=== PATIENT | female | born 1950 | race Caucasian/White ===

== ENCOUNTER → 2017-07-29 16:31 | Outpatient (CLI) | payer MEDICARE, SELFPAY ==
--- NOTE | 2017-07-29 | XR_ITS ---
XR shoulder LT min 2V HISTORY: Post traumatic pain ITS.REASON: LEFT ANTERIOR SHOULDER PAIN ORDERING PHYSICIAN: IDA aJcobs PATIENT AGE: 66 years COMPARISON: None FINDINGS: No fracture or dislocation. No lytic or blastic change. There is normal mineralization. The joint spaces are well-preserved. No significant degenerative/arthritic changes. No erosive changes evident. IMPRESSION: Negative, no acute finding
== END ==
PROVIDERS: PCP Physician Assistant; Visit Provider Physician Assistant
DX: M25.512 Pain in left shoulder (principal)
CPT/HCPCS: 73030

== ENCOUNTER → 2018-04-28 07:02 | Outpatient (CLI) | payer MEDICARE, SELFPAY ==
--- NOTE | 2018-04-28 07:04 | NM_ITS ---
History and Indications: Coronary artery disease, previous GA, hypertension, hyperlipidemia, tobacco use, family history, chest pain and fatigue Procedure: Patient received a 0.4 mg of intravenous Lexiscan, resting heart rate was 69 bpm resting blood pressure 156/79, with Lexiscan maximum heart rate achieved was 90 bpm is less than 85% of the maximum predicted heart rate and a blood pressure was 126/60. With Lexiscan patient complained of shortness of breath and malaise. Electrocardiogram: Resting echocardiogram showed sinus rhythm, with Lexiscan there is less than 1.[address] segment depression noted from the baseline EKG. The EKG portion of the Lexiscan Myoview is nondiagnostic. Cardiac stress and resting SPECT images: Cardiac stress and resting SPECT images were obtained using technetium 99 Myoview 32.9 mC stress and 10.2 mCi rest, gated SPECT further analysis of segmental wall motion and calculation of the ejection fraction also done. Cardiac SPECT images show a mild fixed defect in the anterior wall with normal contractility in the gated SPECT is likely secondary to soft tissue attenuation, no reversible ischemia seen, computer derived ejection fraction is over 65% with no regional wall motion abnormality, right ventricle is normal size and contractility. Conclusion: 1. The EKG portion of the Lexiscan Myoview is nondiagnostic. 2. No scintigraphic evidence of reversible ischemia seen, computer derived ejection fraction is over 65% with normal motion abnormality, right ventricle is normal size and contractility. 3. Normal Lexiscan Myoview study.
--- NOTE | 2018-04-28 07:04 | CA_ITS ---
PROCEDURE: 2-D M-mode and color Doppler study INDICATIONS FOR THE TEST: Chest pain COPD Heart Murmur+ Tobacco Smoking+ Palpitations Fatigue Syncope Edema Hypertension+Diabetes Mellitus Rheumatic Fever SOB DUNN Obesity Hyperlipidemia+ Family History HD Additional History abn ekg, pvd PATIENT INFORMATION HEIGHT:63 WEIGHT:175 GENDER: Female B/P:121/64 2-D/M-MODE INTERPRETATION: 2-D MEASUREMENTS OBSERVED VALUES IN CMS Right Ventricular Dimension (RVDd) 2.7 Interventricular Septum (Thickness)(IVsd) 1.3 Left Ventricular Internal Dimensions(LVIDd) 4.9 Left Ventricular Posterior Wall (Thickness)(LVPWd) 0.7 Aortic Root 2.8 Aortic Cusp Separation 1.8 Left Atrial Dimensions (LAD) 4.1 2D 1. Left atrium is mildly enlarged, left ventricle is normal size, mild concentric left ventricular hypertrophy, visually estimated ejection fraction of 55% with no regional wall motion abnormality. 2. The right atrium and right ventricle are mildly enlarged with normal contractility. 3. The aortic valve is minimally thickened and fibrosed. 4. The mitral and tricuspid valve are grossly normal. 5. The pulmonic valve is poorly visualized. 6. No significant pericardial effusion noted. DOPPLER INTERROGATION: Doppler interrogation of the aortic, mitral and tricuspid valvular presence of mild mitral and tricuspid regurgitation, calculated right ventricular systolic pressure is 40 mmHg consistent with mild pulmonary hypertension, grade 1 diastolic dysfunction seen with tissue Doppler evidence of raised left atrial pressure. CONCLUSION: 1. Mildly enlarged left atrium, normal left ventricular size, mild concentric left ventricular hypertrophy, visually estimated ejection fraction 55% with no regional wall motion abnormality, grade 1 diastolic dysfunction seen with tissue Doppler evidence of raised left atrial pressure. 2. Mildly enlarged right ventricle with normal contractility. 3. Mild mitral and tricuspid regurgitation, calculated right ventricular systolic pressure is 40 mmHg consistent with mild pulmonary hypertension. 4. No significant pericardial effusion noted.
--- NOTE | 2018-04-28 09:56 | HMH.ITSHM ---
Current Home Medications as stated by this patient Melina Marie or patient services representative. []tramadol simvastatin pantoprazole metoprolol clopidogrel asa
== END ==
PROVIDERS: PCP Family Medicine; Visit Provider Internal Medicine
DX: E78.5 Hyperlipidemia, unspecified (principal); F17.200 Nicotine dependence, unspecified, uncomplicated; I25.10 Atherosclerotic heart disease of native coronary artery without angina pectoris; I73.9 Peripheral vascular disease, unspecified; I77.1 Stricture of artery; K21.0 Gastro-esophageal reflux disease with esophagitis; R07.89 Other chest pain
CPT/HCPCS: 78452; 93017; 93306; A9502; J2785

== ENCOUNTER → 2018-08-04 10:17 | Outpatient (CLI) | payer MEDICARE, SELFPAY ==
--- NOTE | 2018-08-04 10:23 | MM_ITS ---
MM Dig screening mamm BI w/CAD CAD Screening COMPARISON: Digital mammograms with CAD 01/20/2017 and 07/06/2012 INDICATION: There Is a history of breast cancer in patient's maternal aunt diagnosed after menopause. TECHNIQUE: Standard CC and MLO images were obtained. R2 CAD reviewed. FINDINGS: The breasts are of low density composed primarily of fat with minimal scattered fibroglandular densities in each breast. There is no new or suspicious lesion in either breast and there are no suspicious microcalcifications. There are couple benign-appearing calcifications right breast and there is faint arterial calcification right breast. IMPRESSION: Fatty type breast parenchyma no suspicious lesion seen BI-RADS Category: 2 Benign Finding(s) RECOMMENDED FOLLOW-UP: 1YR - 1 YEAR FOLLOW-UP (A letter has been sent to the patient regarding results of the study.)
--- NOTE | 2018-08-04 10:24 | CT_ITS ---
CT lung screening EXAM: CT LUNG LOW DOSE WO CONTRAST HISTORY: 42 pack year smoking history asymptomatic for lung cancer ITS.REASON: H/O NICOTINE DEPENDENCE ORDERING PHYSICIAN: Haris Wadsworth MD PATIENT AGE: 67 years COMPARISON: None TECHNIQUE: The exam was performed on a GE Light Speed [address] scanner using 2.90 mGy CTDI. A low dose helical CT CHEST was performed on a multi-detector scanner. All CT scans at the facility use one or more dose reduction, viz: automated exposure control, ma/kV adjustment per patient size (including targeted exams where dose is matched to indication, i.e. head), or iterative reconstruction technique. The LDCT was performed in a facility that meets the criteria for the screening program. Data regarding this exam was submitted to ACR which is an approved registry. The order for this exam indicates that it came as a result of a lung cancer screening counseling shard decision-making visit that included all the elements required of such a visit including smoking cessation. The radiologist interpreting this exam meets the [facility] criteria for the LDCT lung cancer screening program. The exam is reported using the Lung-RADS classification scale and reported to the ACR registry. NOTE: This study was performed for the specific purposes of lung cancer screening and is not an alternative to diagnostic chest CT. RADIATION DOSE: CTDI vol(CT dose Index-volume) = 2.90mG DLP (Dose Length Product) = 99.14 mGcm FINDINGS: COPD. There is a fissural nodule in the right major fissure unchanged 5 mm. 4 mm nodule in the right upper lobe axial image #42 unchanged. Subpleural nodule right lower lobe laterally at 10 mm unchanged. No new nodules evident. There are coronary artery calcifications. Small nodes are present in the axilla mediastinum. IMPRESSION: 1. Lung RADS Category: 2, benign 2. Other findings: COPD, coronary artery disease RECOMMENDATIONS: 12 month LDCT follow-up
== END ==
PROVIDERS: PCP Family Medicine; Referring Provider Family Medicine; Visit Provider Family Medicine
DX: Z12.31 Encounter for screening mammogram for malignant neoplasm of breast (principal); Z87.891 Personal history of nicotine dependence; Z12.2 Encounter for screening for malignant neoplasm of respiratory organs; N60.19 Diffuse cystic mastopathy of unspecified breast
CPT/HCPCS: 77067

== ENCOUNTER → 2019-02-15 11:51 | Outpatient (CLI) | payer MEDICARE, SELFPAY ==
--- NOTE | 2019-02-15 12:00 | XR_ITS ---
PROCEDURE: XR MULTIPLE SPINE 6+V CLINICAL INDICATION: RT SIDE THORACIC BACK PAIN,LOW BACK PAIN COMPARISON: No exams were available for comparison FINDINGS: Thoracic spine: Degenerative changes, no acute fracture. Lumbar spine: Mild lumbar curvature convex right. Facet arthritic changes L5-S1. No acute fracture or dislocation. Generalized vascular calcification. IMPRESSION: Degenerative changes of the thoracic lumbar spine with no acute finding Dictated by: Venkat Smipson MD 02/15/2019 14:03 Signed by: <Electronically signed by Venkat Simpson MD in [place]> 02/15/2019 14:03
--- NOTE | 2019-02-15 12:00 | XR_ITS ---
PROCEDURE: XR RIBS RT 2V CLINICAL INDICATION: RT SIDE RIB PAIN Right-sided chest and rib pain following injury COMPARISON: CXR2V XR chest 2V from 04/14/2018 FINDINGS: A frontal view of the chest shows no acute finding.. Multiple views of the right ribs were obtained. There is a nondisplaced fracture involving the right 10th rib. IMPRESSION: Nondisplaced fracture right 10th rib anteriorly Dictated by: Venkat Simpson MD 02/15/2019 13:02 Signed by: <Electronically signed by Venkat Simpson MD in [place]> 02/15/2019 13:02
--- NOTE | 2019-02-15 12:00 | XR_ITS ---
PROCEDURE: XR HIP RT 2-3V W/PELVIS CLINICAL INDICATION: RT HIP PAIN Fall with injury and pain COMPARISON: No exams were available for comparison FINDINGS: No fracture or dislocation is evident. No significant degenerative change. No lytic or blastic change. Unremarkable soft tissues. IMPRESSION: No acute findings. Dictated by: Venkat Simpson MD 02/15/2019 14:07 Signed by: <Electronically signed by Venkat Simpson MD in [place]> 02/15/2019 14:07
== END ==
PROVIDERS: PCP Family Medicine; Visit Provider Nurse Practitioner
DX: R07.81 Pleurodynia (principal); M54.5 Low back pain; M54.6 Pain in thoracic spine; M25.551 Pain in right hip
CPT/HCPCS: 71100; 72084; 73502

== ENCOUNTER → 2019-11-30 07:57 | Outpatient (CLI) | payer MEDICARE, SELFPAY ==
--- NOTE | 2019-11-30 08:00 | XR_ITS ---
PROCEDURE: XR DEXA AXIAL SKELETON CLINICAL HISTORY: OSTEOPENIA COMPARISON: No exams were available for comparison FINDINGS: Right femoral neck density is 0.610 grams/centimeters sq with a T-score -2.2, osteopenia Total left femoral neck density is 0.751 grams/centimeters sq with T-score -1.6, osteopenia L1-L4 density is 0.980 grams/centimeters sq with T-score -0.6, normal IMPRESSION: Osteopenia with moderate fracture risk. Treatment advised. Suggest follow-up exam in 2 years Dictated by: Venkat Simpson MD 11/30/2019 15:05 Electronically signed by Venkat Simpson MD in [place] 11/30/2019 15:05
--- NOTE | 2019-11-30 08:02 | MM_ITS ---
PROCEDURE: MM DIG SCREENING MAMM BI W/CAD Digital Breast Tomosynthesis Included CLINICAL INDICATION: SCREENING There is a history of breast cancer patient's maternal aunt. COMPARISON: MOBILE DIGITAL SCREEN BILAT* from 07/06/2012 [facility] DIG MAMM-SCREEN JORGE W/CAD from 01/20/2017 [facility] MM Dig screening mamm BI w/CAD from 08/04/2018 TECHNIQUE: Standard CC and MLO images and 3D Tomosynthesis was obtained. R2 CAD reviewed. FINDINGS: There are composed primarily of fat with minimal scattered fibroglandular densities in each breast. Lesion in either breast and no suspicious microcalcifications. IMPRESSION: Fatty type breast parenchyma with no suspicious lesions seen BI-RAD Category: 1 Negative FOLLOW-UP: 1YR 1 Year Follow-up (A letter has been sent to the patient regarding results of the study.) Dictated by: Dr. Mahesh Alan MD 12/03/2019 11:[address] Mahesh Alan MD in [place] 12/03/2019 11:51
== END ==
PROVIDERS: PCP Family Medicine; Visit Provider Family Medicine
DX: Z12.31 Encounter for screening mammogram for malignant neoplasm of breast (principal); M85.89 Other specified disorders of bone density and structure, multiple sites
CPT/HCPCS: 77063; 77067; 77080

== ENCOUNTER 2019-12-28 21:55 | Observation (INO) | payer MEDICARE, SELFPAY ==
[2019-12-28 21:57] VITALS: BP 109/90; PULSE 86; RESP 16; TEMP 37.4; O2SAT 96; BMI 30.9
--- NOTE | 2019-12-28 22:18 | CT_ITS ---
PROCEDURE: CT ABDOMEN PELVIS W CON CLINICAL INDICATION: abd. pain Generalized abdominal pain with fever and vomiting COMPARISON: ABDPELW/O CT ABD PELVIS W/O CONTRAST from 01/24/2017 TECHNIQUE: IV Contrast: 75ML OPTIRAY 350 Oral Contrast None Axial images obtained with sagittal and coronal reformats. All CT scans at the facility use one or more dose reduction, viz: automated exposure control, ma/kV adjustment per patient size (including targeted exams where dose is matched to indication, i.e. head), or iterative reconstruction technique. FINDINGS: LOWER THORAX: No acute finding ABDOMEN & PELVIS: There are 2 hypodensities of the liver both in the right hepatic lobe the largest at 5 mm. These may be due to small cysts. The gallbladder, spleen, adrenal glands, and pancreas have an unremarkable appearance. 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 Mild mucosal enhancement involves the right renal pelvis with some minimal stranding of the Carrie nephric fat and slight decreased attenuation along the lower pole of the right kidney suggestive of pyelonephritis. No renal or ureteral calculi are evident. There is fusiform dilatation of the infrarenal abdominal aorta measuring 3 cm transverse and 2.7 cm AP. No evidence of retroperitoneal hemorrhage. Scattered small retroperitoneal nodes are present. There is postsurgical change with diastasis of the abdominal wall with a small umbilical hernia containing fat. No evidence of appendicitis. There is colonic diverticulosis but no evidence of diverticulitis. There has been a prior hysterectomy. There is a small air bubble within the urinary bladder. IMPRESSION: 1. Findings compatible with right-sided pyelonephritis with malrotation of the right kidney 2. Hepatic cysts. 3. 3 cm infrarenal abdominal aortic aneurysm 4. Colonic diverticulosis without diverticulitis Dictated by: Venkat Simpson MD 12/29/2019 07:32 Electronically signed by Venkat Simpson MD in [place] 12/29/2019 07:32
[2019-12-28 22:22] LABS: Microscopic, Urine URINE MICROSCOPIC (MICROSCOPIC)
[2019-12-28 22:25] LABS: Appearance,Urine CLEAR (Clear); Bilirubin,Urine Negative (Negative); Blood, Urine 2+ (Negative); Color,Urine YELLOW (Yellow); Glucose,Urine (UA) Negative (Negative); Ketones,Urine Negative (Negative); Leukocyte Esterase,Urine 2+ (Negative); Nitrate,Urine POSITIVE (Negative); Protein,Urine Negative (Negative)
[2019-12-28 22:30] LABS: Basophils # 0.1 K/mm3 (0-0.2); Basophils % 0.5 % (0.1-2.0); Eosinophils # 0.1 K/mm3 (0.0-0.4); Eosinophils % 0.6 % (0.1-12.0); Hematocrit 39.5 % (37.0-47.0); Hemoglobin 13.5 g/dL (12.2-16.2); Lymphocytes # 1.4 K/mm3 (0.7-4.5); Mean Corpuscular HGB Conc 34.1 g/dL (31.8-35.4); Mean Corpuscular Hemoglobin 30.4 pg (27.0-31.2); Mean Platelet Volume 8.1 fl (7.4-10.4); Monocytes % 7.1 % (1.7-9.3); Neutrophils # 11.5 K/mm3 (1.8-7.8); Neutrophils % 81.8 % (37.0-80.0); Platelet Count 235 K/mm3 (142-424); Red Blood Count 4.44 M/mm3 (4.20-5.40); White Blood Count 14.1 K/mm3 (4.8-10.8)
[2019-12-28 22:37] LABS: Strep Scrn Group A (Rapid) Negative (Negative)
[2019-12-28 22:40] LABS: Alanine Aminotransferase 15 U/L (12-78); Albumin Level 3.8 g/dl (3.5-5.0); Albumin/Globulin Ratio 1.2 (1.1-1.8); Alkaline Phosphatase 110 U/L (38-126); Amylase 56 U/L (30-110); Anion Gap 11.6 mEq/L (5-15); Aspartate Amino Transferase 25 U/L (14-36); Bilirubin,Total 0.5 mg/dl (0.2-1.3); Blood Urea Nitrogen 16 mg/dl (7-17); Calcium 8.8 mg/dl (8.4-10.2); Carbon Dioxide 24 mmol/L (22.0-30.0); Chloride 101 mmol/L (98-107); Creatinine Clearance Estimated 69 mL/min (50-200); Estimated Glomerular Filt Rate 71 ml/min (>60); GFR (African American) 86 ML/MIN (>60); Globulin 3.2 g/dL (1.3-3.2); Glucose 119 mg/dl (74-100); Lipase 99 U/L (23-300); Potassium 3.6 mmoL/L (3.5-5.1); Sodium 133 mmol/L (136-145)
[2019-12-28 22:45] LABS: C-Reactive Protein 67.6 mg/L (0-4)
[2019-12-28 22:56] LABS: Bacteria,Urine Trace /lpf; WBC,Urine 20-50 #/hpf (0-3)
[2019-12-28 22:57] VITALS: BP 112/82; PULSE 81; RESP 15; O2SAT 97
[2019-12-28 23:24] LABS: Erythrocyte Sedimentation Rate 77 mm/hr (0-30)
--- NOTE | 2019-12-28 23:52 | HMH.EDNVD ---
ED Disposition Clinical Impression: Pyelonephritis, Obesity (BMI 30.0-34.9) Disposition: Admitted as Observation Condition on Discharge: Good Referrals: Haris Wadsworth MD [Primary Care Provider] - - Critical Care Critical Care Time: No Attestation: On 12/28/19, the high probability of a clinically significant, sudden or life threatening deterioration of the following system(s) required my full and direct attention, intervention and personal management. The time I documented below is in addition to time spent performing reported procedures but includes the following listed in this critical care notation. Medical Decision Making - Medical Records Medical records reviewed: Yes: I reviewed the patient's medical records. - Ryan Inquiry Pt receiving controlled substance: No Vital Signs: 12/28/19 21:57 12/28/19 22:57 Temperature 99.3 F Temperature Source Oral Pulse Rate [Left Radial] 86 81 Respiratory Rate 16 15 Blood Pressure [Right Arm] 109/90 L 112/82 Blood Pressure Mean [Right Arm] 96 92 Blood Pressure Source [Right Arm] Automatic Cuff Automatic Cuff Blood Pressure Position [Right Arm] Sitting Sitting 02 Sat by Pulse Oximetry 96 97 Oxygen Delivery Method Room Air Room Air - Lab Data Lab results reviewed: Yes: I reviewed the patient's lab results. Lab Results 12/28/19 22:10: Urine Color Yellow, Urine Appearance Clear, Urine pH 6.0, Ur Specific [place] 1.020, Urine Protein Negative, Urine Glucose (UA) Negative, Urine Ketones Negative, Urine Blood 2+, Urine Nitrate Positive, Urine Bilirubin Negative, Urine Urobilinogen 1.0, Ur Leukocyte Esterase 2+ A, Urine WBC 20-50, Ur Squamous Epith Cells 5-10, Urine Bacteria Trace 12/28/19 22:20: WBC 14.1 H, RBC 4.44, Hgb 13.5, Hct 39.5, MCV 89.0, MCH 30.4, MCHC 34.1, RDW 13.0, Plt Count 235, MPV 8.1, Neut % (Auto) 81.8 H, Lymph % (Auto) 10.0, Creek % (Auto) 7.1, Eos % (Auto) 0.6, Baso % (Auto) 0.5, Neut # (Auto) 11.5 H, Lymph # (Auto) 1.4, Creek # (Auto) 1.0, Eos # (Auto) 0.1, Baso # (Auto) 0.1, ESR 77 H 12/28/19 22:20: Sodium 133 L, Potassium 3.6, Chloride 101, Carbon Dioxide 24, Anion Gap 11.6, BUN 16, Creatinine 0.80, Estimated Creat Clear 69, Estimated GFR 71, Est GFR ( Amer) 86, Glucose 119 H, Calcium 8.8, Total Bilirubin 0.5, AST 25, ALT 15, Alkaline Phosphatase 110, C-Reactive Protein 67.6 H, Total Protein 7.0, Albumin 3.8, Globulin 3.2, Albumin/Globulin Ratio 1.2, Amylase 56, Lipase 99 12/28/19 22:20: Influenza Type A Ag Negative, Influenza Type B Ag Negative 12/28/19 22:20: Group A Strep Rapid Negative Result diagrams: 12/28/19 22:20 12/28/19 22:20 Orders (Tests/Meds): ED MEDICATIONS Generic Name Dose Route Start Last Admin Trade Name Freq PRN Reason Stop Dose Admin Sodium Chloride 1,000 mls @ 999 mls/hr 12/28/19 22:30 12/28/19 22:25 Sod Chlor 0.9% 1000ml Bag IV 12/28/19 23:30 999 mls/hr .Q1H1M DANETTE Administration Sodium Chloride 8 ml 12/28/19 22:23 12/28/19 22:25 Sodium Chloride 0.9% 10ml Vial IV 01/27/20 22:22 8 ml NEEDED PRN Administration dilute pepcid Discontinued Medications Generic Name Dose Route Start Last Admin Trade Name Freq PRN Reason Stop Dose Admin Famotidine 20 mg 12/28/19 22:23 12/28/19 22:24 Pepcid 20mg/2ml Vial IV 12/28/19 22:24 20 mg ONCE ONE Administration Ioversol 75 ml 12/28/19 23:06 12/28/19 23:07 Rad-Optiray 350 100ml Vial IV 12/28/19 23:07 75 ml ONCE ONE Administration Protocol Ketorolac Tromethamine 30 mg 12/28/19 22:23 12/28/19 22:25 Toradol 30mg/Ml Vial IV 12/28/19 22:24 30 mg ONCE ONE Administration Metoclopramide HCl 10 mg 12/28/19 22:23 12/28/19 22:24 Reglan 10mg/2ml Vial IVP 12/28/19 22:24 10 mg ONCE ONE Administration Ondansetron HCl 4 mg 12/28/19 22:23 12/28/19 22:25 Zofran 4mg/2ml Vial IV 12/28/19 22:24 4 mg ONCE ONE Administration Sodium Chloride 10 ml 12/28/19 23:07 12/28/19 23:08 Rad-Saline Flu
--- NOTE | 2019-12-28 23:59 | PC.NURSE ---
Dr Littlejohn speaking with Dr Keenan for admission
[2019-12-29] VITALS (8 sets, daily range): BP systolic 102–140; BP diastolic 52–87; PULSE 63–84; RESP 14–18; TEMP 36.5–37.2; O2SAT 94–98; BMI 31.2; BMI 31.1
[2019-12-29 00:23] LABS: Lactic Acid 0.6 mmol/L (0.7-2.1)
--- NOTE | 2019-12-29 00:35 | PC.NURSE ---
patient up to floor via wheelchair.
[2019-12-29 07:11] LABS: Basophils # 0.1 K/mm3 (0-0.2); Basophils % 0.5 % (0.1-2.0); Eosinophils # 0.2 K/mm3 (0.0-0.4); Eosinophils % 1.9 % (0.1-12.0); Hemoglobin 13.1 g/dL (12.2-16.2); Lymphocytes # 1.7 K/mm3 (0.7-4.5); Lymphocytes % 17.9 % (10-50); Mean Corpuscular HGB Conc 33.6 g/dL (31.8-35.4); Mean Corpuscular Hemoglobin 30.3 pg (27.0-31.2); Mean Platelet Volume 8.9 fl (7.4-10.4); Monocytes # 0.8 K/mm3 (0.1-1.0); Monocytes % 7.8 % (1.7-9.3); Platelet Count 209 K/mm3 (142-424); Red Blood Count 4.33 M/mm3 (4.20-5.40); Red Cell Distribution Width 12.9 % (11.5-17.5); White Blood Count 9.7 K/mm3 (4.8-10.8)
[2019-12-29 07:12] LABS: Chloride 108 mmol/L (98-107); Potassium 3.5 mmoL/L (3.5-5.1); Sodium 139 mmol/L (136-145)
[2019-12-29 07:14] LABS: Blood Urea Nitrogen 14 mg/dl (7-17); Creatinine Clearance Estimated 70 mL/min (50-200); Estimated Glomerular Filt Rate 71 ml/min (>60); GFR (African American) 86 ML/MIN (>60)
[2019-12-29 07:15] LABS: Anion Gap 9.5 mEq/L (5-15); Calcium 8.3 mg/dl (8.4-10.2); Carbon Dioxide 25 mmol/L (22.0-30.0); Glucose 87 mg/dl (74-100); Magnesium 2.1 mg/dl (1.6-2.3)
--- NOTE | 2019-12-29 08:31 | HMH.HP ---
*Admission Date: 12/29/19 *Chief complaint: Fever and chills *History of present illness: Melina presented to the emergency room last night with a 2-day history of fever, chills, body aches, nausea, vomiting, and abdominal pain. She reported fever up to 102 at home. No respiratory symptoms. She was worked up in the emergency room and found to have an elevated white count of 14,[address] scan of the abdomen suspicious for pyelonephritis. She is been admitted for further evaluation and treatment. [facility] History Medical History: Reports:: Chronic Obstructive Pulmonary Disease (COPD), Coronary Artery Disease, Gastroesophageal Reflux Disease(GERD), Heart Murmur, Hyperlipidemia, Hypertension, Myocardial Infarction (NSTEMI 2017), Peripheral Vascular Disease Denies:: Cancer, Diabetes Mellitus Type 1, Diabetes Mellitus Type 2 *Have you ever received a pneumonia vaccine?: Yes *Have you received a flu vaccine this season?: No Other Medical History: Reports: Arthritis Laterality Cases: Bilateral: Tonsillectomy Other Surgeries: Yes: Cardiac Catheterization, (x2), Hysterectomy-Total, Tubal Ligation, Other (Right internal carotid artery stent 2013; left subclavian artery stent 2013) Amputation: No Fractures: Yes (r wrist) - *Social History Last grade of school completed: High school graduate Smoking Status: Current every day smoker (1 PPD) Tobacco Type: cigarettes # Packs/Day (cigarettes): 1 Alcohol Intake: never Substance Use Type: denies use *Occupational Status:: retired Housing: house Household Members: family *Travel in the last 8 weeks: None Family Hx:: Cancer (Father with lung cancer, mother with brain cancer, brother with leukemia, brother with melanoma), Heart Attack Review of Systems - Constitutional Reports body ache(s), Reports chills, Reports malaise, Denies anorexia - Eyes Denies blurry vision, Denies change in vision - ENT Denies abnormal hearing, Denies sore throat, Denies dizziness - *Cardiovascular Reports shortness of breath, Denies chest pain, Denies leg swelling - *Respiratory Denies chest congestion, Denies cough - *Gastrointestinal Reports other (See HPI) - *Genitourinary Denies abnormal vaginal bleeding, Denies difficulty starting urination, Denies urinary incontinence - *Musculoskeletal Reports back pain, Reports body aches - Integumentary/Breasts Denies hair loss, Denies rash - *Neurologic Denies confusion, Denies dizziness, Denies seizure-like activity - Psychiatric Denies confusion, Denies depression Meds Home Medications Medication Instructions Recorded Confirmed Type aspirin 81 mg tablet,delayed 81 mg PO ONCE 07/27/17 12/28/19 History release clopidogrel 75 mg tablet 75 mg PO ONCE 07/27/17 12/28/19 History coenzyme Q10 30 mg capsule 30 mg PO ONCE 07/27/17 12/28/19 History pantoprazole 40 mg tablet,delayed 40 mg PO QAM 07/27/17 12/28/19 History release simvastatin 40 mg tablet 40 mg PO QAM 07/27/17 12/28/19 History metoprolol succinate 25 mg 25 mg PO DAILY tab 04/20/18 12/28/19 History tablet,extended release 24 hr acetaminophen 325 mg capsule 325 mg PO QID PRN 08/22/19 12/28/19 History Allergies Allergy/AdvReac Type Severity Reaction Status Date / Time ciprofloxacin [From CIPRO] Allergy Unknown Verified 08/22/19 14:43 Exam Vital signs and Labs for Last 24 Hours: Temp Pulse Resp BP Pulse Ox 98.3 F 79 17 140/60 98 12/29/19 08:00 12/29/19 08:00 12/29/19 08:00 12/29/19 08:00 12/29/19 08:00 Laboratory Results - last 24 hr 12/28/19 22:10: Urine Color Yellow, Urine Appearance Clear, Urine pH 6.0, Ur Specific [place] 1.020, Urine Protein Negative, Urine Glucose (UA) Negative, Urine Ketones Negative, Urine Blood 2+, Urine Nitrate Positive, Urine Bilirubin Negative, Urine Urobilinogen 1.0, Ur Leukocyte Esterase 2+ A, Urine WBC 20-50, Ur Squamous Epith Cells 5-10, Urine Bacteria Trace 12/28/19 22:20: WBC 14.1 H, RBC 4.44, Hgb 13.5, Hct 39.5, MC
--- NOTE | 2019-12-29 11:42 | HMH.PHAVTE ---
[facility] VTE Monitoring - Patient Demographics Admission date: 12/28/19 Report Date: 12/29/19 Time: 11:42 Allergies/Adverse Reactions: Patient Allergies ciprofloxacin [From CIPRO] Allergy (Unknown, Verified 08/22/19 14:43) Height: 1.63 m Weight: 82.781 kg Patient Problems: Current Active Problems Pyelonephritis (Acute) Obesity (BMI 30.0-34.9) (Acute) - VTE Risk Labs: VTE Related Lab Results Hgb 13.1 g/dL (12.2-16.2) 12/29/19 06:30 Hct 39.0 % (37.0-47.0) 12/29/19 06:30 Plt Count 209 K/mm3 (142-424) 12/29/19 06:30 BUN 14 mg/dl (7-17) 12/29/19 06:30 Creatinine 0.80 mg/dl (0.52-1.04) 12/29/19 06:30 Estimated Creat Clear 70 mL/min (50-200) 12/29/19 06:30 VTE Risk Level: Moderate Risk - Prophylaxis VTE Prophylaxis Ordered?: Yes Types of VTE Prophylaxis: TEDS Knee High Location of Applied Device: Bilateral Lower Extremeties - VTE Diagnosis Confirmed Treatment or plan recommended: Continue Current Treatment
--- NOTE | 2019-12-29 14:35 | HMH.PHAINT ---
MEDICATION RECONCILIATION COMPLETED ON PATIENT USING EXTERNAL FILL HISTORY FROM PHARMACY, PATIENT INTERVIEW, AND LIST FROM MD OFFICE. -LYRIC POLKD
--- NOTE | 2019-12-29 18:17 | PC.NURSE ---
ALERT AND ORIENTED X4. PT OOB TO CHAIR AND AMBULATES INDEPENDENTLY IN ROOM WITHOUT PROBLEM. PT DENIES PAIN. NO COMPLAINTS VOICED. VSS. SAFETY MEASURES IN PLACE, WILL CONTINUE TO MONITOR
[2019-12-30 03:58] VITALS: BP 137/63; PULSE 86; RESP 17; TEMP 36.6; O2SAT 94
--- NOTE | 2019-12-30 04:12 | PC.NURSE ---
No acute changes. Pt rested in long intervals. No complaints reported to staff beside BRIAN, medicated w/ tylenol. Pt voiding via BSC independently w/ adequate output.
[2019-12-30 06:16] VITALS: BMI 31.5
[2019-12-30 08:00] VITALS: BP 157/75; PULSE 64; RESP 16; TEMP 37.1; O2SAT 96
--- NOTE | 2019-12-30 08:51 | P.PN_ITS ---
Internal Medicine - PN: Subj *Date: 12/30/19 *Time: 09:06 Interval history: She is feeling much better this morning with no further chills or shaking. She is requesting to be discharged home. She denies abdominal pain or dysuria. No shortness of breath. She is tolerating her diet. Exam Vital signs and Labs for Last 24 Hours: Temp Pulse Resp BP Pulse Ox 97.9 F 86 17 137/63 94 L 12/30/19 03:58 12/30/19 03:58 12/30/19 03:58 12/30/19 03:58 12/30/19 03:58 I & O for Last 24 hours: Intake & Output 12/27/19 12/28/19 12/29/19 12/30/19 11:59 11:59 11:59 11:59 Intake Total 1915 / 1915 3348 / 3348 Output Total 620 / 620 3180 / 3180 Balance 1295 / 1295 168 / 168 Weight 182 lb 8 oz 184 lb 11.252 oz Microbiology Reports for the Last 24 Hours: Microbiology 12/28/19 22:10 Urine,Clean Catch Urine Culture - Final Escherichia coli 12/30/19 05:14 Sputum - Expectorated Sputum Gram Stain - Final Narrative: She is sitting on the edge of the bed and appears in no distress. Color is normal. Chest with coarse breath sounds but no rales or wheezes. Heart is regular. Abdomen is soft and nondistended with no tenderness. No CVA tenderness. Assessment and Plan (1) Pyelonephritis Current visit: Yes Status: Acute Category: Medical Code(s): N12 - Tubulo- interstitial nephritis, not specified as acute or chronic (2) E coli infection Current visit: Yes Status: Acute Category: Medical Code(s): A49.8 - Other bacterial infections of unspecified site (3) History of coronary artery disease Current visit: Yes Status: Acute Category: Medical Code(s): Z86.79 - Personal history of other diseases of the circulatory system (4) Hypertension Current visit: Yes Status: Acute Category: Medical Code(s): I10 - Essential (primary) hypertension (5) COPD (chronic obstructive pulmonary disease) Current visit: Yes Status: Acute Category: Medical Code(s): J44.9 - Chronic obstructive pulmonary disease, unspecified (6) Tobacco abuse Current visit: Yes Status: Acute Category: Medical Code(s): Z72.0 - Tobacco use (7) Carotid artery disease Current visit: Yes Status: Acute Category: Medical Code(s): I77.9 - Disorder of arteries and arterioles, unspecified (8) Peripheral arterial disease Current visit: Yes Status: Acute Category: Medical Code(s): I73.9 - Peripheral vascular disease, unspecified - Assessment and plan all Dx Assessment and Plan for all problems:: Her urine cultures returned showing E. coli which is pansensitive. Clinically and subjectively she is improved. She is stable to be discharged home on oral antibiotics and will follow-up with Dr. Wadsworth within the week.
--- NOTE | 2019-12-31 10:28 | HMH.DCSUM ---
General - General Admission date:: 12/29/19 <Kenyon Keenan - 01/09/20 13:28> 12/29/19 <Beverly Calhoun - 12/31/19 10:34> Discharge date: 12/30/19 <Beverly Calhoun - 12/31/19 10:34> HPI HPI: Melina presented to the emergency room with a 2-day history of fever, chills, body aches, nausea, vomiting, and abdominal pain. She reported fever up to 102 at home. No respiratory symptoms. She was worked up in the emergency room and found to have an elevated white count of 14,[address] scan of the abdomen suspicious for pyelonephritis. She was admitted for further evaluation and treatment and started empirically on Invanz. By the following morning, her WBC had normalized. Urine and blood cultures remained pending. By the morning of 12/30/2019, the patient was feeling better and requesting discharge. Urine culture showed pansensitive E.coli and she was felt stable for discharge with outpatient followup with Dr. Wadsworth within the week. <Beverly Calhoun - 12/31/19 10:34> Objective Vital signs: Temp Pulse Resp BP Pulse Ox 98.8 F 64 16 157/75 H 96 12/30/19 08:00 12/30/19 08:00 12/30/19 08:00 12/30/19 08:00 12/30/19 08:00 <Kenyon Keenan - 01/09/20 13:28> Temp Pulse Resp BP Pulse Ox 98.8 F 64 16 157/75 H 96 12/30/19 08:00 12/30/19 08:00 12/30/19 08:00 12/30/19 08:00 12/30/19 08:00 <Beverly Calhoun - 12/31/19 10:34> Results Labs on day of discharge: Preliminary micro results at discharge 12/30/19 05:14 Sputum Culture - Preliminary Sputum - Expectorated Sputum 12/29/19 00:00 Blood Culture - Preliminary Blood NO GROWTH AFTER 48 HOURS 12/29/19 00:00 Blood Culture - Preliminary Blood NO GROWTH AFTER 48 HOURS <Beverly Calhoun 12/31/19 10:34> DS: Diagnosis - Discharge Diagnosis (1) Pyelonephritis Status: Acute (2) E coli infection Status: Acute (3) History of coronary artery disease Status: Acute (4) Hypertension Status: Acute (5) COPD (chronic obstructive pulmonary disease) Status: Acute (6) Tobacco abuse Status: Acute (7) Carotid artery disease Status: Acute (8) Peripheral arterial disease Status: Acute <Beverly Calhoun - 12/31/19 10:28> (1) Pyelonephritis Status: Acute (2) E coli infection Status: Acute (3) History of coronary artery disease Status: Acute (4) Hypertension Status: Acute (5) COPD (chronic obstructive pulmonary disease) Status: Acute (6) Tobacco abuse Status: Acute (7) Carotid artery disease Status: Acute (8) Peripheral arterial disease Status: Acute <Kenyon Keenan - 01/09/20 13:28> Discharge Plan - Patient Discharge Instructions ACTIVITY: Continue current activity <Beverly Calhoun - 12/31/19 10:34> DIET: continue same diet <Beverly Calhoun - 12/31/19 10:34> Patient Instructions: DI for Kidney Infection <Kenyon Keenan - 01/09/20 13:28> Forms: <Kenyon Keenan - 01/09/20 13:28> - Follow up Plan Follow up with: Haris Wadsworth MD [Primary Care Provider] - 01/03/20 <Kenyon Keenan - 01/09/20 13:28> Disposition: Home, Self-Care <Kenyon Keenan - 01/09/20 13:28> Home Medications: Home Medications Medication Instructions Recorded Confirmed Type aspirin 81 mg tablet,delayed 81 mg PO DAILY 07/27/17 12/29/19 History release clopidogrel 75 mg tablet 75 mg PO DAILY 07/27/17 12/29/19 History pantoprazole 40 mg tablet,delayed 40 mg PO DAILY 07/27/17 12/29/19 History release simvastatin 40 mg tablet 40 mg PO HS 07/27/17 12/29/19 History acetaminophen 325 mg capsule 325 mg PO QID PRN 08/22/19 12/28/19 History Calcium Carbonate/Vitamin D3 1 each PO DAILY 12/29/19 12/29/19 History [Calcium 600-D3 20Mcg(800 Unit)] Metoprolol Succinate [Metoprolol 25 mg PO DAILY 12/29/19 12/29/19 History Succinate 25mg Tablet*] Ubidecarenone [Coenzyme Q10] 100 mg PO DAILY 12/29/19 12/29/19 History cefUROXime
== END 2019-12-30 09:45 | disposition home or self-care (01) ==
LOC: ER 22:09 → 2ND 12-29 00:03
PROVIDERS: Admitting Provider Family Medicine; Emergency Provider Emergency Medicine; PCP Family Medicine; Visit Provider Family Medicine
DX: N10 Acute pyelonephritis (principal); J44.9 Chronic obstructive pulmonary disease, unspecified; I25.10 Atherosclerotic heart disease of native coronary artery without angina pectoris; I25.2 Old myocardial infarction; Z95.5 Presence of coronary angioplasty implant and graft; Z72.0 Tobacco use; Z79.01 Long term (current) use of anticoagulants; Z79.82 Long term (current) use of aspirin; Z79.899 Other long term (current) drug therapy; B96.20 Unspecified Escherichia coli [E. coli] as the cause of diseases classified elsewhere
CPT/HCPCS: 36415; 74177; 80048; 80053; 81001; 82150; 83605; 83690; 83735; 85025; 85651; 86140; 87040; 87070; 87086; 87088; 87186; 87205; 87275; 87276; 87430; 96365; 96367; 96375; 99285; G0378; J1335; J2405; Q9967

== ENCOUNTER → 2020-02-06 10:07 | Outpatient (CLI) | payer MEDICARE, SELFPAY ==
--- NOTE | 2020-02-06 10:13 | CT_ITS ---
PROCEDURE: CT LUNG SCREENING CLINICAL INDICATION: NICOTINE DEPENDENCE, CIGARETTES, UNCOMPLICATED CURRENT SMOKER 43 PACK YEAR SMOKING HISTORY COMPARISON: CT LUNGSCREEN CT lung screening from 08/04/2018 TECHNIQUE: The exam was performed on a GE Light Speed [address] scanner using 2.90 mGy CTDI. A low dose helical CT CHEST was performed on a multi-detector scanner. All CT scans at the facility use one or more dose reduction, viz: automated exposure control, ma/kV adjustment per patient size (including targeted exams where dose is matched to indication, i.e. head), or iterative reconstruction technique. The LDCT was performed in a facility that meets the criteria for the screening program. Data regarding this exam was submitted to ACR which is an approved registry. The order for this exam indicates that it came as a result of a lung cancer screening counseling shard decision-making visit that included all the elements required of such a visit including smoking cessation. The radiologist interpreting this exam meets the CMS criteria for the LDCT lung cancer screening program. The exam is reported using the Lung-RADS classification scale and reported to the ACR registry. NOTE: This study was performed for the specific purposes of lung cancer screening and is not an alternative to diagnostic chest CT. RADIATION DOSE: CTDI vol(CT dose Index-volume) = 2.90mG DLP (Dose Length Product) = 105.25 mGcm Lung Rads Category: FINDINGS: OPD changes. Pleural nodular density noted on the right in the major fissure unchanged at 4 mm. 10 mm subpleural nodule in the right lower lobe unchanged 4 mm noncalcified nodule right lower lobe posteriorly image 57 series 3 unchanged 4 mm subpleural nodule left lower lobe image 56 series 3 unchanged OTHER FINDINGS: There is a vascular stent in the left subclavian artery. Coronary artery calcifications are present IMPRESSION: Lung rads category 2 benign. Recommend 12 month LDCT follow-up Dictated by: Venkat Simpson MD 02/12/2020 15:10 Venkat Simpson MD in [facility] 02/12/2020 15:10
== END ==
PROVIDERS: PCP Family Medicine; Visit Provider Family Medicine
DX: Z87.891 Personal history of nicotine dependence (principal)

== ENCOUNTER 2020-02-08 16:22 | Observation (INO) | payer MEDICARE, SELFPAY ==
[2020-02-08] VITALS (8 sets, daily range): BP systolic 121–161; BP diastolic 55–77; PULSE 65–80; RESP 17–20; TEMP 36.8; O2SAT 94–99; BMI 32.5
--- NOTE | 2020-02-08 16:10 | ECG_ITS ---
APPROVED REPORT Exam: Resting ECG HR:79 bpm ECG Measurements Heart Rate 79 AXES DE 162 P 55 QRSd 106 QRS -36 QT 408 T 65 QTc 467 <Conclusion> Normal sinus rhythm Left axis deviation Abnormal ECG Electronically signed by : Albino Bartholomew, 02/09/2020 05:52:38
--- NOTE | 2020-02-08 16:25 | XR_ITS ---
PROCEDURE: XR CHEST PORTABLE CLINICAL HISTORY: chest pain COMPARISON: CR CXR2V XR chest 2V from 04/14/2018 FINDINGS: The cardiomediastinal silhouette and pulmonary vascularity are within normal limits. Patchy infiltrate is present in the right lung base medially. The remaining lungs are clear. There is a vascular stent in the left subclavian area. No acute bony abnormalities. IMPRESSION: Patchy infiltrate in the right lung base medially Dictated by: Venkat Simpson MD 02/08/2020 17:06 Venkat Simpson MD in [facility] 02/08/2020 17:06
[2020-02-08 16:37] LABS: Basophils # 0.1 K/mm3 (0-0.2); Basophils % 0.9 % (0.1-2.0); Eosinophils # 0.4 K/mm3 (0.0-0.4); Eosinophils % 4.7 % (0.1-12.0); Hematocrit 36.9 % (37.0-47.0); Hemoglobin 12.8 g/dL (12.2-16.2); Lymphocytes # 1.8 K/mm3 (0.7-4.5); Lymphocytes % 22.7 % (10-50); Mean Corpuscular HGB Conc 34.6 g/dL (31.8-35.4); Mean Corpuscular Hemoglobin 30.7 pg (27.0-31.2); Mean Corpuscular Volume 88.7 fl (81-99); Mean Platelet Volume 8.1 fl (7.4-10.4); Monocytes # 0.6 K/mm3 (0.1-1.0); Monocytes % 7.4 % (1.7-9.3); Neutrophils # 5.3 K/mm3 (1.8-7.8); Neutrophils % 64.3 % (37.0-80.0); Platelet Count 282 K/mm3 (142-424); Red Blood Count 4.15 M/mm3 (4.20-5.40); Red Cell Distribution Width 13.4 % (11.5-17.5); White Blood Count 8.2 K/mm3 (4.8-10.8)
[2020-02-08 16:42] LABS: Chloride 106 mmol/L (98-107); Sodium 142 mmol/L (136-145)
[2020-02-08 16:43] LABS: Potassium 3.4 mmoL/L (3.5-5.1)
[2020-02-08 16:45] LABS: Blood Urea Nitrogen 15 mg/dl (7-17); Creatinine Clearance Estimated 73 mL/min (50-200)
[2020-02-08 16:46] LABS: Anion Gap 10.4 mEq/L (5-15); Calcium 9.1 mg/dl (8.4-10.2); Carbon Dioxide 29 mmol/L (22.0-30.0); Estimated Glomerular Filt Rate 71 ml/min (>60); GFR (African American) 86 ML/MIN (>60); Glucose 114 mg/dl (74-100)
[2020-02-08 17:01] LABS: Troponin I < 0.01 ng/ml (0.00-0.034)
--- NOTE | 2020-02-08 18:19 | PC.NURSE ---
PT AMBULATED UP TO BR
[2020-02-08 18:40] LABS: Microscopic, Urine URINE MICROSCOPIC (MICROSCOPIC)
[2020-02-08 18:44] LABS: Appearance,Urine SL CLOUDY (Clear); Bilirubin,Urine Negative (Negative); Blood, Urine Negative (Negative); Color,Urine YELLOW (Yellow); Glucose,Urine (UA) Negative (Negative); Ketones,Urine Negative (Negative); Leukocyte Esterase,Urine 1+ (Negative); Nitrate,Urine Negative (Negative); Protein,Urine Negative (Negative)
[2020-02-08 18:53] LABS: Bacteria,Urine 1+ /lpf; RBC,Urine Occasional #/hpf (0-3); WBC,Urine 20-50 #/hpf (0-3)
--- NOTE | 2020-02-08 18:53 | HMH.EDGENADL ---
ED Disposition Clinical Impression: Angina pectoris, Cystitis Disposition: Admitted as Observation Condition on Discharge: Fair - Critical Care Critical Care Time: No Attestation: On 02/08/20, the high probability of a clinically significant, sudden or life threatening deterioration of the following system(s) required my full and direct attention, intervention and personal management. The time I documented below is in addition to time spent performing reported procedures but includes the following listed in this critical care notation. Medical Decision Making - Medical Records Medical records reviewed: Yes: I reviewed the patient's medical records. MR Comment: Non-STEMI in 2017, heart cath reviewed. Stress test from 2018 reviewed. Reviewed urine culture and sensitivity results from recent admission. - Ryan Inquiry Pt receiving controlled substance: No Vital Signs: 02/08/20 16:23 02/08/20 17:53 02/08/20 18:53 Temperature 98.2 F Temperature Source Oral Pulse Rate Pulse Rate [Right Radial] 80 Pulse Rate [Right] 76 78 68 Respiratory Rate 20 20 19 Blood Pressure Blood Pressure [Right Arm] 125/62 121/57 L 127/55 L Blood Pressure Mean [Right Arm] 83 78 79 Blood Pressure Source Blood Pressure Source [Right Arm] Automatic Cuff Automatic Cuff Blood Pressure Position Blood Pressure Position [Right Arm] Sitting Sitting 02 Sat by Pulse Oximetry 94 L 97 96 Oxygen Delivery Method Room Air Room Air Room Air 02/08/20 19:28 02/08/20 20:02 02/08/20 20:09 Temperature 98.2 F Temperature Source Oral Pulse Rate 66 Pulse Rate [Right Radial] Pulse Rate [Right] 69 65 Respiratory Rate 18 18 18 Blood Pressure 133/67 Blood Pressure [Right Arm] 129/62 133/67 Blood Pressure Mean [Right Arm] 84 89 Blood Pressure Source Automatic Cuff Blood Pressure Source [Right Arm] Automatic Cuff Blood Pressure Position Sitting Blood Pressure Position [Right Arm] Sitting 02 Sat by Pulse Oximetry 96 97 Oxygen Delivery Method Room Air - Lab Data Lab results reviewed: Yes: I reviewed the patient's lab results. Lab Results 02/08/20 16:25: WBC 8.2, RBC 4.15 L, Hgb 12.8, Hct 36.9 L, MCV 88.7, MCH 30.7, MCHC 34.6, RDW 13.4, Plt Count 282, MPV 8.1, Neut % (Auto) 64.3, Lymph % (Auto) 22.7, [place] % (Auto) 7.4, Eos % (Auto) 4.7, Baso % (Auto) 0.9, Neut # (Auto) 5.3, Lymph # (Auto) 1.8, [place] # (Auto) 0.6, Eos # (Auto) 0.4, Baso # (Auto) 0.1 02/08/20 16:25: Sodium 142, Potassium 3.4 L, Chloride 106, Carbon Dioxide 29, Anion Gap 10.4, BUN 15, Creatinine 0.80, Estimated Creat Clear 73, Estimated GFR 71, Est GFR ( Amer) 86, Glucose 114 H, Calcium 9.1, Troponin I < 0.01 02/08/20 16:25: SARS-CoV-2 IgG Ab (Rapid) Negative, SARS-CoV-2 IgM Ab (Rapid) Negative 02/08/20 18:30: Urine Color Yellow, Urine Appearance Sl cloudy, Urine pH 6.0, Ur Specific [place] 1.020, Urine Protein Negative, Urine Glucose (UA) Negative, Urine Ketones Negative, Urine Blood Negative, Urine Nitrate Negative, Urine Bilirubin Negative, Urine Urobilinogen 1.0, Ur Leukocyte Esterase 1+ A, Urine RBC Occasional, Urine WBC 20-50, Ur Squamous Epith Cells 3-5, Urine Bacteria 1+ 02/08/20 19:02: Troponin I < 0.01 Result diagrams: 02/08/20 16:25 02/08/20 16:25 Orders (Tests/Meds): ED MEDICATIONS Generic Name Dose Route Start Last Admin Trade Name Freq PRN Reason Stop Dose Admin Acetaminophen 650 mg 02/08/20 20:00 Acetaminophen 325mg Tab PO 03/09/20 19:59 Q4HP PRN As Needed for Fever or Pain Ceftriaxone Sodium 1 gm/ 50 mls @ 100 mls/hr 02/09/20 19:30 Sodium Chloride IV 02/22/20 19:29 Q24H DANETTE Protocol Ondansetron HCl 4 mg 02/08/20 20:00 Zofran 4mg/2ml Vial IV 03/09/20 19:59 Q8HP PRN Nausea Potassium Chloride 20 meq 02/08/20 21:00 Klor-Con 20meq Tablet PO 03/09/20 20:59 BID DANETTE Discontinued Medications Generic Name Dose Route Start Last Admin Trade Name Freq PRN Reason
--- NOTE | 2020-02-08 19:45 | PC.NURSE ---
Patient was unsure what the correct meds are that she takes currently so her daughter went home to get them at this time
[2020-02-08 19:48] LABS: Troponin I < 0.01 ng/ml (0.00-0.034)
[2020-02-08 19:52] LABS: Coronavirus 19 IgG Antibody Negative (Negative); Coronavirus 19 IgM Antibody Negative (Negative)
--- NOTE | 2020-02-08 20:02 | PC.NURSE ---
Called report to Isabell. Let her know that medications were not reconciled due to pt being unsure of what she takes. Let her know that daughter ran home to grab her home medications.
--- NOTE | 2020-02-08 20:12 | PC.NURSE ---
PATIENT CAME TO FLOOR AT 2011 WITH ASSISTANCE FROM PAUL YEAGER
--- NOTE | 2020-02-08 20:44 | CT_ITS ---
PROCEDURE: CT CHEST WO CON CLINICAL INDICATION: chest pain, infiltrate Centralized chest pain, possible infiltrate in the lung base COMPARISON: CT LUNGSCREEN CT lung screening from 08/04/[address] LUNG SCREENING from 02/06/2020 CR XR CHEST PORTABLE from 02/08/2020 TECHNIQUE: Axial images obtained with sagittal and coronal reformats. All CT scans at the facility use one or more dose reduction, viz: automated exposure control, ma/kV adjustment per patient size (including targeted exams where dose is matched to indication, i.e. head), or iterative reconstruction technique. FINDINGS: HEART AND MEDIASTINAL STRUCTURES: There are scattered small mediastinal lymph nodes. Coronary artery calcifications. Normal heart size. Mild nonspecific thickening of the distal esophagus LUNGS AND PLEURAL SPACES: 1 cm subpleural nodular opacity right lower lobe laterally which is not significantly changed from 02/06/2020 and 08/04/2018.. No lobar consolidation or collapse is evident. The abnormality noted on the radiograph of the same day may have been due to an area atelectasis which has since resolved. BONY STRUCTURES: Degenerative changes thoracic spine UPPER ABDOMEN: Unremarkable. ADDITIONAL FINDINGS: No other significant abnormalities. IMPRESSION: No acute finding. No lobar consolidation or collapse. Radiographic abnormality may have been due to atelectasis which has resolved 10 mm subpleural nodule right lower lobe laterally not significantly changed from 08/04/2018 Dictated by: Venkat Simpson MD 02/09/2020 07:40 Venkat Simpson MD in [facility] 02/09/2020 07:40
--- NOTE | 2020-02-08 20:50 | HMH.HP ---
*Admission Date: 02/08/20 *Chief complaint: Chest and epigastric pain *History of present illness: This 69-year-old white female with history of coronary artery disease presented in the emergency room with complaints of left chest and epigastric pain. Apparently she has been having this pain for a while off and on. Tonight she cannot seem to be comfortable with it. She is not been short of breath. She has previously had some nausea with the epigastric discomfort. She is smoking about 1/2 pack of cigarettes per day. She has chronic lung disease. She has peripheral vascular disease as well with carotid stenosis. [facility] History Medical History: Reports:: Chronic Obstructive Pulmonary Disease (COPD), Coronary Artery Disease, Gastroesophageal Reflux Disease(GERD), Heart Murmur, Hyperlipidemia, Hypertension, Myocardial Infarction (NSTEMI 2017), Peripheral Vascular Disease Denies:: Cancer, Diabetes Mellitus Type 1, Diabetes Mellitus Type 2 *Have you ever received a pneumonia vaccine?: No *Have you received a flu vaccine this season?: No Other Medical History: Reports: Arthritis Laterality Cases: Bilateral: Tonsillectomy Other Surgeries: Yes: Cardiac Catheterization, (x2), Hysterectomy-Total, Tubal Ligation, Other (Right internal carotid artery stent 2013; left subclavian artery stent 2013) Amputation: No Fractures: Yes (r wrist) - *Social History Smoking Status: Current every day smoker (1 PPD) Tobacco Type: cigarettes # Packs/Day (cigarettes): 1 Alcohol Intake: never Substance Use Type: denies use *Occupational Status:: retired Housing: house Household Members: family *Travel in the last 8 weeks: None Family Hx:: Cancer (Father with lung cancer, mother with brain cancer, brother with leukemia, brother with melanoma), Heart Attack Review of Systems - Constitutional Denies body ache(s), Denies chills - Eyes Denies change in vision - ENT Denies dizziness - *Cardiovascular Reports chest pain, Reports chest pain at rest, Reports chest pain with activity, Denies shortness of breath, Denies irregular heart rhythm - *Respiratory Denies chest congestion, Denies cough, Denies shortness of breath - *Gastrointestinal Reports abdominal pain (Epigastrium), Denies change in stools, Denies constipation, Denies loose stools, Denies pain with swallowing - *Neurologic Denies abnormal speech, Denies seizure-like activity - Psychiatric Denies behavioral changes Meds Home Medications Medication Instructions Recorded Confirmed Type aspirin 81 mg tablet,delayed 81 mg PO DAILY 07/27/17 12/29/19 History release clopidogrel 75 mg tablet 75 mg PO DAILY 07/27/17 12/29/19 History pantoprazole 40 mg tablet,delayed 40 mg PO DAILY 07/27/17 12/29/19 History release simvastatin 40 mg tablet 40 mg PO HS 07/27/17 12/29/19 History acetaminophen 325 mg capsule 325 mg PO QID PRN 08/22/19 12/28/19 History Calcium Carbonate/Vitamin D3 1 each PO DAILY 12/29/19 12/29/19 History [Calcium 600-D3 20Mcg(800 Unit)] Metoprolol Succinate [Metoprolol 25 mg PO DAILY 12/29/19 12/29/19 History Succinate 25mg Tablet*] Ubidecarenone [Coenzyme Q10] 100 mg PO DAILY 12/29/19 12/29/19 History cefUROXime axetiL [Ceftin 500mg 500 mg PO BID #20 tab 12/30/19 Rx Tab (GEQ)] Allergies Allergy/AdvReac Type Severity Reaction Status Date / Time ciprofloxacin [From CIPRO] Allergy Unknown Verified 08/22/19 14:43 Exam Vital signs and Labs for Last 24 Hours: Temp Pulse Resp BP Pulse Ox 98.2 F 67 18 146/77 H 99 02/08/20 20:12 02/08/20 20:12 02/08/20 20:12 02/08/20 20:12 02/08/20 20:12 Laboratory Results - last 24 hr 02/08/20 16:25: WBC 8.2, RBC 4.15 L, Hgb 12.8, Hct 36.9 L, MCV 88.7, MCH 30.7, MCHC 34.6, RDW 13.4, Plt Count 282, MPV 8.1, Neut % (Auto) 64.3, Lymph % (Auto) 22.7, [place] % (Auto) 7.4, Eos % (Auto) 4.7, Baso % (Auto) 0.9, Neut # (Auto) 5.3, Lymph # (Auto) 1.8, [place] # (Auto) 0.6, Eos # (Auto) 0.4, Baso # (Auto) 0.1
--- NOTE | 2020-02-08 22:07 | PC.NURSE ---
Radiology taking pt for CT scan at this time.
--- NOTE | 2020-02-08 22:07 | PC.NURSE ---
Pt's daughter, Miriam Garcia, brought pt's home meds. 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 Pharmacy/home med magnet placed in pts door.
--- NOTE | 2020-02-08 22:11 | PC.NURSE ---
patients heart monitor was suspended because the patient left the floor with x ray personnel, will be resumed when she comes back to floor.
--- NOTE | 2020-02-08 22:21 | PC.NURSE ---
patient was brought back to floor by x ray personnel at 2221. Heart monitoring resumed.
[2020-02-08 23:00] LABS: Troponin I < 0.01 ng/ml (0.00-0.034)
[2020-02-09] VITALS: BP 130/77; PULSE 70; PULSE 75; RESP 18; TEMP 36.4; O2SAT 96
[2020-02-09 04:00] VITALS: BP 114/71; PULSE 68; RESP 16; TEMP 36.5; O2SAT 97
--- NOTE | 2020-02-09 04:00 | PC.NURSE ---
Pt is A&Ox4 and has ambulated to the BR 2x with staff SBA and pt tolerated well. Pt did c/o feeling weak and tired with exertion. Pt slept t/o most of the night. Diminished lungs sound with scattered rhonchi noted bilat. Pt has denied any SOA or dyspnea. Pt c/o epigastric pain and nausea 1x, medicated per MAR with effectiveness noted. Pt refused TEDS. NSR noted on tele. VSS, call light within reach.
[2020-02-09 07:22] VITALS: BP 122/48; PULSE 77; RESP 20; TEMP 36.8; O2SAT 93
[2020-02-09 07:47] LABS: Basophils # 0.1 K/mm3 (0-0.2); Basophils % 0.7 % (0.1-2.0); Eosinophils # 0.4 K/mm3 (0.0-0.4); Hematocrit 39.1 % (37.0-47.0); Lymphocytes # 2.1 K/mm3 (0.7-4.5); Lymphocytes % 24.2 % (10-50); Mean Corpuscular HGB Conc 33.2 g/dL (31.8-35.4); Mean Corpuscular Hemoglobin 30.2 pg (27.0-31.2); Mean Corpuscular Volume 91.1 fl (81-99); Mean Platelet Volume 8.1 fl (7.4-10.4); Monocytes # 0.5 K/mm3 (0.1-1.0); Monocytes % 6.1 % (1.7-9.3); Neutrophils # 5.5 K/mm3 (1.8-7.8); Platelet Count 258 K/mm3 (142-424); Red Blood Count 4.29 M/mm3 (4.20-5.40); Red Cell Distribution Width 13.6 % (11.5-17.5); White Blood Count 8.6 K/mm3 (4.8-10.8)
[2020-02-09 08:00] VITALS: O2SAT 96
[2020-02-09 08:01] LABS: Chloride 108 mmol/L (98-107)
[2020-02-09 08:02] LABS: Sodium 142 mmol/L (136-145)
[2020-02-09 08:04] LABS: Blood Urea Nitrogen 14 mg/dl (7-17); Creatinine Clearance Estimated 73 mL/min (50-200); Estimated Glomerular Filt Rate 83 ml/min (>60); GFR (African American) 101 ML/MIN (>60)
[2020-02-09 08:05] LABS: Calcium 8.6 mg/dl (8.4-10.2); Carbon Dioxide 31 mmol/L (22.0-30.0); Glucose 85 mg/dl (74-100)
--- NOTE | 2020-02-09 08:34 | HMH.ACPN2 ---
Internal Medicine - PN: Subj *Date: 02/09/20 *Time: 08:34 Interval history: Patient states she is feeling better this morning. She has had no further chest pain. She still has some pain in her epigastric area and lower abdomen. She slept off and on throughout the night and wants to go home this morning. Exam Vital signs and Labs for Last 24 Hours: Temp Pulse Resp BP Pulse Ox 98.2 F 77 20 122/48 L 93 L 02/09/20 07:22 02/09/20 07:22 02/09/20 07:22 02/09/20 07:22 02/09/20 07:22 Laboratory Results - last 24 hr 02/08/20 16:25: WBC 8.2, RBC 4.15 L, Hgb 12.8, Hct 36.9 L, MCV 88.7, MCH 30.7, MCHC 34.6, RDW 13.4, Plt Count 282, MPV 8.1, Neut % (Auto) 64.3, Lymph % (Auto) 22.7, Vance % (Auto) 7.4, Eos % (Auto) 4.7, Baso % (Auto) 0.9, Neut # (Auto) 5.3, Lymph # (Auto) 1.8, Vance # (Auto) 0.6, Eos # (Auto) 0.4, Baso # (Auto) 0.1 02/08/20 16:25: Sodium 142, Potassium 3.4 L, Chloride 106, Carbon Dioxide 29, Anion Gap 10.4, BUN 15, Creatinine 0.80, Estimated Creat Clear 73, Estimated GFR 71, Est GFR ( Amer) 86, Glucose 114 H, Calcium 9.1, Troponin I < 0.01 02/08/20 16:25: SARS-CoV-2 IgG Ab (Rapid) Negative, SARS-CoV-2 IgM Ab (Rapid) Negative 02/08/20 18:30: Urine Color Yellow, Urine Appearance Sl cloudy, Urine pH 6.0, Ur Specific [place] 1.020, Urine Protein Negative, Urine Glucose (UA) Negative, Urine Ketones Negative, Urine Blood Negative, Urine Nitrate Negative, Urine Bilirubin Negative, Urine Urobilinogen 1.0, Ur Leukocyte Esterase 1+ A, Urine RBC Occasional, Urine WBC 20-50, Ur Squamous Epith Cells 3-5, Urine Bacteria 1+ 02/08/20 19:02: Troponin I < 0.01 02/08/20 22:30: Troponin I < 0.01 02/09/20 07:35: WBC 8.6, RBC 4.29, Hgb 13.0, Hct 39.1, MCV 91.1, MCH 30.2, MCHC 33.2, RDW 13.6, Plt Count 258, MPV 8.1, Neut % (Auto) 64.0, Lymph % (Auto) 24.2, Vance % (Auto) 6.1, Eos % (Auto) 5.0, Baso % (Auto) 0.7, Neut # (Auto) 5.5, Lymph # (Auto) 2.1, Vance # (Auto) 0.5, Eos # (Auto) 0.4, Baso # (Auto) 0.1 02/09/20 07:35: Sodium 142, Potassium 4.0, Chloride 108 H, Carbon Dioxide 31 H, Anion Gap 7.0, BUN 14, Creatinine 0.70, Estimated Creat Clear 73, Estimated GFR 83, Est GFR ( Amer) 101, Glucose 85 D, Calcium 8.6 I & O for Last 24 hours: Intake & Output 02/06/20 02/07/20 02/08/20 02/09/20 11:59 11:59 11:59 11:59 Weight 189 lb 6 oz Microbiology Reports for the Last 24 Hours: Microbiology 02/08/20 18:30 Urine,Clean Catch Urine Culture - Preliminary Gram Negative Rods - Constitutional no acute distress - *Routine Respiratory Exam Present: wheezes - *Routine Cardiovascular Exam Present: RRR - *Routine Abdominal Exam Present: soft, normoactive bowel sounds, tenderness (epigastric, suprapubic) - *Routine Extremities Exam Absent: cyanosis, clubbing, edema - *Routine Skin Exam Present: warm. Absent: rash - *Routine Neurological Exam Present: alert, oriented X3 Assessment and Plan (1) Atypical chest pain Current visit: No Status: Acute Category: Medical Code(s): R07.89 - Other chest pain (2) Epigastric pain Current visit: Yes Status: Acute Category: Medical Code(s): R10.13 - Epigastric pain (3) Coronary arteriosclerosis Current visit: No Status: Acute Category: Medical Code(s): I25.10 - Atherosclerotic heart disease of [place] coronary artery without angina pectoris (4) Carotid artery disease Current visit: No Status: Acute Category: Medical Code(s): I77.9 - Disorder of arteries and arterioles, unspecified (5) Peripheral vascular disease Current visit: No Status: Acute Category: Medical Code(s): I73.9 - Peripheral vascular disease, unspecified (6) Tobacco abuse Current visit: No Status: Acute Category: Medical Code(s): Z72.0 - Tobacco use (7) Urinary tract infection Current visit: Yes Status: Acute Category: Medical Code(s): N39.0 - Urinary tract infection, site not specified - Assessment and plan a
--- NOTE | 2020-02-09 10:26 | P.CONPHA_ITS ---
[facility] Pharmacy VTE Monitoring - Patient Demographics Admission date: 02/09/20 Report Date: 02/09/20 Time: 10:26 Allergies/Adverse Reactions: Patient Allergies ciprofloxacin [From CIPRO] Allergy (Unknown, Verified 08/22/19 14:43) Height: 1.63 m Weight: 85.899 kg Patient Problems: Current Active Problems Angina pectoris (Acute) Cystitis (Acute) Epigastric pain (Acute) Urinary tract infection (Acute) - VTE Risk Labs: VTE Related Lab Results Hgb 13.0 g/dL (12.2-16.2) 02/09/20 07:35 Hct 39.1 % (37.0-47.0) 02/09/20 07:35 Plt Count 258 K/mm3 (142-424) 02/09/20 07:35 BUN 14 mg/dl (7-17) 02/09/20 07:35 Creatinine 0.70 mg/dl (0.52-1.04) 02/09/20 07:35 Estimated Creat Clear 73 mL/min (50-200) 02/09/20 07:35 VTE Score: 8 VTE Risk Level: Moderate Risk - Prophylaxis Types of VTE Prophylaxis: TEDS Knee High (VANI HOSE ORDERED)
--- NOTE | 2020-02-11 21:27 | HMH.DCSUM ---
General - General Admission date:: 02/08/20 Discharge date: 02/09/20 HPI HPI: This 69-year-old white female with history of coronary artery disease presented in the emergency room with complaints of left chest and epigastric pain. Apparently she has been having this pain for a while off and on. Tonight she cannot seem to be comfortable with it. She has not been short of breath. She has previously had some nausea with the epigastric discomfort. She is smoking about 1/2 pack of cigarettes per day. She has chronic lung disease. She has peripheral vascular disease as well with carotid stenosis. Hospital Course Hospital Course: The patient's chest x-ray showed a patchy infiltrate in the right lung base medially. She had a chest CT showing nothing acute. There was no lobar consolidation or collapse. It was felt the radiographic abnormality might have been due to atelectasis. The patient's chest pain resolved. Her troponins were all normal. She did continue to have some pain in her epigastric area and lower abdomen. Her urine culture was growing gram-negative rods. She was started on Rocephin. Her urine culture returned positive for E. coli which was sensitive to the Rocephin. The patient was stable to be discharged home on cefdinir and will follow-up with Dr. Wadsworth in the office. Objective Vital signs: Temp Pulse Resp BP Pulse Ox 98.2 F 77 20 122/48 L 96 02/09/20 07:22 02/09/20 07:22 02/09/20 07:22 02/09/20 07:22 02/09/20 08:00 Narrative: - Constitutional mild distress (Uncomfortable due to epigastric discomfort) - *Routine HEENT Exam Head: Present: normocephalic Eye: Present: PERRL ENT: Present: mucous membranes moist - *Routine Neck Exam Absent: JVD - *Routine Respiratory Exam Present: decreased breath sounds, rales (Some bibasilar rales. Some rales in the area of the left chest where she has discomfort). Absent: respiratory distress - *Routine Cardiovascular Exam Present: RRR, S4 - *Routine Abdominal Exam Present: soft, tenderness (Epigastrium) - *Routine Extremities Exam Present: edema (Trace) - *Routine Neurological Exam Present: alert, oriented X3 DS: Diagnosis - Discharge Diagnosis (1) Atypical chest pain Status: Acute (2) Epigastric pain Status: Acute (3) Coronary arteriosclerosis Status: Acute (4) Carotid artery disease Status: Acute (5) Peripheral vascular disease Status: Acute (6) Tobacco abuse Status: Acute (7) Urinary tract infection Status: Acute (8) E coli infection Status: Acute Discharge Plan - Patient Discharge Instructions ACTIVITY: Continue current activity DIET: advance to your usual diet Patient Instructions: Coronary Bypass Surgery Increases [place]iley From Angina More Than Angioplasty, Angina (Alternative Therapy), DI for Chronic Pain -- Adult - Follow up Plan Follow up with: Haris Wadsworth MD [Primary Care Provider] - 02/13/20 11:30 am Disposition: Home, Self-Prison Medications: Home Medications Medication Instructions Recorded Confirmed Type aspirin 81 mg tablet,delayed 81 mg PO DAILY 07/27/17 02/08/20 History release clopidogrel 75 mg tablet 75 mg PO DAILY 07/27/17 02/08/20 History pantoprazole 40 mg tablet,delayed 40 mg PO DAILY 07/27/17 02/08/20 History release simvastatin 40 mg tablet 40 mg PO HS 07/27/17 02/08/20 History acetaminophen 325 mg capsule 325 mg PO QID PRN 08/22/19 02/08/20 History Metoprolol Succinate [Metoprolol 25 mg PO DAILY 12/29/19 02/08/20 History Succinate 25mg Tablet*] Ubidecarenone [Coenzyme Q10] 30 mg PO DAILY 12/29/19 02/08/20 History Cefdinir [Omnicef 300mg Capsule] 300 mg PO BID #14 cap 02/09/20 Rx Prescriptions/Medication Reconciliation: New Cefdinir [Omnicef 300mg Capsule] 300 mg PO BID #14 cap Continued clopidogrel 75 mg tablet 75 mg PO DAILY simvastatin 40 mg tablet 40 mg PO HS acetaminophen 325 mg capsul
== END 2020-02-09 10:15 | disposition home or self-care (01) ==
LOC: ER 19:24 → 2ND 20:12
PROVIDERS: Admitting Provider Family Medicine; Emergency Provider Emergency Medicine; PCP Family Medicine; Visit Provider Family Medicine
DX: R07.9 Chest pain, unspecified (principal); R10.13 Epigastric pain; I25.10 Atherosclerotic heart disease of native coronary artery without angina pectoris; I25.2 Old myocardial infarction; Z95.5 Presence of coronary angioplasty implant and graft; I10 Essential (primary) hypertension; J44.9 Chronic obstructive pulmonary disease, unspecified; N39.0 Urinary tract infection, site not specified; I70.203 Unspecified atherosclerosis of native arteries of extremities, bilateral legs; Z79.82 Long term (current) use of aspirin; Z79.899 Other long term (current) drug therapy; Z88.1 Allergy status to other antibiotic agents; Z72.0 Tobacco use
CPT/HCPCS: 36415; 71045; 71250; 80048; 81001; 84484; 85025; 86328; 87086; 87088; 87186; 93005; 96374; 96375; 99285; G0378; J2405

== ENCOUNTER → 2020-04-22 15:08 | Outpatient (POV) | payer MEDICARE, SELFPAY | PROVIDERS: Visit Provider Dermatology | DX: Z00.00 Encounter for general adult medical examination without abnormal findings (principal) ==

== ENCOUNTER → 2021-10-27 09:36 | Outpatient (CLI) | payer MEDICARE, SELFPAY ==
--- NOTE | 2021-10-27 09:40 | MM_ITS ---
PROCEDURE INFORMATION: Exam: MG Bilateral Screening 3D Mammography Exam date and time: 10/27/2021 9:49 AM Age: 70 years old Clinical indication: Screening examination. Her maternal aunt had breast cancer. TECHNIQUE: Imaging protocol: Bilateral Screening tomosynthesis and 2D mammography including computer-aided detection (CAD) when performed. COMPARISON: 1. MG MM DIG SCREENING MAMM BI W/CAD 11/30/2019 8:20 AM 2. MG SCBI MM Dig screening mamm BI w/CAD 08/04/2018 10:52 AM 3. MG DMSB DIG MAMM-SCREEN JORGE W/CAD 01/20/2017 9:42 AM 4. MG MOBILE DIGITAL SCREEN BILAT* 07/06/2012 11:31 AM FINDINGS: MAMMOGRAPHY: Breast composition: The breasts are almost entirely fatty. Mass: Two possible 0.5 cm masses in the left upper outer quadrant, middle 3rd, better seen in the CC view, image 1372, frame 27 and 53, and MLO view, image 1718, frame 21. Architectural distortion: None. Calcifications: No suspicious calcifications. Asymmetric density: None. Skin thickening: None. Axillary adenopathy: None. IMPRESSION: Patient to be recalled for left diagnostic spot compression in CC and MLO as well as left breast ultrasound for further evaluation of possible left breast masses. ASSESSMENT: BI-RADS Category 0: Incomplete- Need Additional Imaging Evaluation and/or Prior Mammograms for Comparison
--- NOTE | 2021-10-27 09:41 | XR_ITS ---
FINAL REPORT TECHNIQUE: Bone mineral density was calculated of the lumbar spine and hip. CLINICAL HISTORY: post menopausal COMPARISON: November 30, 2019 FINDINGS: DEXA BONE DENSITY AXIAL SKELETON Using L1-4, the bone mineral density of the spine is 1.006 g/cm2, corresponding to T-score of -0.4. Previously was 0.980 g/cm2 with a T-score of -0.6. These values may be falsely elevated secondary to hypertrophic change. Using the left hip, the bone mineral density of the femoral neck is 0.712 g/cm2, corresponding to a T-score of -1.9. Previously was 0.751 with a T-score of -1.6 NOTE: T-score: Standard deviation compared with peak bone mass of young adult mean. *Following the recommendations of the International Society of Bone densitometry, classification of hip BMD is based on the lower of two T-scores; total hip or femoral neck. IMPRESSION: Diminished bone mineral density of the lumbar spine and left hip consistent with osteopenia. FRAX 10 year fracture risk is 15 % for major osteoporotic fracture. Reviewed, Interpreted and Dictated by Fady Real III, MD Transcribed by Lyn Simental Authenticated by Fady Real III, MD on 10/27/2021 01:21:28 PM [facility]
== END ==
PROVIDERS: PCP Family Medicine; Visit Provider Nurse Practitioner Family
DX: Z12.31 Encounter for screening mammogram for malignant neoplasm of breast (principal); M85.89 Other specified disorders of bone density and structure, multiple sites
CPT/HCPCS: 77063; 77067; 77080

== ENCOUNTER → 2021-11-13 14:27 | Outpatient (CLI) | payer MEDICARE, SELFPAY ==
--- NOTE | 2021-11-13 14:31 | CT_ITS ---
FINAL REPORT CLINICAL HISTORY: H/O NICOTINE DEPENDENCE, CURRENT SMOKER AND HAS SMOKER FOR 50 YEARS, 3/4 PACK PER DAY COMPARISON: February 08, 2020 and August 04, 2018 FINDINGS: Low-Dose Chest CT CTDI vol (mGy): 2.90 DLP (mGy-cm): 101.07 Axial images were obtained from the lung apex to the mid abdomen by computed tomography. Low-dose protocol was utilized. FINDINGS: CHEST: There is no axillary lymphadenopathy. There is no hilar or mediastinal lymphadenopathy. The heart is proper size. There is a vascular stent in the left subclavian artery. There are prominent coronary artery calcifications. There is no pericardial or pleural effusion. Limited images of the upper abdomen are unremarkable. Lung window images demonstrate a 10 mm pleural based right lower lobe nodule that is been stable since 2019. Presumed benign giving stability for greater than 2 years. No new nodules identified. IMPRESSION: Stable right lower lobe nodule. Modifier S: Prominent vascular disease. Lung RADS category 2. Recommend 12 month follow-up low-dose chest CT. Reviewed, Interpreted and Dictated by Veronica Capone MD Transcribed by Lyn Simental Authenticated by Veronica Capone MD on 11/13/2021 04:58:[address] [facility]
--- NOTE | 2021-11-13 14:32 | MM_ITS ---
PROCEDURE INFORMATION: Exam: US Left Breast, Complete MG Left Diagnostic Breast Tomosynthesis Exam date and time: 11/13/2021 2:38 PM Age: 70 years old Clinical indication: Recall on the basis of screening mammogram 10/27/2021 for two possible 0.5 cm masses in the left upper outer quadrant. TECHNIQUE: Imaging protocol: Complete ultrasound of all four quadrants of the Left breast and the retroareolar regions, including ultrasound of the axilla when performed. Left Diagnostic tomosynthesis and 2D mammography including computer-aided detection (CAD) when performed. Unilateral or bilateral exam. COMPARISON: 1. MG MM DIG SCREENING MAMM BI W/CAD 10/27/2021 9:49 AM 2. MG MM DIG SCREENING MAMM BI W/CAD 11/30/2019 8:20 AM 3. MG SCBI MM Dig screening mamm BI w/CAD 08/04/2018 10:52 AM 4. MG DMSB DIG MAMM-SCREEN JORGE W/CAD 01/20/2017 9:42 AM FINDINGS: MAMMOGRAPHY: 2D spot compression shows less prominent 0.5 cm oval masses in the left upper outer quadrant, middle 3rd. ULTRASOUND: Left sonography, all 4 quadrants, retroareolar and axilla demonstrates at 12 o'clock 7 cm from the nipple a probable 0.3 cm cyst, which likely corresponds with one of the mammographic findings. No suspicious cystic or solid mass demonstrated. Sonographically unremarkable left axillary lymph node. IMPRESSION: Probably benign cystic change, suggest six-month follow-up left diagnostic mammogram and targeted left breast ultrasound, unless otherwise clinically indicated. ASSESSMENT: BI-RADS Category 3: Probably benign
== END ==
PROVIDERS: PCP Family Medicine; Visit Provider Physician Assistant
DX: R92.8 Other abnormal and inconclusive findings on diagnostic imaging of breast (principal); Z87.891 Personal history of nicotine dependence; Z12.2 Encounter for screening for malignant neoplasm of respiratory organs
CPT/HCPCS: 71271; 76641; 77061; 77065; G0279

== ENCOUNTER → 2022-02-12 10:24 | Outpatient (CLI) | payer MEDICARE, SELFPAY ==
--- NOTE | 2022-02-12 10:25 | CA_ITS ---
FINAL REPORT TECHNIQUE: Color Doppler, duplex Doppler and brush scale sonography of the bilateral neck arterial vasculature was performed. Velocities were measured in the carotid arteries. Stenosis evaluation based on the validated velocity criteria. CLINICAL HISTORY: WOODROW,STENT RT CAROTID,SMOKER FINDINGS: The peak systolic velocity of the right common carotid artery is 86 cm/s. The peak systolic velocity of the right internal carotid artery is 135 cm/s and end diastolic velocity 39 cm/s. The ICA/CCA ratio is 1.58. An arterial stent is seen in the right carotid artery. The right external carotid artery is patent. The right vertebral artery is patent with antegrade flow. The peak systolic velocity of the left common carotid artery is 111 cm/s. The peak systolic velocity of the left internal carotid artery is 134 cm/s and end diastolic velocity 43 cm/s. The ICA/CCA ratio is 1.2. A moderate amount of plaque is present. The left external carotid artery is patent.The left vertebral artery is patent with antegrade flow. IMPRESSION: Less than 50% bilateral carotid stenosis. Bilateral patent vertebral arteries with antegrade flow. If indicated, CTA or MRA could further evaluate. Reviewed, Interpreted and Dictated by Gerard Infante MD Transcribed by Lyn Simental Authenticated and . [facility]
== END ==
LOC: RT 10:25
PROVIDERS: PCP Family Medicine; Visit Provider Nurse Practitioner Family
DX: I25.10 Atherosclerotic heart disease of native coronary artery without angina pectoris; I65.23 Occlusion and stenosis of bilateral carotid arteries; I77.1 Stricture of artery; R06.00 Dyspnea, unspecified; Z86.79 Personal history of other diseases of the circulatory system; Z95.828 Presence of other vascular implants and grafts; Z98.890 Other specified postprocedural states
CPT/HCPCS: 93880

== ENCOUNTER → 2022-07-13 14:44 | Outpatient (CLI) | payer MEDICARE, SELFPAY ==
--- NOTE | 2022-07-13 14:47 | MM_ITS ---
PROCEDURE INFORMATION: Exam: MG Left Diagnostic Breast Tomosynthesis Exam date and time: 07/13/2022 2:44 PM Age: 71 years old Clinical indication: Short-term radiographic followup; Left breast; masses TECHNIQUE: Imaging protocol: Left Diagnostic tomosynthesis and 2D mammography including computer-aided detection (CAD) when performed. Unilateral or bilateral exam. COMPARISON: 1. MG MM DIG MAMM DX UNILAT LT CAD 11/13/2021 2:38 PM 2. MG MM DIG SCREENING MAMM BI W/CAD 10/27/2021 9:49 AM FINDINGS: MAMMOGRAPHY: The breast tissue is almost entirely fatty. There is no stellate mass, architectural distortion or suspicious microcalcifications to suggest malignancy. No focal mass lesion on routine or spot compression views. No skin thickening or axillary adenopathy. IMPRESSION: Patient to return for targeted left breast ultrasound for follow-up evaluation of probable cystic change. ASSESSMENT: BI-RADS Category 0: Incomplete- Need Additional Imaging Evaluation and/or Prior Mammograms for Comparison
== END ==
PROVIDERS: PCP Family Medicine; Visit Provider Nurse Practitioner Family
DX: R92.8 Other abnormal and inconclusive findings on diagnostic imaging of breast (principal)
CPT/HCPCS: 77061; 77065; G0279

== ENCOUNTER → 2022-07-26 10:51 | Outpatient (CLI) | payer MEDICARE, SELFPAY ==
--- NOTE | 2022-07-26 10:53 | US_ITS ---
PROCEDURE INFORMATION: Exam: US Left Breast, Complete Exam date and time: 07/26/2022 11:08 AM Age: 71 years old Clinical indication: Six-month follow-up for probably benign cystic change in the left breast at 12 o'clock from 11/13/2021. TECHNIQUE: Imaging protocol: Complete ultrasound of all four quadrants of the Left breast and the retroareolar regions, including ultrasound of the axilla when performed. COMPARISON: US BREAST LT COMPLETE 11/13/2021 3:22 PM FINDINGS: Breast: Left sonography, all 4 quadrants, retroareolar and axilla. At 12 o'clock 7 cm from the nipple, slightly smaller cyst measuring 0.2 x 0.2 x 0.3 cm which measured 0.3 x 0.3 x 0.3 cm cm on 11/13/2021. Additional similar small cystic findings are demonstrated at 12 o'clock 4 cm from the nipple measuring 0.2 x 0.2 by 0.2 cm, and at 1 o'clock 7 cm from the nipple measuring 0.2 x 0.2 x 0.3 cm. Sonographically unremarkable left axillary lymph node. IMPRESSION: Scattered tiny cystic changes. No sonographic evidence of malignancy. Annual mammographic screening is due October 2022, unless otherwise clinically indicated. ASSESSMENT: BI-RADS Category 2: Benign
== END ==
LOC: RAD 10:52
PROVIDERS: PCP Family Medicine; Visit Provider Nurse Practitioner Family
DX: R92.8 Other abnormal and inconclusive findings on diagnostic imaging of breast (principal)
CPT/HCPCS: 76641

== ENCOUNTER → 2022-09-01 14:42 | Outpatient (CLI) | payer MEDICARE, SELFPAY ==
[2022-09-01 16:18] LABS: Alanine Aminotransferase 15 U/L (12-78); Alkaline Phosphatase 82 U/L (38-126); Anion Gap 9.1 mEq/L (5-15); Aspartate Amino Transferase 21 U/L (14-36); Bilirubin,Direct 0.3 mg/dl (0.0-0.4); Bilirubin,Indirect 0.3 mg/dL (0.0-0.9); Bilirubin,Total 0.6 mg/dl (0.2-1.3); Bilirubin,Unconjugated 0.3 mg/dL (0.0-1.1); Blood Urea Nitrogen 14 mg/dl (7-17); Calcium 8.6 mg/dl (8.4-10.2); Carbon Dioxide 29 mmol/L (22.0-30.0); Chloride 103 mmol/L (98-107); Chol/HDL Ratio 3.2 (1-3.5); Cholesterol 161 mg/dl (140-200); Estimated Glomerular Filt Rate 99 ml/min (>60); GFR (African American) 120 ML/MIN (>60); Glucose 77 mg/dl (74-100); HDL Cholesterol 51 mg/dl (40-60); Magnesium 1.9 mg/dl (1.6-2.3); Potassium 4.1 mmoL/L (3.5-5.1); Sodium 137 mmol/L (136-145); Total Protein,Serum 6.6 g/dl (6.3-8.2); Triglycerides 82 mg/dl (30-150); VLDL Cholesterol 16 mg/dL (0-40)
[2022-09-01 16:34] LABS: Free T4 (Free Thyroxine) 1.34 ng/dl (0.78-2.19)
[2022-09-01 16:48] LABS: Thyroid Stimulating Hormone 1.21 uIU/mL (0.465-4.68)
[2022-09-01 16:53] LABS: Basophils # 0.1 K/mm3 (0-0.2); Basophils % 1.1 % (0.1-2.0); Eosinophils # 0.3 K/mm3 (0.0-0.4); Eosinophils % 3.7 % (0.1-12.0); Hematocrit 41.2 % (37.0-47.0); Lymphocytes # 1.7 K/mm3 (0.7-4.5); Lymphocytes % 22.6 % (10-50); Mean Corpuscular HGB Conc 31.6 g/dL (31.8-35.4); Mean Corpuscular Hemoglobin 29.5 pg (27.0-31.2); Mean Corpuscular Volume 93.4 fl (81-99); Mean Platelet Volume 8.8 fl (7.4-10.4); Monocytes # 0.5 K/mm3 (0.1-1.0); Monocytes % 6.5 % (1.7-9.3); Neutrophils # 4.8 K/mm3 (1.8-7.8); Platelet Count 297 K/mm3 (142-424); Red Blood Count 4.41 M/mm3 (4.20-5.40); Red Cell Distribution Width 13.3 % (11.5-17.5); White Blood Count 7.3 K/mm3 (4.8-10.8)
== END ==
PROVIDERS: PCP Family Medicine; Visit Provider Nurse Practitioner
DX: E78.2 Mixed hyperlipidemia (principal); F17.200 Nicotine dependence, unspecified, uncomplicated; I10 Essential (primary) hypertension; I65.29 Occlusion and stenosis of unspecified carotid artery; I73.9 Peripheral vascular disease, unspecified; I77.1 Stricture of artery; Z95.828 Presence of other vascular implants and grafts; Z98.890 Other specified postprocedural states; I20.8 Other forms of angina pectoris
CPT/HCPCS: 36415; 80048; 80061; 80076; 83735; 84439; 84443; 85025

== ENCOUNTER → 2022-10-12 08:01 | Outpatient (CLI) | payer MEDICARE, SELFPAY | LOC: RAD 08:01 | PROVIDERS: PCP Family Medicine; Visit Provider Nurse Practitioner | DX: E78.2 Mixed hyperlipidemia (principal); F17.200 Nicotine dependence, unspecified, uncomplicated; I10 Essential (primary) hypertension; I65.29 Occlusion and stenosis of unspecified carotid artery; I73.9 Peripheral vascular disease, unspecified; I77.1 Stricture of artery; Z95.828 Presence of other vascular implants and grafts; Z98.890 Other specified postprocedural states; I20.8 Other forms of angina pectoris | CPT/HCPCS: 78452; 93017; 93306; A9502; J0280; J2785 ==

== ENCOUNTER → 2022-10-21 09:51 | Outpatient (CLI) | payer MEDICARE, SELFPAY ==
--- NOTE | 2022-10-21 09:54 | CA_ITS ---
FINAL REPORT TECHNIQUE: Color Doppler, duplex Doppler and brush scale sonography of the bilateral neck arterial vasculature was performed. Velocities were measured in the carotid arteries. Stenosis evaluation based on the validated velocity criteria. CLINICAL HISTORY: WOODROW,RT CARTOID STENT,SMOKER,DIZZINESS FINDINGS: The peak systolic velocity of the right common carotid artery is 70 cm/s. The peak systolic velocity of the right internal carotid artery is 118 cm/s and end diastolic velocity 29 cm/s. The ICA/CCA ratio is 1.8. A small amount of plaque is present. The right external carotid artery is patent. The right vertebral artery is patent with antegrade flow. The peak systolic velocity of the left common carotid artery is 91 cm/s. The peak systolic velocity of the left internal carotid artery is 121 cm/s and end diastolic velocity 29 cm/s. The ICA/CCA ratio is 1.3. A small amount of plaque is present. The left external carotid artery is patent.The left vertebral artery is patent with antegrade flow. IMPRESSION: Less than 50% bilateral carotid stenoses. Bilateral patent vertebral arteries with antegrade flow. If indicated, CTA or MRA could further evaluate. Reviewed, Interpreted and Dictated by Gerard Infante MD Transcribed by Dee Mejia Authenticated and [facility]
== END ==
PROVIDERS: PCP Family Medicine; Visit Provider Nurse Practitioner
DX: E78.2 Mixed hyperlipidemia (principal); F17.200 Nicotine dependence, unspecified, uncomplicated; I10 Essential (primary) hypertension; I65.23 Occlusion and stenosis of bilateral carotid arteries; I73.9 Peripheral vascular disease, unspecified; I77.1 Stricture of artery; Z95.828 Presence of other vascular implants and grafts; Z98.890 Other specified postprocedural states; I20.8 Other forms of angina pectoris
CPT/HCPCS: 93880

== ENCOUNTER → 2022-12-31 11:27 | Outpatient (CLI) | payer MEDICARE, SELFPAY ==
--- NOTE | 2022-12-31 11:36 | XR_ITS ---
FINAL REPORT CLINICAL HISTORY: BRONCHITIS COMPARISON: 02/08/2020 FINDINGS: Two views of the chest were obtained. The heart size and pulmonary vascularity are within normal limits. The mediastinum is normal. No acute pulmonary abnormality is identified. There is no pneumothorax. The bony thorax is intact. IMPRESSION: No active cardiopulmonary disease. Reviewed, Interpreted and Dictated by Fady Real III, MD Transcribed by Pepper Prajapati Authenticated and [facility]
== END ==
LOC: RAD 11:27
PROVIDERS: PCP Family Medicine; Visit Provider Physician Assistant
DX: J40 Bronchitis, not specified as acute or chronic (principal)
CPT/HCPCS: 71046

== ENCOUNTER → 2023-02-04 15:34 | Outpatient (CLI) | payer MEDICARE, SELFPAY ==
--- NOTE | 2023-02-04 15:38 | XR_ITS ---
FINAL REPORT CLINICAL HISTORY: LEFT LOWER QUADRANT PAIN COMPARISON: Chest 12/31/2022 FINDINGS: Chest: The heart and mediastinal within normal limits. The lungs are clear. There is no pneumothorax. Osseous structures are unremarkable. Abdomen: AP and upright views of the abdomen were obtained. There is a nonspecific bowel gas pattern. There is a moderate to large stool burden. There is no free air. No abnormal calcifications are identified. There are degenerative changes in the thoracolumbar spine. Dextroscoliosis is noted. IMPRESSION: No acute cardiopulmonary process. Nonobstructive bowel gas pattern with a moderate to large stool burden. Reviewed, Interpreted and Dictated by Fady Real III, MD Transcribed by Pepper Prajapati Authenticated and [facility]
== END ==
LOC: RAD 15:35
PROVIDERS: PCP Family Medicine; Visit Provider Physician Assistant
DX: R10.32 Left lower quadrant pain (principal)
CPT/HCPCS: 74021

== ENCOUNTER → 2023-06-03 14:01 | Outpatient (CLI) | payer MEDICARE, SELFPAY ==
--- NOTE | 2023-06-03 14:04 | MM_ITS ---
PROCEDURE INFORMATION: Exam: MG Bilateral Screening 3D Mammography Exam date and time: 06/03/2023 1:59 PM Age: 72 years old Clinical indication: Screening mammogram TECHNIQUE: Imaging protocol: Bilateral Screening tomosynthesis and 2D mammography including computer-aided detection (CAD) when performed. COMPARISON: 1. MG MM DIG MAMM DX UNILAT LT CAD 07/13/2022 2:44 PM 2. MG MM DIG MAMM DX UNILAT LT CAD 11/13/2021 2:38 PM 3. MG MM DIG SCREENING MAMM BI W/CAD 10/27/2021 9:49 AM 4. MG MM DIG SCREENING MAMM BI W/CAD 11/30/2019 8:20 AM FINDINGS: MAMMOGRAPHY: Breast composition: There are scattered areas of fibroglandular density. Mass: None. Architectural distortion: No new or suspicious architectural distortion. Calcifications: No new or suspicious calcifications are present Asymmetric density: No new or suspicious asymmetric density is present Skin thickening: None. Axillary adenopathy: None. IMPRESSION: No mammographic evidence of malignancy. Recommend annual screening mammography unless otherwise clinically indicated. ASSESSMENT: BI-RADS category 1: Negative
--- NOTE | 2023-06-03 14:11 | CT_ITS ---
FINAL REPORT TECHNIQUE: Axial CT images of the chest were obtained without contrast. Low-dose protocol was utilized. This study was performed with techniques to keep radiation doses as low as reasonably achievable (ALARA). Individualized dose reduction techniques using automated exposure control or adjustment of mA and/or kV according to the patient's size were employed. CLINICAL HISTORY: H/O TOBACCO USE current smoker 1 ppd x 25 years COMPARISON: 11/13/2021 FINDINGS: CT CHEST WITHOUT, LOW DOSE SCREENING CT Di Vol: 2.90 mGy DLP: 105.25 mGy*cm Left subclavian artery stent is stable. There is no axillary, mediastinal, or hilar adenopathy. The heart size is normal. There are moderate coronary artery calcifications. There is no pleural or pericardial effusion. The lung windows show there is a pleural-based density in the periphery of the right lower lobe measuring proximally 9 mm in greatest dimension, stable. Limited images of the upper abdomen demonstrate no acute findings. Incidental note is made of ectasia of the abdominal aorta measuring up to 3.2 cm. IMPRESSION: Stable pleural-based density. LR Category 2S: 12 month follow-up low-dose chest CT is recommended. Modifier S: Moderate coronary artery calcifications. Reviewed, Interpreted and Dictated by Gerard Infante MD Transcribed by Pepper Prajapati Authenticated and [facility]
== END ==
PROVIDERS: PCP Family Medicine; Visit Provider Nurse Practitioner Family
DX: R92.8 Other abnormal and inconclusive findings on diagnostic imaging of breast; Z12.31 Encounter for screening mammogram for malignant neoplasm of breast; Z87.891 Personal history of nicotine dependence; Z12.2 Encounter for screening for malignant neoplasm of respiratory organs
CPT/HCPCS: 71271; 77063; 77067

== ENCOUNTER 2023-06-05 08:39 | Emergency (ER) | payer MEDICARE, SELFPAY ==
[2023-06-05] VITALS (7 sets, daily range): BP systolic 120–152; BP diastolic 59–70; PULSE 70–84; RESP 16–20; TEMP 36.6; O2SAT 97–100; BMI 26.5
--- NOTE | 2023-06-05 08:53 | PC.NURSE ---
dr hutchison at bedside
[2023-06-05 08:57] LABS: Microscopic, Urine URINE MICROSCOPIC (MICROSCOPIC)
[2023-06-05 08:59] LABS: Appearance,Urine CLOUDY (Clear); Blood, Urine 3+ (Negative); Color,Urine ORANGE (Yellow); Glucose,Urine (UA) Negative (Negative); Ketones,Urine Negative (Negative); Leukocyte Esterase,Urine 1+ (Negative); Nitrate,Urine Negative (Negative); PH,Urine 6.5 (5.0-8.5); Protein,Urine TRACE (Negative); Urobilinogen,Urine 0.2 EU/dl (0.2)
--- NOTE | 2023-06-05 08:59 | CT_ITS ---
PROCEDURE INFORMATION: Exam: CT Abdomen And Pelvis Without Contrast Exam date and time: 06/05/2023 9:12 AM Age: 72 years old Clinical indication: Other: Hematuria; Abdominal pain; Flank; Left lower quadrant (llq); Additional info: L flank/llq pain, hematuria TECHNIQUE: Imaging protocol: Computed tomography of the abdomen and pelvis without contrast. Radiation optimization: All CT scans at this facility use at least one of these dose optimization techniques: automated exposure control; mA and/or kV adjustment per patient size (includes targeted exams where dose is matched to clinical indication); or iterative reconstruction. REPORTING DATA: Count of CT and Cardiac NM exams in prior 12 months: This patient has received 2 known CTs and 0 known cardiac nuclear medicine studies in the 12 months prior to the current study. COMPARISON: CT ABDOMEN PELVIS W CON 12/28/2019 10:55 PM FINDINGS: Lungs: No consolidation, lung nodules, or pleural effusions. Liver: No mass. No evidence of fat deposition. No surrounding fluid. Gallbladder and bile ducts: No calcified stones or wall thickening. No ductal dilation. Pancreas: No masses. No ductal dilation. Spleen: Spleen has calcified granulomas and no mass or surrounding fluid. Adrenal glands: No mass. 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 No calcified stones, hydroureteronephrosis, or solid masses. Stomach and bowel: Diverticula are present in the sigmoid colon without evidence of diverticulitis. Appendix: Appendix is not visualized with certainty. No evidence of appendicitis. Intraperitoneal space: No free air. No masses or significant fluid collection. Vasculature: Infrarenal aortic aneurysm measures 3.5 cm compared to 3 cm on 12/28/2019.No intestinal masses, bowel wall thickening, or abnormal luminal dilatation. Lymph nodes: No enlarged lymph nodes. Urinary bladder: Punctate gas bubble in the bladder and possibly mild wall thickening anteriorly. Bladder volume is small. Reproductive: Uterus is surgically absent. No adnexal masses.. No adnexal masses. Bones/joints: No acute fracture or bone lesions. Soft tissues: No masses or other abnormalities. IMPRESSION: 1. Suspected wall thickening in the urinary bladder and a punctate intraluminal gas bubble suggests cystitis. Consider cystoscopy. 2. No other tract abnormalities or interval changes. 3. Diverticulosis in the sigmoid colon without evidence of diverticulitis. 4. Infrarenal abdominal aortic aneurysm measures 3.5 cm compared to 3 cm on 12/28/2019.
--- NOTE | 2023-06-05 09:01 | HMH.EDGENADL ---
Discharge Plan Disposition Patient Disposition: Home, Self-Care Condition: Good Prescriptions Prescriptions: New sulfamethoxazole-trimethoprim [Bactrim DS] 800-160 mg tablet 1 tab PO BID 10 Days Qty: 20 0RF No Action acetaminophen [Tylenol] 325 mg capsule 325 mg PO QID PRN (Reason: pain ) Caltrate 600-D Plus Minerals 600 mg calcium- 800 unit-50 mg tablet 1 tab PO DAILY amlodipine [Norvasc] 5 mg tablet 5 mg PO DAILY Qty: 30 2RF aspirin [Adult Low Dose Aspirin] 81 mg tablet,delayed release (DR/EC) 81 mg PO DAILY pantoprazole 40 mg tablet,delayed release (DR/EC) 40 mg PO DAILY clopidogrel [Plavix] 75 mg tablet 75 mg PO DAILY simvastatin 40 mg tablet 40 mg PO HS metoprolol succinate 25 MG tablet extended release 24 hr 25 mg PO DAILY Patient Comments: MD has changed pt's does titrating up/down from daily to BID and back to daily coenzyme Q10 100 MG capsule 30 mg PO DAILY Referrals Follow up/Referrals: Haris Wadsworth MD [Primary Care Provider] - See instructions Thai Ozuna MD [Staff Physician] - See instructions Activity Restrictions/Add. Instructions Additional Instructions/Restrictions: You were evaluated in the emergency department today. At this time, your workup is concerning for possible urinary tract infection. A urine culture is pending. We are putting you on an antibiotic called Bactrim. Please picking tech this antibiotic and complete the full course as prescribed. It is important that you follow-up with your primary care provider as well as your urologist for further evaluation and management of your hematuria. If it persists, they may want to do further testing to evaluate for other causes of hematuria. Return to the emergency department for new or worsening symptoms, such as significant increase in pain, inability to urinate, intractable nausea and vomiting, lightheadedness, or other concerns. Clinical Impressions Clinical Impression: Hematuria, Cystitis Instructions Patient Instructions: DI for Urinary Tract Infection (UTI), DI for Acute Cystitis, DI for Hematuria Discharge ED Provider: Barbara Cesar General Adult HPI General Chief complaint: Urogenital-Female Stated complaint: blood in urine, abdominal pain Time Seen by Provider: 06/05/23 08:45 Mode of Arrival: Ambulatory Source of Information: Patient Limitations: No Limitations Description of Symptoms (Recalled from ER Triage Doc. by RN): Patient reports blood in urine and a little bit of a stomach ache since last night. States that she just got finished with an antibiotic for a UTI. History of Present Illness HPI narrative: This patient is a 72-year-old female with a history of CAD status post stenting on aspirin and Plavix, subclavian stenosis, carotid stenosis, peripheral vascular disease, hypertension, hyperlipidemia, COPD, extensive smoking history, GERD, and prior history of hysterectomy presented to the emergency department for evaluation with concern for hematuria. Patient reports that since last night, she has had significant amounts of bright red blood in her urine as well as clots. She notes she is having some left-sided lower abdominal pain as well as low back pain associated with this. She denies any fevers, chills, nausea, vomiting, changes bowel movements, or other concerns. She notes she had a urinary tract infection 3 weeks ago, for which she completed the antibiotics and had a repeat urinalysis afterward that was clear. No other concerns noted at this time. Related Data Home Medications Medication Instructions Recorded Confirmed aspirin 81 mg tablet,delayed 81 mg PO DAILY HEART HEALTH 07/27/17 10/18/22 release (Adult Low Dose Aspirin) clopidogrel 75 mg tablet (Plavix) 75 mg PO DAILY antiplatelet 07/27/17 10/18/22 pantoprazole 40 mg tablet,delayed 40 mg PO DAILY GERD 07/27/17 10/18/22 release simvastatin 40 mg tablet 40 mg PO HS Cholesterol 07/27/17 05
[2023-06-05 09:06] LABS: Bilirubin,Urine 1+ (Negative)
--- NOTE | 2023-06-05 09:07 | PC.NURSE ---
PT TO CT
[2023-06-05 09:10] LABS: RBC,Urine TNTC #/hpf (0-3)
[2023-06-05 09:11] LABS: Bacteria,Urine Trace /lpf
--- NOTE | 2023-06-05 09:17 | PC.NURSE ---
Pt returned from RAD
[2023-06-05 09:20] LABS: Chloride 103 mmol/L (98-107); Potassium 3.8 mmoL/L (3.5-5.1); Sodium 138 mmol/L (136-145)
[2023-06-05 09:23] LABS: Anion Gap 11.8 mEq/L (5-15); Blood Urea Nitrogen 13 mg/dl (7-17); Calcium 8.8 mg/dl (8.4-10.2); Carbon Dioxide 27 mmol/L (22.0-30.0); Creatinine Clearance Estimated 55 mL/min (50-200); Estimated Glomerular Filt Rate 99 ml/min (>60); GFR (African American) 119 ML/MIN (>60); Glucose 92 mg/dl (74-100)
[2023-06-05 09:24] LABS: Basophils # 0.1 K/mm3 (0-0.2); Basophils % 0.6 % (0.1-2.0); Eosinophils # 0.3 K/mm3 (0.0-0.4); Eosinophils % 3.4 % (0.1-12.0); Hematocrit 43.1 % (37.0-47.0); Hemoglobin 14.2 g/dL (12.2-16.2); Lymphocytes # 1.7 K/mm3 (0.7-4.5); Lymphocytes % 17.8 % (10-50); Mean Corpuscular Hemoglobin 30.5 pg (27.0-31.2); Mean Corpuscular Volume 92.3 fl (81-99); Mean Platelet Volume 8.4 fl (7.4-10.4); Monocytes # 0.6 K/mm3 (0.1-1.0); Monocytes % 6.6 % (1.7-9.3); Neutrophils # 6.6 K/mm3 (1.8-7.8); Neutrophils % 71.7 % (37.0-80.0); Platelet Count 242 K/mm3 (142-424); Red Blood Count 4.67 M/mm3 (4.20-5.40); White Blood Count 9.3 K/mm3 (4.8-10.8)
[2023-06-05 09:32] LABS: Activated Partial Thrombo Time 27.6 seconds (22.8-30.6); INR 0.92 (0.9-1.1)
--- NOTE | 2023-06-05 10:21 | PC.NURSE ---
Dr. Cesar at BS to update pt/visitor on results and POC
--- NOTE | 2023-06-08 10:10 | PC.NURSE ---
prelim urine culture results e.coli, dc on bactrim DS, No further action needed at this time per
== END 2023-06-05 11:00 | disposition home or self-care (01) ==
PROVIDERS: Emergency Provider Emergency Medicine; PCP Family Medicine
DX: N30.01 Acute cystitis with hematuria (principal); R10.32 Left lower quadrant pain; I25.118 Atherosclerotic heart disease of native coronary artery with other forms of angina pectoris; I10 Essential (primary) hypertension; E78.5 Hyperlipidemia, unspecified; J44.9 Chronic obstructive pulmonary disease, unspecified; I65.23 Occlusion and stenosis of bilateral carotid arteries; I73.9 Peripheral vascular disease, unspecified; F17.210 Nicotine dependence, cigarettes, uncomplicated; Z79.01 Long term (current) use of anticoagulants; Z79.82 Long term (current) use of aspirin
CPT/HCPCS: 74176; 80048; 81001; 85025; 85610; 85730; 87086; 96360; 99285

== ENCOUNTER 2023-07-29 08:18 | Day surgery (SDC) | payer MEDICARE, SELFPAY ==
[2023-07-29 08:36] VITALS: BP 135/48; PULSE 85; RESP 18; TEMP 36.1; O2SAT 97
[2023-07-29] MEDS: LACTATED RINGERS 1000ML 1,000 ML 25 ML IV (08:46)
--- NOTE | 2023-07-29 09:29 | P.PNANES_ITS ---
[facility] Disclaimer: The information contained in this section may have been updated after the patient was seen, as this information can be updated by other users. Medical History Bilateral carotid artery stenosis Dyspnea History of right common carotid artery stent placement History of wrist fracture Stenosis of left subclavian artery Typical angina Surgical History History of section History of hysterectomy History of tonsillectomy Family History Other Family history of cancer Social History (Updated 07/29/23 @ 08:38 by Ciara Mcadams RN) Smoking Status: Current every day smoker tobacco type: cigarettes packs per day: 1 alcohol intake: never substance use type: denies use current occupational status: disabled Travel in the last 8 weeks: None household members: family housing: house caffeine: Yes [facility] Anesthesia Checklist Patient Identification Patient Identification: Arm Band and Verbal (Name & ) Structural Data Admitted From: Home Planned Operative Procedure/s: Colonoscopy Consent for Planned Operative Procedure(s) Verified: Yes NPO Status Verified Time NPO: 00:00 Airway Assessment Mallampati Score:: Class II C-Spine Mobility Assessed: Yes TMJ Mobility Assessed: Yes Dentition: Poor Dentition Neurological Assessment Level of Consciousness: Awake Hx Seizures: No Numbness or tingling in extremities: No Anesthesia Plan Anesthesia Risk discussed: Yes Anesthesia Plan: Verified ASA Class: III Anesthesia Type: MAC
--- NOTE | 2023-07-29 09:36 | HMH.SCOPE ---
Procedure: Date: 07/29/23 Patient Date of :: 1950 Procedure Performed:: Total colonoscopy with polypectomy using snare and biopsy forceps Indications:: Patient is a 72-year-old female with history of carotid stenosis status post stent, hyperlipidemia, coronary artery disease, hypertension, COPD, arterial occlusive disease (peripheral vascular disease), smoker referred by [facility] for screening colonoscopy. She did undergo colonoscopy 10/16/[address] Flores and was found to have ascending colon lipoma and a few diverticuli. She has had subsequent Cologuard which were reportedly unremarkable. Patient states that a little bit over a year she has had about a 50 pound unintentional weight loss. She also has some significant constipation and has to take laxatives in order to get her bowels to move. It is questionable if the bowel prep was effective. Performing Provider:: Fady Mccauley MD Referring Provider:: Joe Wadsworth MD Sedation:: MAC sedation Procedure:: Patient history was obtained and appropriate physical examination was performed. Patient's medications and allergies were reviewed. Informed consent was obtained after explaining the benefits, alternatives, and risks of the procedure including, but not limited to, bleeding, perforation, missed lesions, and adverse reaction to anesthesia medications. Patient was transported to endoscopy procedure room. Patient was connected to monitoring devices. Throughout the procedure the patient's blood pressure, pulse, and oxygen saturations were monitored continuously. Patient identification and planned procedure were verified by the staff. Patient was positioned in lateral decubitus position. Digital anorectal exam was performed. Variable stiffness Olympus colonoscope was inserted and advanced under direct visualization to the cecum. Adequacy of the colonic preparation was noted. The colonoscope was advanced a short distance into the terminal ileum. The colonoscope was then slowly withdrawn while carefully examining the color, texture, anatomy, and integrity of the mucosoa circumferentially. Within the rectum retroflexion was performed. Colonoscope was then withdrawn. . There was noted to be significant sigmoid diverticulosis. Previously noted submucosal lipoma was seen in the ascending colon. In the sigmoid region there were multiple hyperplastic appearing polyps removed with forceps. The rectosigmoid region there were a couple of hyperplastic appearing polyps removed with cold cutting snare. In the rectosigmoid and proximal rectal area there were numerous hyperplastic appearing polyps. Sampling was obtained with biopsy forceps. Retroflexion within the rectum revealed nonpathologic internal hemorrhoids. Colonoscope was withdrawn. . Findings:: Significant sigmoid diverticulosis Multiple hyperplastic appearing polyps Recommendations:: Repeat colonoscopy pending pathology. If merely hyperplastic likely up to 10 years. May actually resume Cologuard testing if desired. However if any adenomatous component likely repeat colonoscopy within 3 years. No findings on colonoscopy which could explain constipation or weight loss. Complications:: None immediately apparent Estimated blood obtained (mL): 2 Colonoscopy Component Colonoscopy Component Was a colonoscopy performed during today's procedure?: Yes Recommended follow up colonoscopy of at least 10 years?: No If no, follow up colonoscopy recommended in ___ years?: 3-10 Reason for not recommending >/= 10 yr follow-up interval?: Pending pathology
[2023-07-29 09:48] VITALS: O2SAT 97
[2023-07-29 10:20] VITALS: BP 74/38; PULSE 85; RESP 16; O2SAT 97
[2023-07-29 10:30] VITALS: BP 80/32; PULSE 74; RESP 16; O2SAT 98
[2023-07-29 10:40] VITALS: BP 106/67; PULSE 72; RESP 16; O2SAT 98
[2023-07-29 10:50] VITALS: BP 119/69; PULSE 76; RESP 16; O2SAT 98
== END 2023-07-29 10:55 | disposition home or self-care (01) ==
PROVIDERS: PCP Family Medicine; Visit Provider Surgery
PROC: 0DJD8ZZ Inspection of Lower Intestinal Tract, Via Natural or Artificial Opening Endoscopic (ICD-10-PCS; CPT 45385; principal; 2023-07-29 09:30)
DX: Z12.11 Encounter for screening for malignant neoplasm of colon (principal); D12.7 Benign neoplasm of rectosigmoid junction; K62.1 Rectal polyp; K57.32 Diverticulitis of large intestine without perforation or abscess without bleeding; D17.5 Benign lipomatous neoplasm of intra-abdominal organs; K64.8 Other hemorrhoids
CPT/HCPCS: 45380; 45385; 88305; J2704

== ENCOUNTER 2023-10-07 13:58 | Outpatient (CLI) | payer MEDICARE, SELFPAY ==
[2023-10-07 15:01] LABS: Blood Urea Nitrogen 17 mg/dl (7-17); Estimated Glomerular Filt Rate 71 ml/min (>60); GFR (African American) 86 ML/MIN (>60)
== END 2023-10-07 23:59 ==
LOC: LAB 14:01
PROVIDERS: PCP Family Medicine; Visit Provider Family Medicine
DX: Z01.812 Encounter for preprocedural laboratory examination (principal)
CPT/HCPCS: 36415; 82565; 84520

== ENCOUNTER 2023-10-10 08:28 | Outpatient (CLI) | payer MEDICARE, SELFPAY ==
--- NOTE | 2023-10-10 | CA_ITS ---
APPROVED REPORT EXAM: Comprehensive 2D, Doppler, and color-flow Echocardiogram First Responder: Joanie Lopez CRT Ht: 5 ft 3 in Wt: 145lbs BSA: 1.69 BP: 140/65 mmHg Indications: Murmur, Shortness of Breath, Smoker 2D Dimensions LA Volume 35.90 mL LA Volume Index 20.80 mL/m2 (M/F) 16-34 M-Mode Dimensions RVDd 2.82 cm (0.9-2.6) LA Diam 3.35 cm (1.9-4.0) LVDd 3.89 cm (3.5-5.7) LVDs 2.10 cm (3.5-5.7) IVSd 1.85 cm (0.6-1.1) PWd 0.61 cm (0.6-1.1) EF (Teich) 78.00% FS 46.00% EDV (Teich) 65.50 mL TAPSE 2.04 (<1.7) ESV (Teich) 14.40 mL LV Diastology E Decel Time 230 (160-240 msec) E/A Ratio 0.89 MED A' 14.00 cm/s LAT A' 10.20 cm/s Aortic Valve AO Peak GR. 8.20 mmHg Mitral Valve MV A Velocity 102.0 (40-130 cm/s) E/A Ratio 0.89 Pulmonary Valve PV Peak Velocity 106.0 (50-150 cm/s) Tricuspid Valve TR P. Velocity 280.00 cm/s RAP Estimate 10.00 mmHg RVSP 41.30 mmHg Left Ventricle The left ventricle is normal size. The left ventricular systolic function is normal. The left ventricular ejection fraction is within the normal range. There is normal left ventricular wall thickness. There is normal LV segmental wall motion. The left ventricular diastolic function is normal. LVEF is 55%. Right Ventricle The right ventricle is normal size. Right ventricle systolic function is low normal. Atria The left atrium is mildly dilated. Right atrium is mildly dilated. There is no Doppler evidence of interatrial shunt. Aortic Valve The aortic valve is mildly thickened. There is no aortic valvular stenosis. Trace aortic regurgitation. Mitral Valve The mitral valve leaflets are mildly thickened. Mild mitral regurgitation. No evidence of mitral valve stenosis. Tricuspid Valve The tricuspid valve leaflets are thin and pliable. Mild tricuspid regurgitation. RVSP is 25-30 mmHg. Pulmonic Valve The pulmonary valve is normal in structure. Trace pulmonic regurgitation. Great Vessels The aortic root is normal in size. The ascending aorta is not well-visualized. IVC is normal in size and collapses >50% with inspiration. Pericardium There is no pericardial effusion. Other Information Study Quality: Fair Conclusion Normal biventricular systolic function. Mild biatrial dilation. Mild MR, mild TR. RVSP is 25-30 mmHg. Electronically signed by : Claire Bhat MD 10/13/2023 12:37:50
--- NOTE | 2023-10-10 09:19 | CT_ITS ---
FINAL REPORT TECHNIQUE: Multiple axial CT sections were performed from the foramen magnum to the vertex. Coronal reformatted images were also obtained. Precontrast and postcontrast injection images were obtained. This study was performed with technique to keep radiation doses as low as reasonably achievable, (ALARA). Individualized dose reduction techniques using automated exposure control or adjustment of mA and/or kV according to the patient size were employed. CLINICAL HISTORY: DIZZINESS FINDINGS: The ventricles are normal in size. There is no evidence of hemorrhage. No masses are identified. No extra-axial fluid collection is seen. The sinuses are normal. No osseous abnormality is seen on the bone window images. Postcontrast images demonstrate no abnormal enhancement. Vessels enhance in a normal fashion. There is no evidence of aneurysm. IMPRESSION: Unremarkable CT of the head with and without contrast. Reviewed, Interpreted and Dictated by Gerard Infante MD Transcribed by Lorene Herron Authenticated and [facility]
[2023-10-10] MEDS: SODIUM CHLORIDE 0.9% 10ML SYR (RAD ONLY) 10 ML IV (10:08)
[2023-10-10] MEDS: IOHEXOL-240 100ML BOTTLE 100 ML IV (10:08)
== END 2023-10-10 23:59 | disposition home or self-care (01) ==
LOC: RT 08:29
PROVIDERS: PCP Family Medicine; Visit Provider Nurse Practitioner Family
DX: R01.1 Cardiac murmur, unspecified (principal); R94.31 Abnormal electrocardiogram [ECG] [EKG]; R42 Dizziness and giddiness
CPT/HCPCS: 70470; 93306; Q9966

== ENCOUNTER 2023-11-30 10:40 | Outpatient (POV) | payer MEDICARE, SELFPAY | END 2023-11-30 23:59 | disposition home or self-care (01) | LOC: SC 10:41 | PROVIDERS: Visit Provider Specialist/Technologist | DX: Z00.00 Encounter for general adult medical examination without abnormal findings (principal) ==

== ENCOUNTER → 2024-01-25 10:12 | Day surgery (SDC) | payer MEDICARE, SELFPAY ==
--- NOTE | 2024-01-25 14:11 | EXP.TILT ---
Findings:: PROCEDURE: Tilt Table Test REQUESTING PHYSICIAN: Maribell Banda MD INDICATION: Dizziness, unsteady gait. BETA BLOCKERS: Patient denies being on beta blockers, although metoprolol 25 mg daily is listed on her med list. PRE-TEST VITAL SIGNS (supine position): BP 171/88, HR 72 and sinus rhythm, O2sats 95%. PROCEDURE SUMMARY: Patient was prepped per protocol, IV started, connected to heart, blood pressure and oxygen saturation monitors. Safety straps were applied and she was then tilted upright at 70 degrees for a total of 30 minutes. When she was first raised upright she felt mildly dizzy for a couple of minutes, but after that, was basically asymptomatic. Immediately after being placed upright, her blood pressure karen to 185/108 and heart rate karen slightly to 77 bpm. After that, her BP gradually dropped, reaching a low of 150/98 after 20 minutes upright. This was not accompanied by any symptoms. Five minutes later her BP had risen to 167/96, and five minutes after that was 153/101. Her HR remained relatively unchanged during the test, ranging from a low of 72 bpm to a high of 80 bpm. Her heart rhythm was normal sinus throughout. Her O2sats stayed at 95-96% throughout. CONCLUSIONS: Finding suggest possible delayed orthostatic hypotension without any associated symptoms.
== END ==
LOC: RT 10:13
PROVIDERS: PCP Family Medicine; Visit Provider Internal Medicine
DX: R42 Dizziness and giddiness (principal); Z79.899 Other long term (current) drug therapy; I95.1 Orthostatic hypotension
CPT/HCPCS: 93660

== ENCOUNTER 2024-01-30 12:25 | Outpatient (CLI) | payer MEDICARE, SELFPAY ==
--- NOTE | 2024-01-30 | XR_ITS ---
FINAL REPORT CLINICAL HISTORY: FALL lt knee COMPARISON: None FINDINGS: Three views of the left knee reveal no evidence of fracture or dislocation. The bony alignment is normal. There is mild degenerative change. There is no evidence of joint effusion. No acute localized soft tissue abnormality is seen. Mild vascular calcifications are noted. IMPRESSION: No acute abnormality identified. Reviewed, Interpreted and Dictated by Fady Real III, MD Transcribed by Pepper Prajapati Authenticated and [facility]
== END 2024-01-30 23:59 | disposition home or self-care (01) ==
LOC: RAD 12:28
PROVIDERS: PCP Family Medicine; Visit Provider Nurse Practitioner Family
DX: M25.562 Pain in left knee (principal); W19.XXXA Unspecified fall, initial encounter
CPT/HCPCS: 73562

== ENCOUNTER 2024-02-01 09:09 | Outpatient (CLI) | payer MEDICARE, SELFPAY ==
[2024-01-25 10:51] VITALS: BMI 25.7
--- NOTE | 2024-02-01 09:10 | MR_ITS ---
FINAL REPORT CLINICAL HISTORY: orthostatic dizziness COMPARISON: None FINDINGS: Multiplanar MR imaging of the brain was performed without contrast. There is motion artifact on many of the images decreasing sensitivity of this exam. There is mild age-appropriate atrophy. There are scattered foci of increased T2 signal in the cerebral white matter that have a nonspecific appearance but likely represent moderate chronic ischemic/gliotic changes. There is no evidence of intracranial hemorrhage or mass. No abnormal ventricular dilatation is identified. No abnormal extra-axial fluid collection is seen. No abnormality is seen on the diffusion weighted images. The posterior fossa and brainstem are unremarkable. Normal major vessel vascular flow voids are seen. There is opacification of multiple bilateral mastoid air cells. Mastoiditis is not excluded. IMPRESSION: Age-appropriate atrophy and mild chronic ischemic/gliotic changes. No acute intracranial abnormality. Possible mastoiditis. Reviewed, Interpreted and Dictated by Fady Real III, MD Transcribed by Pepper Prajapati Authenticated and [facility]
== END 2024-02-01 23:59 | disposition home or self-care (01) ==
LOC: RAD 09:10
PROVIDERS: PCP Nurse Practitioner Family; Visit Provider Specialist
DX: R42 Dizziness and giddiness (principal); I95.1 Orthostatic hypotension
CPT/HCPCS: 70551

== ENCOUNTER 2024-07-16 12:53 | Outpatient (CLI) | payer MEDICARE, SELFPAY | END 2024-07-16 23:59 | disposition home or self-care (01) | LOC: RAD 12:54 | PROVIDERS: PCP Family Medicine; Visit Provider Nurse Practitioner | DX: H70.91 Unspecified mastoiditis, right ear (principal) ==

== ENCOUNTER 2024-08-31 08:13 | Outpatient (CLI) | payer MEDICARE, SELFPAY ==
[2024-08-31 09:36] LABS: Blood Urea Nitrogen 18 mg/dl (7-17); Estimated Glomerular Filt Rate 82 ml/min (>60); GFR (African American) 100 ML/MIN (>60)
== END 2024-08-31 23:59 | disposition home or self-care (01) ==
LOC: LAB 08:14
PROVIDERS: PCP Family Medicine; Visit Provider Surgery
DX: K46.9 Unspecified abdominal hernia without obstruction or gangrene (principal)
CPT/HCPCS: 36415; 82565; 84520

== ENCOUNTER 2024-09-17 08:51 | Outpatient (CLI) | payer MEDICARE, SELFPAY ==
--- NOTE | 2024-09-17 08:45 | CT_ITS ---
FINAL REPORT TECHNIQUE: Pre-and postcontrast images of the abdomen and pelvis were performed by computed tomography. Extensive 3-D reconstruction images were performed. A CTA was performed. This study was performed with techniques to keep radiation doses as low as reasonably achievable (ALARA). Individualized dose reduction techniques using automated exposure control or adjustment of mA and/or kV according to the patient's size were employed. CLINICAL HISTORY: Hernia COMPARISON: None FINDINGS: ABDOMEN AND PELVIS: The lung bases are clear. Precontrast images demonstrate no evidence of nephrolithiasis. 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 No adrenal masses are identified. The liver, spleen and pancreas are unremarkable. The gallbladder is unremarkable in appearance. The abdominal portions of bowel are also unremarkable in appearance. In the pelvis, there is no mass or adenopathy. There is mild diverticulosis of the sigmoid colon without inflammatory change. No free fluid is identified. CTA: The infrarenal abdominal aortic aneurysm noted on the prior exam of 06/05/2023 previously measured 33 x 31 mm in size, and on today's examination measures 32 mm in the coronal dimension and 34 mm in the sagittal dimension, not significantly changed. The SMA, celiac axis, and DAR are patent. There is no significant stenosis or calcification. The renal arteries are patent bilaterally. The iliac arteries are patent bilaterally. IMPRESSION: No significant change in the size or appearance of the infrarenal abdominal aortic aneurysm when compared to the prior exam of 06/05/2023. Reviewed, Interpreted and Dictated by Haris Leong MD Transcribed by Emmy Fry Authenticated and [facility]
[2024-09-17] MEDS: SODIUM CHLORIDE 0.9% 10ML SYR (RAD ONLY) 10 ML IV (09:04)
[2024-09-17] MEDS: IOPAMIDOL-370 (76%);100ML BOTTLE 100 ML IV (09:04)
[2024-09-17] MEDS: 0.9 % SODIUM CHLORIDE 50 ML VIAL IV (09:04)
== END 2024-09-17 23:59 | disposition home or self-care (01) ==
LOC: RAD 08:52
PROVIDERS: PCP Family Medicine; Visit Provider Surgery
DX: I71.43 Infrarenal abdominal aortic aneurysm, without rupture (principal); K46.9 Unspecified abdominal hernia without obstruction or gangrene
CPT/HCPCS: 74174; Q9967

== ENCOUNTER 2024-09-18 09:02 | Outpatient (CLI) | payer MEDICARE, SELFPAY ==
--- NOTE | 2024-09-18 09:00 | MR_ITS ---
FINAL REPORT TECHNIQUE: Multiplanar MR without contrast CLINICAL HISTORY: possible mastoiditis, right side dizziness and headache COMPARISON: 02/01/2024 FINDINGS: Diffusion sequences show no signal abnormality to indicate acute infarct. Scattered periventricular and subcortical white matter signal changes are seen compatible with mild chronic ischemic gliotic disease. Mild age-appropriate generalized atrophy is present, unchanged since the prior exam of 02/01/2024. No mass, hemorrhage or edema is seen. Ventricles are normal. Major vascular flow voids are intact. There is worsening of the fluid in the right mastoid air cells, which extends into the middle ear cavity. The fluid in the left mastoid air cells has improved since the prior exam of 02/01/2024. IMPRESSION: Worsening fluid in the right mastoid air cells extending into the middle ear cavity when compared to the prior exam of 2023. The fluid in the left mastoid air cells has decreased compared with the prior exam. Age-appropriate atrophy and mild chronic ischemic change remains stable. Reviewed, Interpreted and Dictated by Haris Leong MD Transcribed by Emmy Fry Authenticated and [facility]
== END 2024-09-18 23:59 | disposition home or self-care (01) ==
LOC: RAD 09:02
PROVIDERS: PCP Family Medicine; Visit Provider Nurse Practitioner
DX: R42 Dizziness and giddiness (principal)
CPT/HCPCS: 70551

== ENCOUNTER 2024-11-05 10:12 | Outpatient (CLI) | payer MEDICARE, SELFPAY ==
[2024-11-07 15:11] LABS: HSV-1 DNA Negative (Negative); HSV-2 DNA Negative (Negative)
== END 2024-11-05 23:59 | disposition home or self-care (01) ==
LOC: LAB 10:13
PROVIDERS: PCP Family Medicine; Visit Provider Nurse Practitioner Obstetrics & Gynecology
DX: Z11.3 Encounter for screening for infections with a predominantly sexual mode of transmission (principal)
CPT/HCPCS: 36415; 87529

== ENCOUNTER 2025-01-11 14:18 | Outpatient (CLI) | payer MEDICARE, SELFPAY ==
--- OUTSIDE RECORDS SUMMARY | 2024-06-04 10:30 | XMS_ITS ---
Author Organization [facility] Address [address] [facility] [address] [place] [id number] Care Team Providers Care Yardmaster Name Role Phone Meri Wadsworth Primary Care Provider Cherelle Borrego Unavailable [phone] Allergies Allergen (clinical drug ingredient) Drug/Non Drug [...] a day; Duration: 30 day(s) Active Nystatin-Triamcinolone 563895-9.1 UNIT/GM 1 application Externally tid; Duration: 30 days 01/30/2024 Active Flonase Allergy Relief 50 MCG/ACT 1 spray in each nostril Nasally Once a day; Duration: 30 days 08/03/2023 Active Ketoconazole 2 % 1 Externally Twice a day; Duration: 30 day(s) 06/04/2024 Active Vital Signs Blood pressure systolic 130 mm Hg 06/04/20 24 Blood pressure diastolic 70 mm Hg 024 Heart Rate 103 /min 06/04/2024 Height 63 in 06/04/2024 Weight 163.2 lbs 06/04/2024 BMI 28.91 kg/m2 06/04/2024 Encounters Encounter Location Date Provider Diagnosis [facility] [address] [facility] 36 [facility] [address] [place], [place] [id number] 06/04/2024 Cherelle Borrego Environmental allerg ies Z91.048 [...] Appt Details Follow Up: prn, Reason: Provider Name:Meri Crum er, 02/11/2025 02:00:00 PM, [address] [facility] [address] [facility], [address], [place], [place], [id number], Progress Notes * ZION MACKEYADOB: 2 (74 yo F)Acc No.[id number]:06/04/2024 Progress Notes Patient: DOMINIC HUNTERNDA Provider: MICHELE Saha :1950 A ge:73 Y S ex:Female Date:06/04/2024 Address:[address] [place] [address], [place], [id number] Pcp:Meri Wadsworth Subjective: * Chief Complaints: * [...] is on disability. Past smoking status: yes, [id number]: , years:10 ,determination:. Occup. exposure: none. Recreational drug use: no. Alcohol: no. Sexually active: no.. Travel ouside [place]: no. * Medications: T aking Flonase Allergy Relief 50 MCG/ACT Suspension 1 spray in each nostril Nasally Once a day , Taking Nystatin-Triamcinolone 018437-9.1 UNIT/GM Cream 1 application Externally tid , [...] * Images: Billing Information: * Visit Code: 29852 Office Visit, Est Pt., Level 3. * Procedure Codes: 00083 PULSE OX. * Electronic signature of Dawna Borrego APRN on 01/11/2025 at 02:19 PM EDT Sign off status: Pending * Provider: MICHELE Saha Date: 08/05/2023 Generated for Printi ng/Faxing/eTransmitting on: 0 01/11/2025 02:19 PM EDT History and Physical Notes * HPI (History [...]
--- OUTSIDE RECORDS SUMMARY | 2024-08-24 10:45 | XMS_ITS ---
[facility] Address [address] [place] [id number] Care Team Providers Care Personnel Arbitrator Name Role Phone Meri Wadsworth Primary Care Provider Leslie Delvalle Unavailable [phone] Allergies Allergen (clinical drug ingredient) Drug/Non Drug Allergy documented on EMR Reaction Allergy Type Onset Date Status ciprofloxacin Cipro Hallucinations Drug Allergy Active Reason For Referral Diagnosis 1 Abdominal wall herni a (K43.9) [facility] Referring Provider First Name Leslie Referring Provider Last Name Adelia Referring Provider Speciality Physician Channel Lip Stiffener Insoles Referred Provider General Surgery, . Referred Provider [...] day; Duration: 7 days 08/24/2024 Active Nystatin-Triamcinolone 988593-2.1 UNIT/GM 1 application Externally tid; Duration: 30 days 01/30/2024 Active Vital Signs Blood pressure systolic 130 mm Hg 08/25/19 25 Blood pressure diastolic 70 mm Hg 025 Heart Rate 78 /min 08/24/2024 Height 63 in 08/24/2024 Weight 161.2 lbs 08/24/2024 BMI 28.55 kg/m2 08/24/2024 Encounters Encounter Location Date Provider Diagnosis [facility] [address] [facility] [address] [place] [phone] 08/24/2024 Leslie Crowdy Abdominal wall herni a [...] Follow Up: with Dr. Mccauley, Reason: Provider Name:Meri Crum er, 02/11/2025 02:00:00 PM, [address], [address], [place], [phone], Progress Notes * OG MACKEY: 2 (74 yo F)Acc No.[id number]:08/24/2024 Progress Notes Patient: MAHI HUNTER Provider: IDA Keene :1950 A ge:73 Y S ex:Female Date:08/24/2024 [address] [facility] [place], [place], [id number] Pcp:Meri Wadsworth Subjective: * Chief Complaints: * [...] is on disability. Past smoking status: yes, [id number]: , years:10 ,determination:. Occup. exposure: none. Recreational drug use: no. Alcohol: no. Sexually active: no.. Travel ouside [place]: no. * Medications: T aking Nystatin-Triamcinolone 703234-4.1 UNIT/GM Cream 1 application Externally tid , [...] * Images: Billing Information: * Visit Code: 74676 Office Visit, Est Pt., Level 3. * Procedure Codes: G2211 Complex e/m visit add on. 3075F SYST BP GE 130 - 139MM HG. 3078F DIAST BP < 80 MM HG. * Electronic signature of IDA Starr on 01/11/2025 at 02:20 PM EDT Sign off status: Pending * Provider: IDA Keene Date: 0 08/24/2024 Generated for Efreni andreea/Meliza/Jodismitting on: 0 01/11/2025 02:20 PM EDT History and Physical Notes * [...]
--- OUTSIDE RECORDS SUMMARY | 2025-01-04 10:15 | XMS_ITS ---
Author Organization [facility] Address [address] [facility] [address] [place] [id number] Care Team Providers Care Medical Reviewer Name Role Phone Meri Wadsworth Primary Care Provider [phone] Chivo Smith Unavailable [phone] Allergies Allergen (clinical drug ingredient) Drug/Non Drug Allergy documented on EMR Reaction Allergy Type Onset Date Status ciprofloxacin Cipro Hallucinations Drug Allergy Active Results Component Value Reference Range Notes P-Culture, Urine (Not yet re viewed by provider) Interpretation:Negative Performing Lab: Notes/Report: CLIA: [id number] Sly Pisano MD, Stock Roller [address] [place] [address] , [address], [place] [address] Test performed by [email or web address], [email or web address] Specimen Source Urine - Void Culture, Urine See Below Final Report : No Significant Growth Urinalysis - Inhouse Reviewed date:01/04/2025 10:18:34 PM Interpretation: Performing Lab: Notes/Report: Color/Clarity yellow Leuk 2+ Nitrite neg Urobili 3.2 Protein neg pH 6.0 Blood 1+ Sp. Gr. 1.015 Ketone neg Bili neg Gluc neg REASON FOR VISIT left hip pain Medications [...] Status W/U Status Risk Notes Problem Sciatica (56986050) Right sided sciatica (M54.31) Active confirmed Problem Chronic vaginitis (26578117) Chronic vaginitis (N76.1) Active confirmed Vital Signs Blood pressure systolic 150 mm Hg 01/05/20 25 Blood pressure diastolic 82 mm Hg 025 Heart Rate 77 /min 01/04/2025 Height 63 in 01/04/2025 Weight 168.6 lbs 01/04/2025 BMI 29.86 kg/m2 01/04/2025 Encounters Encounter Location Date Provider Diagnosis [facility] 12[address] [facility] [address] [id number] 01/04/2025 Chivo [place] Acute UTI N39.0 ; Ri ght sided [...] Notes Essential hypertension Not at goal today Pending Test Test Name Order Date Mammogram 01/04/2025 P-Culture, Urine 01/04/2025 Next Appt Details Follow Up: 4 Weeks fasting w ith Dr. Wadsworth, Reason: Provider Name:Meri Crum er, 02/11/2025 02:00:00 PM, 12[address] [facility] 36 [facility], [address] , [place], [place], [id number], Progress Notes * CANDIS MACKEYB: 2 (74 yo F)Acc No.[id number]:01/04/2025 Progress Notes Patient: MAHI HUNTER Provider: Daniel Smith M.D. :1950 A ge:74 Y S ex:Female Date:01/04/2025 Address:[address] [place] [address], [place], [id number] Pcp:Meri Wadsworth Subjective: * Chief Complaints: [...] cm infrarenal AAA 12/28/2019. * Surgical History: Dilan mata Past Surgical History. * Hospitalization/Major Diagno stic Procedure: Dilan mata Past Hospitalization. * Family History: F ather: [...] is on disability. Past smoking status: yes, [id number]: , years:10 ,determination:. Occup. exposure: none. Recreational [...] orally once a day , Discontinued Nystatin-Triamcinolone 255778- 0.1 UNIT/GM Cream 1 application Externally tid [...] COPD type - J44.9 1 0. B MN 29.0-29.9,adult - Z68.29 Plan: * Treatment: Value Reference Range C ulture, Urine See Below - * S pecimen Source Urine - Void - * Beatriz Oreilly 01/07/2025 03:49: 32 PM EDT > Tried to call pt, number is not reachableKingBeatriz 01/09/2025 01:07:28 PM EDT > Tried to call pt, number is not reachableKingBeatriz 01/11/2025 01:08:10 PM EDT > Tried to call pt, number is not reachable ?LAB: Urinalysis - Inhouse (Collection Date & [...] Refills 0. ?5.?Breast cancer screening by mammogram?Imaging: Mammogram* Yelitza Hdz 01/04/2025 03:1 1:34 PM EDT > faxed to [facility] Scheduling * Procedure Codes: G 2211 Complex e/[place], [address] Urinalysis, no micro, G8420 BMI<30 AND >=22 CALC & DOCU, G8950 PREHTN/HTN BP DOC INDCD F/U DOC, G8753 MOST RECENT SYSTOLIC BP >= 140MM HG, G8754 MOST RECENT DIASTOLIC BP < 90MM HG * Follow Up: [address] Wadsworth * Images: Billing Information: * Visit Code: 15215 Office Visit, Est Pt., Level 4. * Procedure Codes: G2211 Complex e/[place]. [address] Urinalysis, no micro. G8420 BMI<30 AND >=22 CALC & DOCU. G8950 PREHTN/HTN BP DOC INDCD F/U DOC. G8753 MOST RECENT SYSTOLIC BP >= 140MM HG. G8754 MOST RECENT DIASTOLIC BP < 90MM HG. * Electronic signature of Marina Smith MD on 01/11/2025 at 02:19 PM EDT Sign off status: Pending * Provider: Daniel Smith M.D. Date: 01/04/2025 Generated for Yumiko doran/Meliza/Adryanitting on: 01/11/2025 02:19 PM EDT History and Physical [...]
--- OUTSIDE RECORDS SUMMARY | 2025-01-11 14:20 | XMS_ITS | Clinical Summary ---
Author Organization [facility] Address [facility] [place] [address] Care Team Providers Care Vacuum Cooker Operator Name Role Phone Unavailable Primary Care Provider Unavailabl e Source Comments This information has been disclosed to you from confidential records protectedfrom disclosure by state law. You shall make no further disclosure of thisinformation without the specific, written, and informed release of theindividual to whom it pertains, or as otherwise permitted by law. A generalauthorization for the release of medical or other information is not sufficientfor the purposes of therelease of HIV test results or diagnoses. [id number] Social History Tobacco Use Types Packs/Day Years Used Date Smoking Tobacco: Never Assessed Comments Unknown Sex and Gender Information Value Date Recorded Sex Assigned at Not on file Legal Sex Female 10:53 PM EST Gender Identity Not on file Sexual Orientation Not on file Plan of Treatment Not on file
--- OUTSIDE RECORDS SUMMARY | 2025-01-11 14:20 | XMS_ITS ---
Author Organization Unknown TREATMENT PLAN [facility] Start Date Provider Encounter for Check-up [id number] [facility]
--- OUTSIDE RECORDS SUMMARY | 2025-01-11 14:20 | XMS_ITS | Clinical Summary ---
Author Organization [facility] Address [address] [facility], [address] [place] [address] Care Team Providers Care Animal Impersonator Name Role Phone System, Referring Not In Primary Care Provider U navailable Social History Tobacco Use Types Packs/Day Years Used Date Smoking Tobacco: Never Assessed Comments Unknown Sex and Gender Information Value Date Recorded Sex Assigned at Not on file Legal Sex Female 3:08 AM EST Gender Identity Not on file Sexual Orientation Not on file Plan of Treatment Not on file Care Teams Animal Impersonator Relationship Specialty Start Date End Date System, Referring Not In PCP - General 07/01/10
--- OUTSIDE RECORDS SUMMARY | 2025-01-11 14:20 | XMS_ITS | Patient Health Record ---
Author Organization [facility] Address [address] [facility] [address] [place] [id number] Care Team Providers Care Drafter Chief Design Name Role Phone Meri Wadsworth Primary Care Provider [phone] Nabil Smithian Unavailable [phone] Cherelle Borrego Unavailable [phone] Leslie Delvalle Unavailable [phone] Allergies Allergen (clinical drug ingredient) Drug/Non Drug Allergy documented on EMR Reaction Allergy Type Onset Date Status ciprofloxacin Cipro Hallucinations Drug Allergy Active Results Component Value Reference Range Notes P-Culture, Urine (Not yet re viewed by provider) Interpretation:Negative Performing Lab: Notes/Report: Test performed by [facility] [address] [place], [place] [address] [place] , [address], [place] [address] Sly Pisano MD, Care Transition Manager CLIA: [id number] Specimen Source Urine - Void Culture, Urine See Below Final Report : No Significant Growth Urinalysis - Inhouse Reviewed date:01/04/2025 10:18:34 PM Interpretation: Performing Lab: Notes/Report: Color/Clarity yellow Leuk 2+ Nitrite neg Urobili 3.2 Protein neg pH 6.0 Blood 1+ Sp. Gr. 1.015 Ketone neg Bili neg Gluc neg P-Lipid Panel Reviewed date:03/27/2024 09:00:11 AM Interpretation: Normal Performing Lab: Notes/Report: Test performed by [facility] [address] [place], [place] [address] [place] , [address], [place] [address] Sly Pisano MD, Care Transition Manager CLIA: [id number] Cholesterol 158 <200 mg/dL Triglycerides 78 <150 [...] Results: 93 Units: mg/dL % Change: -4% P-Comprehensive Metabolic Pa trina (CMP) Reviewed date:03/27/2024 09:00:41 AM Interpretation: Normal Performing Lab: Notes/Report: Test performed by [facility] [address] , [address], [place] [address] Sly Pisano MD, Care Transition Manager CLIA: [id number] Sodium 142 135-145 mmol/L Potassium 4.2 3.5-5.3 [...] 0.4 <0.2-1.2 mg/dL A/G Ratio 1.6 1.1-2.5 CBC Venipuncture (in house) Reviewed date:03/20/2024 01:40:28 [...] - 38 platlet 277 100 - 400 Urinalysis - Inhouse Reviewed date:01/30/2024 06:46:49 PM [...] Interpretation:nothing acute Performing Lab: Notes/Report: nothing acute Medications Medication SIG (Take, Route, Frequency, Duration) [...] 12 hrs; Duration: 5 days 01/04/2025 Active Clopidogrel Bisulfate 75 MG 1 tab(s) ora lly once a day; Duration: 30 days Active CoQ10 100 MG 1 cap(s) Orally once a day; Duration: 90 days Active Lisinopril 5 MG 1 tablet Orally Once a day; Duration: 30 days 01/04/2025 Active Caltrate 600+D Plus Minerals 600-800 MG-UNIT 1 tablet Orally once daily; Duration: 90 days Active Flonase Allergy Relief 50 MCG/ACT 1 spray in each nostril Nasally Once a day; Duration: 30 days 08/03/2023 Active Loratadine 10 MG 1 tablet Orally Once a day; Duration: 30 days 08/03/2023 Active Immunizations Vaccine Route Administration Date Status Comme nts Fluzone High Dose (65yr and older) IM Intramuscular 07/17/2018 Administered Fluzone High Dose (65yr and older) IM Intramuscular 03/25/2020 Administered Fluzone Quad (6months&older) IM Intramuscular 07/12/2016 Administered PNEUMOVAX 23 VACCINE IM Intramuscular 01/29/2020 Administe red Prevnar (PCV13) IM Intramuscular 01/11/2017 Administered Tetanus Tdap-Adacel (over 7yrs) IM Intramuscular 01/11/2017 Administered Problems Problem Type SNOMED Code ICD Code Onset Dates Problem Status W/U Status Risk Notes Problem Gastroesophageal reflux disease (443162827) GERD (gastroesophageal reflux disease) (K21.9) Active confirmed Problem Tobacco abuse (0438224829) Tobacco abuse (Z72.0) Active confirmed Problem Essential hypertension (70881427) Essential hypertension (I10) Active confirmed Problem Constipation (04514666) Constipation (K59.00) Active confirmed Problem Arthritis (6771797) Arthritis (M19.90) Active c onfirmed Problem Environmental allergy (364605209) Environmental allergies (Z91.048) Active confirmed Problem Lichen simplex chronicus (disorder) (60507127) Neurodermatitis (L28.0) Active confirmed Problem Mixed hyperlipidemia (729762912) Mixed hyperlipidemia (E78.2) Active confirmed Problem Tobacco user (197807122) Nicotine dependence, cigarettes, uncomplicated (F17.210) Active confirmed Problem Migraine without aura, not refractory (disorder) (650796194) Migraine, unspecified, not intractable, without status migrainosus (G43.909) Active confirmed Problem Fibrocystic breast changes (83396556) Diffuse cystic mastopathy of right breast (N60.11) Active confirmed Problem Fibrocystic breast changes (58625318) Diffuse cystic mastopathy of left breast (N60.12) Active confirmed Problem Malignant tumor of colon (625798546) Colon cancer (C18.9) Active confirmed Problem Arteriosclerotic vascular disease (55702732) Arteriosclerotic cardiovascular disease (I25.10) Active confirmed Problem Peripheral vascular disease (929098801) Peripheral vascular disease (I73.9) Active confirmed Problem Mammography abnormal (359863739) Abnormal mammogram of left breast (R92.8) Active confirmed Problem COPD - Chronic obstructive pulmonary disease (57685786) Chronic obstructive pulmonary disease, unspecified COPD type (J44.9) Active confirmed Problem Disorder of breast (93409348) Breast disorder (N64.9) Active confirmed Problem Lower abdominal pain (50494073) Lower abdominal pain (R10.30) Active confirmed Problem Dermatitis (582092999) Dermatitis (L30.9) Active confirmed Problem Chronic vaginitis (70440782) Chronic vaginitis (N76.1) Active confirmed Problem Ataxia (62186542) Ataxia (R27.0) Active confirm ed Problem Sciatica (58586287) Right sided sciatica (M54.31) Active confirmed Problem Body mass index 30.00 to 34.99 (573579491818525) BMI 31.0-31.9,adult (Z68.31) Active confirmed Problem Chronic pain (05588577) Chronic pain (G89.29) Active confirmed Problem Atherosclerotic heart disease of [place] coronary artery without angina pectoris (654638874072044) Atherosclerosis of [place] coronary artery without angina pectoris, unspecified whether [place] or transplanted heart (I25.10) Active confirmed Problem Occlusion and stenosis of multiple and bilateral cerebral arteries (123747286) Bilateral carotid artery stenosis (I65.23) Active confirmed Problem Disorder of carotid artery (disorder) (874016686) Carotid artery disease, unspecified laterality (I77.9) Active confirmed Problem Hearing loss (27823715) Hearing loss, unspecified hearing loss type, unspecified laterality (H91.90) Active confirmed Problem Osteopenia (483961222) Osteopenia, unspecified location (M85.80) Active confirmed Problem 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, unspecified vessel or lesion type, unspecified whether [place] or transplanted heart (I25.111) Active confirmed Problem Fibrocystic breast changes (83902243) Fibrocystic breast disease (FCBD), unspecified laterality (N60.19) Active confirmed Vital Signs Heart Rate 77 /min 01/04/2025 Blood pressure diastolic 82 mm Hg 01/04/2025 Height 63 in 01/04/2025 Blood pressure systolic 150 mm Hg 01/04/2025 Weight 168.6 lbs 01/04/2025 BMI 29.86 kg/m2 01/04/2025 Encounters Encounter Location Date Provider [facility] [address] [id number] 01/30/2024 Cherelle Borrego Fall W19.XXXA ; Dysu salomon R30.0 ; Dermatitis, unspecified L30.9 ; Osteopenia M85.80 ; Mixed hyperlipidemia E78.2 ; Peripheral vascular disease I73.9 ; GERD (gastroesophageal reflux disease) K21.9 ; Tobacco abuse Z72.0 ; Environmental allergies Z91.048 ; Arthritis M19.90 and Dizziness R42 [facility] [address] [place] [id number] 03/20/2024 Cherelle Borrego URI (upper respirato ry infection) J06.9 ; Mixed hyperlipidemia E78.2 ; Essential hypertension I10 and Bronchitis J40 [facility] [address], [place] [id number] 06/04/2024 Cherellesilke Borrego Environmental allerg ies Z91.048 and Dermatitis fungal B36.9 [facility] [address] [facility] [address] [place], [place] [id number] 08/24/2024 Leslie Delvalle Abdominal wall herni a K43.9 and Folliculitis L73.9 [facility] [address] [facility] [address] [place], [place] [id number] 01/04/2025 Chivo [place] Acute UTI N39.0 ; Ri ght sided sciatica M54.31 ; Chronic vaginitis N76.1 ; Essential hypertension I10 ; Peripheral vascular disease I73.9 ; Breast cancer screening by mammogram Z12.31 ; Mixed hyperlipidemia E78.2 ; Tobacco abuse Z72.0 ; Chronic obstructive pulmonary disease, unspecified COPD type J44.9 and BMI 29.0-29.9,adult Z68.29 [facility] [address] [facility] [address] [place], [place] [id number] 01/31/2024 [facility] [address] [facility] [address] [place] [id number] 03/12/2024 Cherelle Borrego [facility] [address] [facility] [address] [place] [id number] 03/27/2024 Cherellesilke Borrego Osteopenia M85.80 ; Arthritis M19.90 ; Mixed hyperlipidemia E78.2 and GERD (gastroesophageal reflux disease) K21.9 [facility] [address] [facility] [address] [place], [place] [id number] 04/09/2024 Meri Wadsworth Osteopenia M85.80 an d Arthritis M19.90 [facility] [address] [place] [id number] 07/10/2024 Meri Wadsworth GERD (gastroesophage al reflux disease) K21.9 [facility] [address] [facility] [address] [place], [place] [id number] 09/26/2024 Meri Wadsworth Peripheral vascular disease I73.9 ; Mixed hyperlipidemia E78.2 and GERD (gastroesophageal reflux disease) K21.9 Assessments Encounter Date Diagnosis (ICD Code) Assessment Notes Treatment Notes Treatment Clinical Notes Section Notes 01/30/2024 Dysuria (ICD-10 - R30.0) good water intake stressed 01/30/2024 Fall (ICD-10 - W19.XXXA) discussed fall prevention; she rarely uses her walker 03/20/2024 URI (upper respiratory infection) (ICD-10 - J06.9) fluids, rest, supportive measures for fever/symptom relief 03/20/2024 Mixed hyperlipidemia (ICD-10 - E78.2) 03/27/2024 Osteopenia (ICD-10 - M85.80) 04/09/2024 Osteopenia (ICD-10 - M85.80) 06/04/2024 Environmental allergies (ICD-10 - Z91.048) to restart allergy meds 06/04/2024 Dermatitis fungal (ICD-10 - B36.9) will try this antifungal cream ; to keep clean nd dry 07/10/2024 GERD (gastroesophageal reflux disease) (ICD-10 - K21.9) 08/24/2024 Folliculitis (ICD-10 - L73.9) 08/24/2024 Abdominal wall hernia (ICD-10 - K43.9) 09/26/2024 Peripheral vascular disease (ICD-10 - I73.9) 01/04/2025 Right sided sciatica (ICD-10 - M54.31) 01/04/2025 Acute UTI (ICD-10 - N39.0) 09/26/2024 Mixed hyperlipidemia (ICD-10 - E78.2) 01/04/2025 Chronic vaginitis (ICD-10 - N76.1) 04/09/2024 Arthritis (ICD-10 - M19.90) 03/27/2024 Arthritis (ICD-10 - M19.90) 03/20/2024 Essential hypertension (ICD-10 - I10) 01/30/2024 Dermatitis, unspecified (ICD-10 - L30.9) will start nystatin keep trey area dry 01/30/2024 Osteopenia (ICD-10 - M85.80) 03/20/2024 Bronchitis (ICD-10 - J40) has decrease tobacco; encouraged to further decrease 03/27/2024 Mixed hyperlipidemia (ICD-10 - E78.2) 09/26/2024 GERD (gastroesophageal reflux disease) (ICD-10 - K21.9) 01/04/2025 Essential hypertension (ICD-10 - I10) Not at goal today 01/04/2025 Peripheral vascular disease (ICD-10 - I73.9) 03/27/2024 GERD (gastroesophageal reflux disease) (ICD-10 - K21.9) 01/30/2024 Mixed hyperlipidemia (ICD-10 - E78.2) 01/30/2024 Peripheral vascular disease (ICD-10 - I73.9) 01/04/2025 Breast cancer screening by mammogram (ICD-10 - Z12.31) 01/04/2025 Mixed hyperlipidemia (ICD-10 - E78.2) 01/30/2024 GERD (gastroesophageal reflux disease) (ICD-10 - K21.9) 01/30/2024 Tobacco abuse (ICD-10 - Z72.0) again discussed cessation 01/04/2025 Tobacco abuse (ICD-10 - Z72.0) 01/04/2025 Chronic obstructive pulmonary disease, unspecified COPD type (ICD-10 - J44.9) 01/30/2024 Environmental allergies (ICD-10 - Z91.048) 01/30/2024 Arthritis (ICD-10 - M19.90) 01/04/2025 BMI 29.0-29.9,adult (ICD-10 - Z68.29) 01/30/2024 Dizziness (ICD-10 - R42) see Dr. Banda note; to have MRI of the head; she will FU with Dr. Banda after tests; again stressed careful with change of positions 01/30/2024 Other will RTC for fasting labs--CMP and Lipids; A1C Plan Of Treatment Pending Test Test Name Order Date Ultrasound : Breasts, bilateral 05/17/20 23 Bone density 01/30/2024 colonoscopy 05/03/2023 Mammogram 01/04/2025 P-Culture, Urine 01/04/2025 Next Appt Details Provider Name:Meri Crum er, 02/11/2025 02:00:00 PM, [address], [address], [place], [id number], Insurance Providers Payer Name Payer Address Payer Phone Subscriber Number Group Number Insured Name Patient Relationship to Insured Coverage Start Date Coverage End Date [employer] (MEDICAR E) [address] [address] [place] [address] [id number] MAHI MACKEY Self - patient is the insured Medications Administered Medication Instructions Date of Administration Dosage Notes Depo- Medrol 40 mg/ml 08/14/2012 Morphine 09/24/2014 2 mg Morphine 01/02/2015 2 mg phenergan 25 mg/ml 09/24/2014 0.5 mL phenergan 25 mg/ml 01/02/2015 25 mg Medical (General) History Medical History History ICD Code migraine headache HTN hyperlipidemia PVD arthritis tobacco use disorder Carotids 20-49% bilaterally 01/25/17 EF 55% on echo 01/25/17 Dexa 01/20/17 osteopenia 3 cm infrarenal AAA 12/28/2019 Surgical History Surgery Date(Month/Year) Hospitalization History Reason Date(Month/Year)
--- OUTSIDE RECORDS SUMMARY | 2025-01-11 14:20 | XMS_ITS | Clinical Summary ---
Author Organization [facility] Address [address] [place] [address] Care Team Providers Care Sterilisation Technician Name Role Phone Thai Wadsworth MD Primary Care Provider [phone] Family History Medical History Relation Name Comments Other cancer Father Other cancer Mother Relation Name Status Comments Father Mother Social History Tobacco Use Types Packs/Day Years Used Date Smoking Tobacco: Every Day Comments Unknown Sex and Gender Information Value Date Recorded Sex Assigned at Not on file Legal Sex Female 6:12 PM EDT Gender Identity Not on file Sexual Orientation Not on file Last Filed Vital Signs Vital Sign Reading Time Taken Comments Blood Pressure - - Pulse - - Temperature - - Respiratory Rate - - Oxygen Saturation - - Inhaled Oxygen Concentration - - Weight 85.7 kg (189 lb) 01/10/2015 10:25 AM EDT Height 160 cm (5' 3 ) 01/10/2015 10:25 AM EDT Body Mass Index 33.48 01/10/2015 10:25 AM EDT Plan of Treatment Health Maintenance Due Date Last Done Comments [facility]-Bone Density Scan 1950 [facility]-Depression Screening 1950 [facility]-Hepatitis C Screening 1950 [facility]-Medicare Annual Wellness (AWV) 1950 [facility]-Infant/Child/Adol SDOH Screenings 1950 [facility]- SDOH Screenings 12/03/1969 [facility]-Adult SDOH Screenings 12/03/1969 CT Colonography 12/03/1996 Colonoscopy 12/03/1996 FIT-DNA 12/03/1996 FIT 12/03/1996 FOBT 12/03/1996 Sigmoidoscopy 12/03/1996 [facility]-Colorectal Cancer Screening 12/03/1996 [facility]-Breast Cancer Screening 12/03/2001 [facility]-Zoster Vaccines (1 of 2) 12/03/2001 [id number] Vaccine (1 - 2023- season) 2024 [facility]-Influenza Vaccine (#1) 2025 [facility]-RSV Vaccine: 60+ Years o r (1 - 1-dose 75+ series) 12/03/2026 [facility]-DTaP,Tdap,and Td Vaccine s (2 - Td or Tdap) 01/11/2027 01/11/2017 [facility]-Pneumococcal Vaccine: 50 + Years Completed 01/29/2020, 01/11/2017 HPV Vaccines Aged Out No longer eligi ble based on patient's age to complete this topic [facility]-HIB Vaccines Aged Out No longer e ligible based on patient's age to complete this topic [facility]-Hepatitis A Vaccines Aged Out No longer eligible based on patient's age to complete this topic [facility]-IPV Vaccines Aged Out No longer e ligible based on patient's age to complete this topic [facility]-Rotavirus Vaccines Aged Out No lo nger eligible based on patient's age to complete this topic Insurance [employer] MEDICARE Care Teams Sterilisation Technician Relationship Specialty Start Date End Date Thai Wadsworth MD [address] [place] [address] PCP - General 10/31/20
--- NOTE | 2025-01-11 14:21 | MM_ITS ---
PROCEDURE INFORMATION: Exam: MG Bilateral Screening 3D Mammography Exam date and time: 01/11/2025 2:21 PM Age: 74 years old Clinical indication: Screening examination TECHNIQUE: Imaging protocol: Bilateral Screening tomosynthesis and 2D mammography including computer-aided detection (CAD) when performed. COMPARISON: 1. MG MM DIG SCREENING MAMM BI W/CAD 06/03/2023 1:59 PM 2. MG MM DIG MAMM DX UNILAT LT CAD 07/13/2022 2:44 PM FINDINGS: MAMMOGRAPHY: Breast composition: There are scattered areas of fibroglandular density. Mass: No suspicious masses. Architectural distortion: None. Calcifications: No suspicious calcifications. Asymmetric density: None. Skin thickening: None. Axillary adenopathy: None. IMPRESSION: No mammographic evidence of malignancy. Annual screening is recommended unless otherwise clinically indicated. ASSESSMENT: BI-RADS Category 1: Negative.
== END 2025-01-11 23:59 | disposition home or self-care (01) ==
LOC: RAD 14:18
PROVIDERS: PCP Family Medicine; Visit Provider Family Medicine
DX: Z12.31 Encounter for screening mammogram for malignant neoplasm of breast (principal); R92.323 Mammographic fibroglandular density, bilateral breasts
CPT/HCPCS: 77063; 77067

== ENCOUNTER 2025-05-13 09:38 | Outpatient (CLI) | payer MEDICARE, SELFPAY ==
--- OUTSIDE RECORDS SUMMARY | 2024-01-30 05:45 | XMS_ITS ---
Author Organization [facility] Address [address] [place] [id number] Care Team Providers Care Electronics Assembler And Tester Name Role Phone Meri Wadsworth Primary Care Provider Cherelle Borrego Unavailable [phone] Allergies Allergen (clinical drug ingredient) Drug/Non Drug Allergy documented on EMR Reaction Allergy Type Onset Date Status ciprofloxacin Cipro Hallucinations Drug Allergy Active Results Component Value Reference Range Notes Urinalysis - Inhouse Reviewed date:01/30/2024 06:46:49 PM Interpretation: Performing Lab: Notes/Report: Color/Clarity yellow Leuk neg Nitrite neg Urobili 3.2 Protein neg pH 5.5 Blood neg Sp. Gr. 1.025 Ketone trace Bili 1+ Gluc neg CBC Fingerstick (in house) Reviewed date:01/30/2024 11:58:30 AM Interpretation: Performing Lab: Notes/Report: wbc 8.3 3.5 - 10 lym 15.1 15 - 50 mid 3.9 2 - 15 gran 81.0 35 - 80 rbc 4.47 3.5 - 5.5 hgb 13.4 11.5 - 16.5 hct 40.6 35 - 55 mcv 90.7 75 - 100 mch 29.9 25 - 35 mchc 33.0 31 - 38 plat 249 100 - 400 X ray : Knee, left Reviewed date:01/31/2024 02:55:45 PM Interpretation:nothing acute Performing Lab: Notes/Report: nothing acute Bone density Reviewed date:04/30/2025 02:19:55 PM Interpretation:did not show Performing Lab: Notes/Report: did not show REASON FOR VISIT check up , needing an updated letter of care, Needs labs, bone density screening, & colon cancer screening Medications Medication SIG (Take, Route, Frequency, Duration) Notes Start Date End Date Status Aspirin 81 MG 1 tab(s) orally once a day; Duration: 90 days Not-Taking methylPREDNISolone 4 MG as directed Orally 08/08/2023 Not-Taking Flonase Allergy Relief 50 MCG/ACT 1 spray in each nostril Nasally Once a day 08/03/2023 Active Caltrate 600+D Plus Minerals 600-800 MG-UNIT 1 tablet Orally once daily; Duration: 30 day(s) Active Nystatin-Triamcinolone 565565-2.1 UNIT/GM 1 application Externally tid; Duration: 30 days 01/30/2024 Active CoQ10 30 MG 1 cap(s) Orally once a day; Duration: 30 day(s) Active metroNIDAZOLE 500 MG 1 tablet Orally Three times a day; Duration: 7 days 02/04/2023 Not-Taking Metoprolol Succinate ER 25 MG 1 tab(s) orally once a day; Duration: 90 days Not-Taking Trulance 3 MG 1 tablet Orally Once a day samples given 02/07/2023 Not-Taking Loratadine 10 MG 1 tablet Orally Once a day; Duration: 30 days 08/03/2023 Active Pantoprazole Sodium 40 MG 1 tab(s) orally once a day Active Clopidogrel Bisulfate 75 MG 1 tab(s) orally once a day; Duration: 30 day(s) Active Fosamax 70 MG 1 tab(s) orally once a week; Duration: 90 days 10/29/2021 Not-Taking Albuterol Sulfate HFA 108 (90 Base) MCG/ACT 1 puff as needed Inhalation every 4 hrs, prn 12/31/2022 Not-Taking Simvastatin 40 MG 1 tab(s) orally once a day (at bedtime); Duration: 30 day(s) Active Problems Problem Type SNOMED Code ICD Code Onset Dates Problem Status W/U Status Risk Notes Problem Environmental allergy (117183132) Environmental allergies (Z91.048) Active confirmed Vital Signs Weight 155.2 lbs 01/30/2024 Blood pressure systolic 114 mm Hg 01/30/20 24 Blood pressure diastolic 64 mm Hg 024 Heart Rate 85 /min 01/30/2024 Height 63 in 01/30/2024 BMI 27.49 kg/m2 01/30/2024 Encounters Encounter Location Date Provider Diagnosis [facility] [address] [place] [id number] 01/30/2024 Cherelle Borrego Fall W19.XXXA ; Dysu salomon R30.0 ; Dermatitis, unspecified L30.9 ; Osteopenia M85.80 ; Mixed hyperlipidemia E78.2 ; Peripheral vascular disease I73.9 ; GERD (gastroesophageal reflux disease) K21.9 ; Tobacco abuse Z72.0 ; Environmental allergies Z91.048 ; Arthritis M19.90 and Dizziness R42 Assessments Encounter Date Diagnosis (ICD Code) Assessment Notes Treatment Notes Treatment Clinical Notes Section Notes 01/30/2024 Fall (ICD-10 - W19.XXXA) discussed fall prevention; she rarely uses her walker 01/30/2024 Dysuria (ICD-10 - R30.0) good water intake stressed 01/30/2024 Dermatitis, unspecified (ICD-10 - L30.9) will start nystatin keep trey area dry 01/30/2024 Osteopenia (ICD-10 - M85.80) 01/30/2024 Mixed hyperlipidemia (ICD-10 - E78.2) 01/30/2024 Peripheral vascular disease (ICD-10 - I73.9) 01/30/2024 GERD (gastroesophageal reflux disease) (ICD-10 - K21.9) 01/30/2024 Tobacco abuse (ICD-10 - Z72.0) again discussed cessation 01/30/2024 Environmental allergies (ICD-10 - Z91.048) 01/30/2024 Arthritis (ICD-10 - M19.90) 01/30/2024 Dizziness (ICD-10 - R42) see Dr. Banda note; to have MRI of the head; she will FU with Dr. Banda after tests; again stressed careful with change of positions 01/30/2024 Other will RTC for fasting labs--CMP and Lipids; A1C Plan Of Treatment Medication Medication Name Sig Start Date Stop Date Notes Caltrate 600+D Plus Minerals 600-800 MG-UNIT 1 tablet Orally once daily; Duration: 30 day(s) Nystatin-Triamcinolone 299420-9.1 UNIT/GM 1 application Externally tid; Duration: 30 days 01/30/2024 CoQ10 30 MG 1 cap(s) Orally once a day; Duration: 30 day(s) Loratadine 10 MG 1 tablet Orally Once a day; Duration: 30 days 08/03/2023 Pantoprazole Sodium 40 MG 1 tab(s) orally once a day Clopidogrel Bisulfate 75 MG 1 tab(s) ora lly once a day; Duration: 30 day(s) Simvastatin 40 MG 1 tab(s) orally once a day (at bedtime); Duration: 30 day(s) Treatment Notes Assessment Notes Fall discussed fall preve ntion; she rarely uses her walker Dysuria good water intake st ressed Dermatitis, unspecified will start nysta tin keep trey area dry Tobacco abuse again discussed cess ation Dizziness see Dr. Banda note; to have MRI of the head; she will FU with Dr. Banda after tests; again stressed careful with change of positions Other will RTC for fasting labs--CMP and Lipids; A1C Next Appt Details Follow Up: 6 Months,and prn, Reason: Provider Name:Cherelle georges, 10/21/2025 10:00:00 AM, [address] [facility], [address], [place], [place], [id number], Progress Notes * ZION MACKEYADOB: 2 (74 yo F)Acc No.[id number]:01/30/2024 Progress Notes Patient: MAHI HUNTER Provider: MICHELE Saha :1950 A ge:73 Y S ex:Female Date:01/30/2024 Address:[address], [place], [id number] Pcp:Meri Wadsworth Subjective: * Chief Complaints: * 1 . Check up , needing an updated letter of care. 2. Needs labs, bone density screening, & colon cancer screening. * HPI: N eurology: Pt was seen by Dr. Banda on 01/18/24 (see consult notes). K nee/Zamora: c/o knee pain P t c/o pain in the left knee. c/o swelling. c/o redness. c/o sensation of knee giving out. c/o Direct Trauma. tripped and fell on the left knee. C ardiology: Hypotension P t sts that Dr. Banda done several blood pressure readings and sts that when she is laying down her BP is good but when she is sitting it drops and when she stands up even further. * ROS: D ERMATOLOGY: no R cristo. n o H maricarmen. E NT: Positive for n otes from ENT visit with Magi Oreilly APRN 11/30/2023 as follows: Plan 72-year-old female patient presents to clinic today, accompanied by daughter, for audiometric follow-up. Patient does state the ear popping and congestion has improved using the azelastine spray. Patient states the tinnitus has somewhat improved as well but still remains. Audiogram did show mild to severe mixed loss bilaterally with eustachian tube dysfunction bilaterally. Patient did have type B flat tympanograms bilaterally as well. Patient states she does not wish to pursue hearing aids at this time.? She states the nasal spray is helping decrease her symptoms. Examination today reveals bilateral tympanic membranes with mild serous effusions bilaterally however no infection present. Pharynx/oropharynx examined, no erythema, tonsils absent. Neck palpated, no thyromegaly noted on today's examination, also no lymphadenopathy. The remainder of the head neck examination is unremarkable. Will have patient continue the azelastine nasal spray, will add Xyzal 5 mg p.o. daily. Will plan to recheck audiogram in approximately 4 to 5 months. Patient instructed that should she develop any increasing of symptoms or concerns we will be happy to see her back in the clinic sooner. Understanding verbalized.. G ASTROENTEROLOGY: Positive for c olonoscopy report from 07/2023: Findings:: Significant sigmoid diverticulosis Multiple hyperplastic appearing polyps Recommendations:: Repeat colonoscopy pending pathology. If merely hyperplastic likely up to 10 years. May actually resume Cologuard testing if desired. However if any adenomatous component likely repeat colonoscopy within 3 years. No findings on colonoscopy which could explain constipation or weight loss. Complications:: None immediately apparent Estimated blood obtained (mL): 2 pathology reported neg polyps. n o N ausea.?no V omiting. N EUROLOGY: Positive for n otes from OV with neuro, Dr Banda as follows: Assessment & Plan (1) Orthostatic dizziness: Code(s): R42 - Dizziness and giddiness Status: Chronic (2) Mixed hearing loss: Code(s): H90.8 - Mixed conductive and sensorineural hearing loss, unspecified Status: Chronic Qualifiers: Laterality: bilateral Qualified Code(s): H90.6 - Mixed conductive and sensorineural hearing loss, bilateral Problem Comment: mild to severe mixed hearing loss bilaterally per Audiometric (3) Chronic eustachian tube dysfunction: Code(s): H69.90 - Unspecified Eustachian tube disorder, unspecified ear Status: Chronic Qualifiers: Laterality: bilateral Qualified Code(s): H69.93 - Unspecified Eustachian tube disorder, bilateral (4) Tobacco abuse disorder: Code(s): Z72.0 - Tobacco use Status: Chronic Plan Brain MRI without gadolinium Tilt table test Overnight oximetry on room air Patient Instructions: Consider smoking cessation. Fall precautions due to orthostatic dizziness and follow-up with PCP for further evaluation and treatment . U ROLOGY: no D ifficulty urinating. n o B lood in urine. * Medical History: M igraine headache, HTN, Hyperlipidemia, PVD, Arthritis, Tobacco use disorder, Carotids 20-49% bilaterally 01/25/17, EF 55% on echo 01/25/17, Dexa 01/20/17 osteopenia, 3 cm infrarenal AAA 12/28/2019. * Family History: F ather: 71 yrs, diagnosed with Cancer. M other: 61 yrs, diagnosed with Cancer. P aternal Grand Father: . P aternal Grand Mother: . M aternal Grand Father: . M aternal Grand Mother: . 2 brother(s) , 2 sister(s) . 1 son(s) , 1 daughter(s) . . Father had lung cancer; mother had a malignant brain tumor; 2 brothers have Leukemia and one of these brothers had a Melanoma. * Social History: C URRENT TOBACCO USE S moking Status: P atient does smoke, n umber of cigarettes per day: 2 0. C affeine: yes, frequency:daily. Exercise: yes. Home smoke detector use: yes. Marital Status: divorce. New since last visit: none. Occupation: is on disability. Past smoking status: yes, [id number]: , years:10 ,determination:. Occup. exposure: none. Recreational drug use: no. Alcohol: no. Sexually active: no.. Travel ouside [place]: no. * Medications: T aking Simvastatin 40 MG Tablet 1 tab(s) orally once a day (at bedtime) , Taking Pantoprazole Sodium 40 MG Tablet Delayed Release 1 tab(s) orally once a day , Taking Clopidogrel Bisulfate 75 MG Tablet 1 tab(s) orally once a day , Taking Caltrate 600+D Plus Minerals 600-800 MG-UNIT Tablet 1 tablet Orally once daily , Taking Loratadine 10 MG Tablet 1 tablet Orally Once a day , Taking Flonase Allergy Relief 50 MCG/ACT Suspension 1 spray in each nostril Nasally Once a day , Taking CoQ10 30 MG Capsule 1 cap(s) Orally once a day , Not-Taking Fosamax 70 MG Tablet 1 tab(s) orally once a week , Not-Taking Albuterol Sulfate HFA 108 (90 Base) MCG/ACT Aerosol Solution 1 puff as needed Inhalation every 4 hrs, prn , Not-Taking metroNIDAZOLE 500 MG Tablet 1 tablet Orally Three times a day , Not-Taking Trulance 3 MG Tablet 1 tablet Orally Once a day , Notes to Pharmacist: samples given, Not-Taking Metoprolol Succinate ER 25 MG Tablet Extended Release 24 Hour 1 tab(s) orally once a day , Not-Taking Aspirin 81 MG Tablet Delayed Release 1 tab(s) orally once a day , Not-Taking methylPREDNISolone 4 MG Tablet Therapy Pack as directed Orally , Discontinued Bactrim DS 800-160 MG Tablet 1 tablet Orally Two times a day , Medication List reviewed and reconciled with the patient * Allergies: C ipro: Hallucinations. Objective: * Vitals: W t:155.2, Temp:98.2, BP:114/64, HR:85, O2 Sat:98% on RA, Nurse:KENNETH, Ht: 63, BMI:27.49. * Examination: G eneral Examination: General Appearance: NAD, appears healthy, alert, pleasant; walking better. H EENT: sclera and conjunctiva clear, PERRLA, TM's normal, translucent.?Oral cavity: no lesions, mucosa moist and WNL, poor dentition. N fabricio: supple, no lymphadenopathy. H eart: RRR. L ungs: CTAB A&P. A bdomen: bowel sounds present, soft and nontender. N eurologic Exam: alert and oriented. E xtremities: contusion of the left knee;pain, edema, ; difficult to flex and extend. d eclines trey exam. L ABS: Tilt table test results: PROCEDURE: Tilt Table Test REQUESTING PHYSICIAN: Maribell Banda MD INDICATION: Dizziness, unsteady gait. BETA BLOCKERS: Patient denies being on beta blockers, although metoprolol 25 mg daily is listed on her med list. PRE-TEST VITAL SIGNS (supine position): BP 171/88, HR 72 and sinus rhythm, O2sats 95%. PROCEDURE SUMMARY: Patient was prepped per protocol, IV started, connected to heart, blood pressure and oxygen saturation monitors. Safety straps were applied and she was then tilted upright at 70 degrees for a total of 30 minutes. When she was first raised upright she felt mildly dizzy for a couple of minutes, but after that, was basically asymptomatic. Immediately after being placed upright, her blood pressure karen to 185/108 and heart rate karen slightly to 77 bpm. After that, her BP gradually dropped, reaching a low of 150/98 after 20 minutes upright. This was not accompanied by any symptoms. Five minutes later her BP had risen to 167/96, and five minutes after that was 153/101. Her HR remained relatively unchanged during the test, ranging from a low of 72 bpm to a high of 80 bpm. Her heart rhythm was normal sinus throughout. Her O2sats stayed at 95-96% throughout. CONCLUSIONS: Finding suggest possible delayed orthostatic hypotension without any associated symptoms. . Assessment: * Assessment: 1. F all - W19.XXXA (Primary) 2 . D ysuria - R30.0 3 . D ermatitis, unspecified - L30.9 S pecify :urogenital 4 . O steopenia - M85.80 5 . M ixed hyperlipidemia - E78.2? 6. P eripheral vascular disease - I73.9 7 . G ERD (gastroesophageal reflux disease) - K21.9 8 . T obacco abuse - Z72.0 9 .?Environmental allergies - Z91.048 1 0. A rthritis - M19.90 ?11. D izziness - R42 Plan: * Treatment: Notes: discussed fall prevention; she rarely uses her walker??2.?Dysuria?LAB: Urinalysis - Inhouse (Collection Date & Time - 01/30/2024)* Value Reference Range C olor/Clarity yellow * L euk neg * N itrite neg * U robili 3.2 * P rotein neg * p H 5.5 * B lood neg * S p. Gr. 1.025 * K etone trace * B jim 1+ * G corbin neg * Nicolasa Denny 01/30/2024 11:5 6:21 AM > results reviewed w/ pt in officeCherelle Borrego 01/30/2024 6:46:48 PM > ?LAB: CBC Fingerstick (in house) (Collection Date & Time - 01/30/2024)* Value Reference Range w bc 8.3 3.5 - 10 * l ym 15.1 15 - 50 * m id 3.9 2 - 15 * g ran 81.0 35 - 80 * r bc 4.47 3.5 - 5.5 * h gb 13.4 11.5 - 16.5 * h ct 40.6 35 - 55 * m cv 90.7 75 - 100 * m ch 29.9 25 - 35 * m chc 33.0 31 - 38 * p lat 249 100 - 400 * Nicolasa Denny 01/30/2024 11:5 7:44 AM > results reviewed w/ pt in office Notes: good water intake stressed??3.?Dermatitis, unspecified? Notes: will start nystatin keep trey area dry??4.?Osteopenia? Refill Caltrate 600+D Plus Minerals Tablet, 600-800 MG-UNIT, 1 tablet, Orally, once daily, 30 day(s), 30, Refills 5;?Start Nystatin-Triamcinolone Cream, 936098-4.1 UNIT/GM, 1 application, Externally, tid, 30 days, 1, Refills 1.?Imaging: Bone density (Performed Date - 04/30/2025)?did not show* Maddie Borregoharine 01/30/2024 7:23:01 PM >Yelitza Hdz 01/31/2024 9:28:05 AM > no auth needed; CPT code 31874; faxed to scheduling 5.?Mixed hyperlipidemia? Refill Simvastatin Tablet, 40 MG, 1 tab(s), orally, once a day (at bedtime), 30 day(s), 30, Refills5.??6.?Peripheral vascular disease? Refill Clopidogrel Bisulfate Tablet, 75 MG, 1 tab(s), orally, once a day, 30 day(s), 30 Tablet, Refills 5.??7.?GERD (gastroesophageal reflux disease)? Continue Pantoprazole Sodium Tablet Delayed Release, 40 MG, 1 tab(s), orally, once a day.? 8.?Tobacco abuse? Notes: again discussed cessation??9.?Environmental allergies? Refill Loratadine Tablet, 10 MG, 1 tablet, Orally, Once a day, 30 days, 30 Tablet, Refills 5.? 10.?Arthritis? Refill CoQ10 Capsule, 30 MG, 1 cap(s), Orally, once a day, 30 day(s), 30 Capsule, Refills 5.? 11.?Dizziness? Notes: see Dr. Banda note; to have MRI of the head; she will FU with Dr. Banda after tests; again stressed careful with change of positions ??12.?Others? Notes: will RTC for fasting labs--CMP and Lipids; A1C?? * Procedure Codes: 9 [address] [place], [address] CAPILLARY BLOOD DRAW, 83811 CBC WITH AUTO DIFF, 47353 Urinalysis, no micro * Follow Up: 6 Months,and prn * Images: Billing Information: * Visit Code: 30075 Office Visit, Est Pt., Level 4. * Procedure Codes: [address] [place]. [address] CAPILLARY BLOOD DRAW. 26128 CBC WITH AUTO DIFF. 35566 Urinalysis, no micro. * Electronic signature of Dawna Borrego APRN on 05/13/2025 at 09:42 AM EST Sign off status: Pending * Provider: MICHELE Saha Date: 0 01/30/2024 Generated for Yumiko doran/Meliza/Cori on: 1 07/13/2024 09:42 AM EST History and Physical Notes * HPI (History of Present Illness) Category Sub-Category Detail Notes Category Not es Neurology Pt was seen by Dr. Banda on 01/18/24 (see consult notes) Cardiology Hypotension Pt sts that Dr. Banda done several blood pressure readings and sts that when she is laying down her BP is good but when she is sitting it drops and when she stands up even further Knee/Zamora knee pain Pt c/o pain in the left knee tripped and fell on the left knee sensation of knee giving out swelling redness Direct Trauma Examination Category Sub-Category Detail Notes Category Not es General Examination HEENT: sclera and c onjunctiva clear, PERRLA, TM's normal, translucent declines trey exam Heart: RRR Lungs: CTAB A&P Abdomen: bowel sounds present , soft and nontender Extremities: contusion of the lef t knee;pain, edema, ; difficult to flex and extend General Appearance: NAD, appears healthy , alert, pleasant; walking better Neurologic Exam: alert and oriented Neck: supple, no lymphaden opathy Oral cavity: no lesions, mucosa m oist and WNL, poor dentition LABS 01/25/2024 Tilt table test results: PROCEDURE: Tilt Table Test REQUESTING PHYSICIAN: Maribell Banda MD INDICATION: Dizziness, unsteady gait. BETA BLOCKERS: Patient denies being on beta blockers, although metoprolol 25 mg daily is listed on her med list. PRE-TEST VITAL SIGNS (supine position): BP 171/88, HR 72 and sinus rhythm, O2sats 95%. PROCEDURE SUMMARY: Patient was prepped per protocol, IV started, connected to heart, blood pressure and oxygen saturation monitors. Safety straps were applied and she was then tilted upright at 70 degrees for a total of 30 minutes. When she was first raised upright she felt mildly dizzy for a couple of minutes, but after that, was basically asymptomatic. Immediately after being placed upright, her blood pressure karen to 185/108 and heart rate karen slightly to 77 bpm. After that, her BP gradually dropped, reaching a low of 150/98 after 20 minutes upright. This was not accompanied by any symptoms. Five minutes later her BP had risen to 167/96, and five minutes after that was 153/101. Her HR remained relatively unchanged during the test, ranging from a low of 72 bpm to a high of 80 bpm. Her heart rhythm was normal sinus throughout. Her O2sats stayed at 95-96% throughout. CONCLUSIONS: Finding suggest possible delayed orthostatic hypotension without any associated symptoms.
--- OUTSIDE RECORDS SUMMARY | 2024-03-20 05:15 | XMS_ITS ---
Author Organization [facility] Address [address] [facility] [address] [place] [id number] Care Team Providers Care Tube Cleaner Name Role Phone Meri Wadsworth Primary Care Provider Cherelle Borrego Unavailable [phone] Allergies Allergen (clinical drug ingredient) Drug/Non Drug Allergy documented on EMR Reaction Allergy Type Onset Date Status ciprofloxacin Cipro Hallucinations Drug Allergy Active Results Component Value Reference Range Notes CBC Venipuncture (in house) Reviewed date:03/20/2024 01:40:28 PM Interpretation: Performing Lab: Notes/Report: wbc 7.3 3.5 - 10 lymph 17.7 15 - 50 mid 6.0 2 - 15 gran 76.3 35 - 80 rbc 4.19 3.5 - 5.5 hgb 12.4 11.5 - 16.5 hct 37.0 35 - 55 mcv 88.2 75 - 100 mch 29.6 25 - 35 mchc 33.5 31 - 38 platlet 277 100 - 400 P-Comprehensive Metabolic Pa trina (CMP) Reviewed date:03/27/2024 09:00:41 AM Interpretation: Normal Performing Lab: Notes/Report: Test performed by [facility] , [address], [place] [address] Sly Pisano MD, Termite Control Representative CLIA: [id number] Sodium 142 135-145 mmol/L Potassium 4.2 3.5-5.3 mmol/L Chloride 106 97-108 mmol/L CO2 28 22-32 mmol/L Glucose 86 65-99 mg/dL BUN 13 8-23 mg/dL Creatinine 0.70 0.50-1.00 mg/dL Calcium 9.1 8.6-10.4 mg/dL eGFR by Creatinine 92 >59 mL/min/1.73m2 Protein 6.2 6.0-8.3 g/dL Albumin 3.8 3.5-5.3 g/dL Alkaline Phosphatase 97 35-121 IU/L ALT (SGPT) 9 <5-47 IU/L AST (SGOT) 13 <5-40 IU/L Bilirubin, Total 0.4 <0.2-1.2 mg/dL A/G Ratio 1.6 1.1-2.5 P-Lipid Panel Reviewed date:03/27/2024 09:00:11 AM Interpretation: Normal Performing Lab: Notes/Report: Test performed by [facility], [address] , [address] , [place] [address] Sly Pisano MD, Termite Control Representative CLIA: [id number] Cholesterol 158 <200 mg/dL Triglycerides 78 <150 mg/dL HDL Cholesterol 49 >39 mg/dL Cholesterol / HDL Ratio 3.22 0.00-4.44 Ratio Non-HDL Cholesterol 109 <130 mg/dL LDL Cholesterol (Calculation) 93 <130 mg/dL LDL Cholesterol Levels* Less than 100 mg/dL Optimal 100 to 129 mg/dL Near Optimal/ Above Optimal 130 to 159 mg/dL Borderline High 160 to 189 mg/dL High 190 mg/dL and above Very High * Categories as recommended by the 2004 ATPIII guidelines LDL/HDL Ratio 1.9 <3.3 Ratio LDL Cholesterol Patient History Test Date: 08/10/2023 LDL Results: 97 Units: mg/dL % Change: - Test Date: 03/20/2024 LDL Results: 93 Units: mg/dL % Change: -4% REASON FOR VISIT COUGHING Medications Medication SIG (Take, Route, Frequency, Duration) Notes Start Date End Date Status Pantoprazole Sodium 40 MG 1 tab(s) orall y once a day Active CoQ10 30 MG 1 cap(s) Orally once a day; Duration: 30 day(s) Active Clopidogrel Bisulfate 75 MG 1 tab(s) ora lly once a day; Duration: 30 day(s) Active Loratadine 10 MG 1 tablet Orally Once a day; Duration: 30 days 08/03/2023 Active Zithromax Z-Amadeo 250 MG 2 pills first day then one daily for 4 days orally as directed; Duration: 5 days 03/20/2024 Active Simvastatin 40 MG 1 tab(s) orally once a day (at bedtime); Duration: 30 day(s) Active Flonase Allergy Relief 50 MCG/ACT 1 spray in each nostril Nasally Once a day 08/03/2023 Active Nystatin-Triamcinolone 633297-6.1 UNIT/GM 1 application Externally tid; Duration: 30 days 01/30/2024 Active Caltrate 600+D Plus Minerals 600-800 MG-UNIT 1 tablet Orally once daily; Duration: 30 day(s) Active Vital Signs Weight 155.8 lbs 03/20/2024 Blood pressure systolic 110 mm Hg 03/20/20 24 Blood pressure diastolic 70 mm Hg 024 Heart Rate 75 /min 03/20/2024 Height 63 in 03/20/2024 BMI 27.60 kg/m2 03/20/2024 Encounters Encounter Location Date Provider Diagnosis [facility] [address] [place] [id number] 03/20/2024 Cherelle Borrego URI (upper respirato ry infection) J06.9 ; Mixed hyperlipidemia E78.2 ; Essential hypertension I10 and Bronchitis J40 Assessments Encounter Date Diagnosis (ICD Code) Assessment Notes Treatment Notes Treatment Clinical Notes Section Notes 03/20/2024 URI (upper respiratory infection) (ICD-10 - J06.9) fluids, rest, supportive measures for fever/symptom relief 03/20/2024 Mixed hyperlipidemia (ICD-10 - E78.2) 03/20/2024 Essential hypertension (ICD-10 - I10) 03/20/2024 Bronchitis (ICD-10 - J40) has decrease tobacco; encouraged to further decrease Plan Of Treatment Medication Medication Name Sig Start Date Stop Date Notes Zithromax Z-Amadeo 250 MG 2 pills first day then one daily for 4 days orally as directed; Duration: 5 days 03/20/2024 Treatment Notes Assessment Notes URI (upper respiratory infection) fluids , rest, supportive measures for fever/symptom relief Bronchitis has decrease tobacco ; encouraged to further decrease Next Appt Details Follow Up: will notify of te st results, Reason: Provider Name:Cherelle Darlin georges, 10/21/2025 10:00:00 AM, [address], [address], [place], [id number], Progress Notes * ZION MACKEYADOB: 2 (74 yo F)Acc No.[id number]:03/20/2024 Progress Notes Patient: MAHI HUNTER Provider: MICHELE Saha :1950 A ge:73 Y S ex:Female Date:03/20/2024 Address:[address] [address], [place], [id number] Pcp:Meri Wadsworth Subjective: * Chief Complaints: * 1 . COUGHING. * HPI: E NT/respiratory: 73 year old female presents with c/o cough P t is here today for c/o coughing. Pt sts the cough started a week ago and sts that her ears feel stopped up as well. c/o ear pain. c/o rhinorrhea. c/o post nasal drainage. c/o smoking 1 ppd. c/o dizziness b verónica. Denies : sore throat. D enies : Fever. D enies : facial pain/pressure. D enies : Chest Pain. D enies : Short of Breath. pt states that she has just completed an ABX for her ear. * ROS: D ERMATOLOGY: no R cristo. n o H maricarmen. E NT: Positive for n otes from ENT visit with Magi King [place] 11/30/2023 as follows: Plan 72-year-old female patient [...] is on disability. Past smoking status: yes, [id number]: , years:10 ,determination:. Occup. exposure: none. Recreational drug use: no. Alcohol: no. Sexually active: no.. Travel ouside [place]: no. * Medications: T aking Flonase Allergy Relief 50 MCG/ACT Suspension 1 spray in each nostril Nasally Once a day , Taking Caltrate 600+D Plus Minerals 600-800 MG-UNIT Tablet 1 tablet Orally once daily , Taking Nystatin-Triamcinolone 325992-6.1 UNIT/GM Cream 1 application Externally tid , Taking Simvastatin 40 MG Tablet 1 tab(s) orally once a day (at bedtime) , Taking Pantoprazole Sodium 40 MG Tablet Delayed Release 1 tab(s) orally once a day , Taking Clopidogrel Bisulfate 75 MG Tablet 1 tab(s) orally once a day , Taking CoQ10 30 MG Capsule 1 cap(s) Orally once a day , Taking Loratadine 10 MG Tablet 1 tablet Orally Once a day , Medication List reviewed and reconciled with the patient * Allergies: C ipro: Hallucinations. Objective: * Vitals: W t:155.8, Temp:98.6, BP:110/70, HR:75, O2 Sat:97% on RA, Nurse:ERIKA, Ht: 63, BMI:27.60. * Examination: G eneral Examination: General Appearance: N AD, appears healthy, alert, pleasant; walking well. H EENT: sclera and conjunctiva clear, PERRLA, TM's with fluid. O ral cavity: no lesions, mucosa moist and WNL, poor dentition. N fabricio: supple, no lymphadenopathy. H eart: RRR. L ungs: CTAB A&P; coughing with each inspiratory effort. N eurologic Exam: alert and oriented. d eclines trey exam. Assessment: * Assessment: 1. U RI (upper respiratory infection) - J06.9 (Primary) 2 . M ixed hyperlipidemia - E78.2 3 . E ssential hypertension - I10 4 . B ronchitis - J40 Plan: * Treatment: Value Reference Range w bc 7.3 3.5 - 10 * l ymph 17.7 15 - 50 * m id 6.0 2 - 15 * g ran 76.3 35 - 80 * r bc 4.19 3.5 - 5.5 * h gb 12.4 11.5 - 16.5 * h ct 37.0 35 - 55 * m cv 88.2 75 - 100 * m ch 29.6 25 - 35 * m chc 33.5 31 - 38 * p latlet 277 100 - 400 * Erica Byrnes 03/20/2024 11:14 :36 AM > , Provider reviewed results while patient in office.Elio Borregoine 03/20/2024 1:40:26 PM > Notes: fluids, rest, supportive measures for fever/symptom relief??2.?Mixed hyperlipidemia?LAB: P-Lipid Panel (Collection Date & Time - 03/20/2024 10:05 AM)?Normal* Value Reference Range C holesterol / HDL Ratio 3.22 0.00-4.44 - Ratio * C holesterol 158 <200 - mg/dL * H DL Cholesterol 49 >39 - mg/dL * L DL Cholesterol (Calculation) 93 <130 - mg/d L * L DL/HDL Ratio 1.9 <3.3 - Ratio * N on-HDL Cholesterol 109 <130 - mg/dL * T riglycerides 78 <150 - mg/dL * Elio Borregoine 03/27/2024 8:48:47 AM > , See encounter note 3.?Essential hypertension?LAB: P-Comprehensive Metabolic Panel (CMP) (Collection Date & Time - 03/20/2024 10:05 AM)?Normal* Value Reference Range A /G Ratio 1.6 1.1-2.5 - * A lbumin 3.8 3.5-5.3 - g/dL * A lkaline Phosphatase 97 35-121 - IU/L * A LT (SGPT) 9 <5-47 - IU/L * A ST (SGOT) 13 <5-40 - IU/L * B ilirubin, Total 0.4 <0.2-1.2 - mg/dL * B UN 13 8-23 - mg/dL * C alcium 9.1 8.6-10.4 - mg/dL * C hloride 106 97-108 - mmol/L * C O2 28 22-32 - mmol/L * C reatinine 0.70 0.50-1.00 - mg/dL * G lucose 86 65-99 - mg/dL * P otassium 4.2 3.5-5.3 - mmol/L * S odium 142 135-145 - mmol/L * P rotein 6.2 6.0-8.3 - g/dL * e GFR by Creatinine 92 >59 - mL/min/1.73m2 * Cherelle Borrego 03/27/2024 8:48:02 AM > , See encounter note 4.?Bronchitis? Start Zithromax Z-Amadeo Tablet, 250 MG, 2 pills first day then one daily for 4 days, orally, as directed, 5 days, 1, Refills 0.?? Notes: has decrease tobacco; encouraged to further decrease?? * Procedure Codes: 9 4760 [place], [address] CBC WITH AUTO DIFF, 32953 VENIPUNCT, ROUTINE* * Follow Up: w ill notify of test results * Images: Billing Information: * Visit Code: 13581 Office Visit, Est Pt., Level 3. * Procedure Codes: [address] [place]. [address] CBC WITH AUTO DIFF. 72401 VENIPUNCT, ROUTINE*. * Electronic signature of Dawna Borrego APRN on 05/13/2025 at 09:43 AM EST Sign off status: Pending * Provider: MICHELE Saha Date: Generated for Yumiko doran/Meliza/eTransmitting on: 07/13/2024 09:43 AM EST History and Physical Notes * HPI (History of Present Illness) Category Sub-Category Detail Notes Category Not es ENT/respiratory sore throat pt states th at she has just completed an ABX for her ear facial pain/pressure ear pain Short of Breath Chest Pain cough Pt is here today for c/o coughing. Pt sts the cough started a week ago and sts that her ears feel stopped up as well Fever post nasal drainage rhinorrhea smoking 1 ppd dizziness better Examination Category Sub-Category Detail Notes Category Not es General Examination HEENT: sclera and c onjunctiva clear, PERRLA, TM's with fluid declines trey exam Heart: RRR Lungs: CTAB A&P; coughing w ith each inspiratory effort General Appearance: NAD, appears healthy , alert, pleasant; walking well Neurologic Exam: alert and oriented Neck: supple, no lymphaden opathy Oral cavity: no lesions, mucosa m oist and WNL, poor dentition
--- OUTSIDE RECORDS SUMMARY | 2024-06-04 09:30 | XMS_ITS ---
Author Organization [facility] Address [address] [facility] [address] [place] [id number] Care Team Providers Care Barrel Polisher Inside Name Role Phone Meri Wadsworth Primary Care Provider Cherelle Borrego Unavailable [phone] Allergies Allergen (clinical drug ingredient) Drug/Non Drug Allergy documented on EMR Reaction Allergy Type Onset Date Status ciprofloxacin Cipro Hallucinations Drug Allergy Active REASON FOR VISIT personal Medications Medication SIG (Take, Route, Frequency, Duration) Notes Start Date End Date Status Loratadine 10 MG 1 tablet Orally Once a day; Duration: 30 days 08/03/2023 Active CoQ10 100 MG 1 cap(s) Orally once a day; Duration: 90 days Active Caltrate 600+D Plus Minerals 600-800 MG-UNIT 1 tablet Orally once daily; Duration: 90 days Active Pantoprazole Sodium 40 MG 1 tab(s) orall y once a day; Duration: 90 days Active Simvastatin 40 MG 1 tab(s) orally once a day (at bedtime); Duration: 90 day(s) Active Clopidogrel Bisulfate 75 MG 1 tab(s) ora lly once a day; Duration: 30 day(s) Active Nystatin-Triamcinolone 860225-6.1 UNIT/GM 1 application Externally tid; Duration: 30 days 01/30/2024 Active Flonase Allergy Relief 50 MCG/ACT 1 spray in each nostril Nasally Once a day; Duration: 30 days 08/03/2023 Active Ketoconazole 2 % 1 Externally Twice a day; Duration: 30 day(s) 06/04/2024 Active Vital Signs Weight 163.2 lbs 06/04/2024 Blood pressure systolic 130 mm Hg 06/04/20 24 Blood pressure diastolic 70 mm Hg 024 Heart Rate 103 /min 06/04/2024 Height 63 in 06/04/2024 BMI 28.91 kg/m2 06/04/2024 Encounters Encounter Location Date Provider Diagnosis [facility] [address] [facility] [address] [facility] [address] [place], [place] [id number] 06/04/2024 Cherelle Borrego Environmental allerg ies Z91.048 and Dermatitis fungal B36.9 Assessments Encounter Date Diagnosis (ICD Code) Assessment Notes Treatment Notes Treatment Clinical Notes Section Notes 06/04/2024 Environmental allergies (ICD-10 - Z91.048) to restart allergy meds 06/04/2024 Dermatitis fungal (ICD-10 - B36.9) will try this antifungal cream ; to keep clean nd dry Plan Of Treatment Medication Medication Name Sig Start Date Stop Date Notes Loratadine 10 MG 1 tablet Orally Once a day; Duration: 30 days 08/03/2023 Flonase Allergy Relief 50 MCG/ACT 1 spray in each nostril Nasally Once a day; Duration: 30 days 08/03/2023 Ketoconazole 2 % 1 Externally Twice a day; Duration: 30 day(s) 06/04/2024 Treatment Notes Assessment Notes Environmental allergies to restart aller gy meds Dermatitis fungal will try this antifu ngal cream ; to keep clean nd dry Next Appt Details Follow Up: prn, Reason: Provider Name:Cherelle georges, 10/21/2025 10:00:00 AM, [address] [facility] [address] [facility], [address], [place], [place], [id number], Progress Notes * ZION MACKEYADOB: 2 (74 yo F)Acc No.[id number]:06/04/2024 Progress Notes Patient: DOMINIC HUNTERNDA Provider: MICHELE Saha :1950 A ge:73 Y S ex:Female Date:06/04/2024 Address:[address] [place] [address], [place], [id number] Pcp:Meri Wadsworth Subjective: * Chief Complaints: * 1 . Personal. * HPI: D ermatology: 73 year old female presents with c/o knot P t sts she has a spot on her groin area that she would like looked at today. Pt sts it has been there for a while, but sts t hat it is getting worse. E NT/respiratory: c/o dizziness P t sts she has been getting dizzy again.? * ROS: D ERMATOLOGY: no R cristo. n o H maricarmen. G ASTROENTEROLOGY: no N ausea. n o V omiting. U ROLOGY: no D ifficulty urinating. n [...] is on disability. Past smoking status: yes, [id number]: , years:10 ,determination:. Occup. exposure: none. Recreational drug use: no. Alcohol: no. Sexually active: no.. Travel ouside [place]: no. * Medications: T aking Flonase Allergy Relief 50 MCG/ACT Suspension 1 spray in each nostril Nasally Once a day , Taking Nystatin-Triamcinolone 933829-8.1 UNIT/GM Cream 1 application Externally tid , Taking Clopidogrel Bisulfate 75 MG Tablet 1 tab(s) orally once a day , Taking Loratadine 10 MG Tablet 1 tablet Orally Once a day , Taking Simvastatin 40 MG Tablet 1 tab(s) orally once a day (at bedtime) , Taking Pantoprazole Sodium 40 MG Tablet Delayed Release 1 tab(s) orally once a day , Taking Caltrate 600+D Plus Minerals 600-800 MG-UNIT Tablet 1 tablet Orally once daily , Taking CoQ10 100 MG Capsule 1 cap(s) Orally once a day , Medication List reviewed and reconciled with the patient * Allergies: C ipro: Hallucinations. Objective: * Vitals: W t:163.2, Temp:98.2, BP:130/70, HR:103, O2 Sat:98% on RA, Nurse:ERIKA, Ht: 63, BMI:28.91. * Examination: E NT/Respiratory: General Appearance: well nourished and hydrated, NAD, alert, active. E yes: sclera and conjunctiva clear. E ars: auditory canals normal bilaterally, tympanic membranes normal bilaterally. O ral cavity : no erythema or exudate seen on pharynx. N fabricio : supple, no cervical lymphadenopathy. H eart : RRR. L ungs: CTAB A&P. G eneral Examination: Genitalia: lft outer labia with irritating appearne; no rash on papule below tender area; no erythema or edema or firm areas. Assessment: * Assessment: 1. E nvironmental allergies - Z91.048 (Primary) 2 . 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 D ermatitis fungal Start Ketoconazole Cream, 2 %, 1, Externally, Twice a day, 30 day(s), 1, Refills 1. Notes: will try this antifungal cream ; to keep clean nd dry * Procedure Codes: 9 4760 PULSE OX * Follow Up: p rn * Images: Billing Information: * Visit Code: 87421 Office Visit, Est Pt., Level 3. * Procedure Codes: 57005 PULSE OX. * Electronic signature of Dawna Borrego APRN on 05/13/2025 at 09:42 AM EST Sign off status: Pending * Provider: MICHELE Saha Date: 08/05/2023 Generated for Printi ng/Faxing/eTransmitting on: 07/13/2024 09:42 AM EST History and Physical Notes * HPI (History of Present Illness) Category Sub-Category Detail Notes Category Not es ENT/respiratory dizziness Pt sts she has been getti ng dizzy again Dermatology knot Pt sts she has a spot on her groin area that she would like looked at today. Pt sts it has been there for a while, but sts that it is getting worse Examination Category Sub-Category Detail Notes Category Not es ENT/Respiratory Oral cavity : no erythema or exudate s een on pharynx Ears: auditory canals norm al bilaterally, tympanic membranes normal bilaterally Neck : supple, no cervical lymphadenopathy Heart : RRR Lungs: CTAB A&P General Appearance: well nourished and h ydrated, NAD, alert, active Eyes: sclera and conjuncti va clear General Examination Genitalia: lft outer la terry with irritating appearne; no rash on papule below tender area; no erythema or edema or firm areas
--- OUTSIDE RECORDS SUMMARY | 2024-08-24 09:45 | XMS_ITS ---
[facility] Address [address] [place] [id number] Care Team Providers Care Swahili Teacher Name Role Phone Meri Wadsworth Primary Care Provider Leslie Delvalle Unavailable [phone] Allergies Allergen (clinical drug ingredient) Drug/Non Drug Allergy documented on EMR Reaction Allergy Type Onset Date Status ciprofloxacin Cipro Hallucinations Drug Allergy Active Reason For Referral Diagnosis 1 Abdominal wall herni a (K43.9) [facility] Referring Provider First Name Leslie Referring Provider Last Name Adelia Referring Provider Speciality Physician Bioinformatician Referred Provider General Surgery, . Referred Provider Specialty General Surg poppy General Notes Leslie Delvalle 2024 3:22:26 PM > Needs an appt with Andreina Weinstein Brynn 08/24/2024 3:59:54 PM > lvm for office to call me back to schedule lulutAndreina Brynn 08/27/2024 9:16:09 AM > 08/28/2024 at 10:00am; patient's daughter informed Referral Priority Routine REASON FOR VISIT rupture on her stomach Medications Medication SIG (Take, Route, Frequency, Duration) Notes Start Date End Date Status CoQ10 100 MG 1 cap(s) Orally once a day; Duration: 90 days Active Loratadine 10 MG 1 tablet Orally Once a day; Duration: 30 days 08/03/2023 Active Flonase Allergy Relief 50 MCG/ACT 1 spray in each nostril Nasally Once a day; Duration: 30 days 08/03/2023 Active Ketoconazole 2 % 1 Externally Twice a day; Duration: 30 day(s) 06/04/2024 Active Pantoprazole Sodium 40 MG 1 tab(s) orall y once a day; Duration: 90 days Active Caltrate 600+D Plus Minerals 600-800 MG-UNIT 1 tablet Orally once daily; Duration: 90 days Active Simvastatin 40 MG 1 tab(s) orally once a day (at bedtime); Duration: 90 day(s) Active Clopidogrel Bisulfate 75 MG 1 tab(s) ora lly once a day; Duration: 30 day(s) Active Cephalexin 500 MG 1 tablet Orally Two times a day; Duration: 7 days 08/24/2024 Active Nystatin-Triamcinolone 025038-6.1 UNIT/GM 1 application Externally tid; Duration: 30 days 01/30/2024 Active Vital Signs Weight 161.2 lbs 08/24/2024 Blood pressure systolic 130 mm Hg 08/25/19 25 Blood pressure diastolic 70 mm Hg 025 Heart Rate 78 /min 08/24/2024 Height 63 in 08/24/2024 BMI 28.55 kg/m2 08/24/2024 Encounters Encounter Location Date Provider Diagnosis [facility] [address] [place] [id number] 08/24/2024 Leslie Crowdy Abdominal wall herni a K43.9 and Folliculitis L73.9 Assessments Encounter Date Diagnosis (ICD Code) Assessment Notes Treatment Notes Treatment Clinical Notes Section Notes 08/24/2024 Abdominal wall hernia (ICD-10 - K43.9) 08/24/2024 Folliculitis (ICD-10 - L73.9) Plan Of Treatment Medication Medication Name Sig Start Date Stop Date Notes Cephalexin 500 MG 1 tablet Orally Two times a day; Duration: 7 days 08/24/2024 Referrals Referral Date Details 08/24/2024 08/24/2024, . Genera l Surgery Next Appt Details Follow Up: with Dr. Mccauley, Reason: Provider Name:Cherelle georges, 10/21/2025 10:00:00 AM, [address], [address], [place], [id number], Progress Notes * GO MACKEY: 2 (74 yo F)Acc No.[id number]:08/24/2024 Progress Notes Patient: MAHI HUNTER Provider: IDA Keene :1950 A ge:73 Y S ex:Female Date:08/24/2024 [address] [facility], [place], [id number] Pcp:Meri Wadsworth Subjective: * Chief Complaints: * 1 . Rupture on her stomach. * HPI: H PI: 73 year old female presents with c/o Patient is here today for?Pt sts she has a hernia in her stomach. When she had her last child she states she had to have a longitudinal and she states that scar broke open multiple times and she was hospitalized for quite a while. She has had a hernia for the past few years that is growing and becoming more painful. She also has some painful areas in the mons pubis area that she thinks may be infected.. * ROS: D ERMATOLOGY: no R cristo. [...] is on disability. Past smoking status: yes, [id number]: , years:10 ,determination:. Occup. exposure: none. Recreational drug use: no. Alcohol: no. Sexually active: no.. Travel ouside [place]: no. * Medications: T aking Nystatin-Triamcinolone 053853-2.1 UNIT/GM Cream 1 application Externally tid , Taking Clopidogrel Bisulfate 75 MG Tablet 1 tab(s) orally once a day , Taking Simvastatin 40 MG Tablet 1 tab(s) orally once a day (at bedtime) , Taking Caltrate 600+D Plus Minerals 600-800 MG-UNIT Tablet 1 tablet Orally once daily , Taking CoQ10 100 MG Capsule 1 cap(s) Orally once a day , Taking Ketoconazole 2 % Cream 1 Externally Twice a day , Taking Flonase Allergy Relief 50 MCG/ACT Suspension 1 spray in each nostril Nasally Once a day , Taking Loratadine 10 MG Tablet 1 tablet Orally Once a day , Taking Pantoprazole Sodium 40 MG Tablet Delayed Release 1 tab(s) orally once a day , Medication List reviewed and reconciled with the patient * Allergies: C ipro: Hallucinations. Objective: * Vitals: W t:161.2, Temp:98.5, BP:130/70, HR:78, O2 Sat:91% on RA, Nurse:johnathan, Ht: 63, BMI:28.55. * Examination: G eneral Examination: General Appearance: N AD. C hest: n ormal shape and expansion. H eart: R SR. L ungs: c lear to auscultation. A bdomen: bowel sounds present, soft, large hernia along mid-lower abdominal scar, pain with deep palpation. S kin: there are a few infected hair follicles in the mons pubis area. Assessment: * Assessment: 1. A bdominal wall hernia - K43.9 (Primary) 2 . F olliculitis - L73.9 ? Plan: * Treatment: 2. F olliculitis Start Cephalexin Tablet, 500 MG, 1 tablet, Orally, Two times a day, 7 days, 14 Tablet, Refills 0.? * Procedure Codes: G 2211 Complex e/m visit add on, 3075F SYST BP GE 130 - 139MM HG, 3078F DIAST BP < 80 MM HG * Follow Up: w haley Mccauley * Images: Billing Information: * Visit Code: 10729 Office Visit, Est Pt., Level 3. * Procedure Codes: G2211 Complex e/m visit add on. 3075F SYST BP GE 130 - 139MM HG. 3078F DIAST BP < 80 MM HG. * Electronic signature of IDA Starr on 05/13/2025 at 09:42 AM EST Sign off status: Pending * Provider: IDA Keene Date: 0 08/24/2024 Generated for Yumiko doran/Meliza/Jodismitting on: 1 07/13/2024 09:42 AM EST History and Physical Notes * HPI (History of Present Illness) Category Sub-Category Detail Notes Category Not es HPI Patient is here today for Pt sts she has a hernia in her stomach. When she had her last child she states she had to have a longitudinal and she states that scar broke open multiple times and she was hospitalized for quite a while. She has had a hernia for the past few years that is growing and becoming more painful. She also has some painful areas in the mons pubis area that she thinks may be infected. Examination Category Sub-Category Detail Notes Category Not es General Examination Heart: RSR Lungs: clear to auscultatio n Abdomen: bowel sounds present , soft, large hernia along mid-lower abdominal scar, pain with deep palpation General Appearance: NAD Skin: there are a few infe cted hair follicles in the mons pubis area Chest: normal shape and exp ansion Consultation Request Notes Referral Date Referring Provider Referred Provider Not es 08/24/2024 Leslie Delvalle General Surgery, .
--- OUTSIDE RECORDS SUMMARY | 2025-01-04 09:15 | XMS_ITS ---
Author Organization [facility] Address [address] [facility] [address] [place] [id number] Care Team Providers Care Overlock Operator Name Role Phone Meri Wadsworth Primary Care Provider Chivo Smith Unavailable [phone] Allergies Allergen (clinical drug ingredient) Drug/Non Drug Allergy documented on EMR Reaction Allergy Type Onset Date Status ciprofloxacin Cipro Hallucinations Drug Allergy Active Results Component Value Reference Range Notes Urinalysis - Inhouse Reviewed date:01/04/2025 10:18:34 PM Interpretation: Performing Lab: Notes/Report: Color/Clarity yellow Leuk 2+ Nitrite neg Urobili 3.2 Protein neg pH 6.0 Blood 1+ Sp. Gr. 1.015 Ketone neg Bili neg Gluc neg P-Culture, Urine Reviewed date:03/05/2025 12:31:02 PM Interpretation:Negative Performing Lab: Notes/Report: CLIA: [id number] Sly Pisano MD, [employer] [address] [place] [address] , [address], [place] [address] Test performed by [employer] Source Urine - Void Culture, Urine See Below Final Report : No Significant Growth Mammogram Reviewed date:03/05/2025 12:31:08 PM Interpretation:Negative Performing Lab: Notes/Report: Negative result negative REASON FOR VISIT left hip pain Medications Medication SIG (Take, Route, Frequency, Duration) Notes Start Date End Date Status Clopidogrel Bisulfate 75 MG 1 tab(s) ora lly once a day; Duration: 30 days Active CoQ10 100 MG 1 cap(s) Orally once a day; Duration: 90 days Active Lisinopril 5 MG 1 tablet Orally Once a day; Duration: 30 days 01/04/2025 Active Caltrate 600+D Plus Minerals 600-800 MG-UNIT 1 tablet Orally once daily; Duration: 90 days Active Pantoprazole Sodium 40 MG 1 tab(s) orall y once a day; Duration: 90 days Active Simvastatin 40 MG 1 tab(s) orally once a day (at bedtime); Duration: 90 days Active metroNIDAZOLE 500 MG 1 tablet Orally twi ce a day; Duration: 10 days 01/04/2025 Active Macrobid 100 MG 1 capsule with food Orally every 12 hrs; Duration: 5 days 01/04/2025 Active Flonase Allergy Relief 50 MCG/ACT 1 spray in each nostril Nasally Once a day; Duration: 30 days 08/03/2023 Active Loratadine 10 MG 1 tablet Orally Once a day; Duration: 30 days 08/03/2023 Active Problems Problem Type SNOMED Code ICD Code Onset Dates Problem Status W/U Status Risk Notes Problem Sciatica (40487665) Right sided sciatica (M54.31) Active confirmed Problem Chronic vaginitis (17007646) Chronic vaginitis (N76.1) Active confirmed Vital Signs Weight 168.6 lbs 01/04/2025 Blood pressure systolic 150 mm Hg 01/05/20 25 Blood pressure diastolic 82 mm Hg 025 Heart Rate 77 /min 01/04/2025 Height 63 in 01/04/2025 BMI 29.86 kg/m2 01/04/2025 Encounters Encounter Location Date [facility] [address] [facility] [address] [id number] 01/04/2025 Chivo Smith Acute UTI N39.0 ; Ri ght sided sciatica M54.31 ; Chronic vaginitis N76.1 ; Essential hypertension I10 ; Peripheral vascular disease I73.9 ; Breast cancer screening by mammogram Z12.31 ; Mixed hyperlipidemia E78.2 ; Tobacco abuse Z72.0 ; Chronic obstructive pulmonary disease, unspecified COPD type J44.9 and BMI 29.0-29.9,adult Z68.29 Assessments Encounter Date Diagnosis (ICD Code) Assessment Notes Treatment Notes Treatment Clinical Notes Section Notes 01/04/2025 Acute UTI (ICD-10 - N39.0) 01/04/2025 Right sided sciatica (ICD-10 - M54.31) 01/04/2025 Chronic vaginitis (ICD-10 - N76.1) 01/04/2025 Essential hypertension (ICD-10 - I10) Not at goal today 01/04/2025 Peripheral vascular disease (ICD-10 - I73.9) 01/04/2025 Breast cancer screening by mammogram (ICD-10 - Z12.31) 01/04/2025 Mixed hyperlipidemia (ICD-10 - E78.2) 01/04/2025 Tobacco abuse (ICD-10 - Z72.0) 01/04/2025 Chronic obstructive pulmonary disease, unspecified COPD type (ICD-10 - J44.9) 01/04/2025 BMI 29.0-29.9,adult (ICD-10 - Z68.29) Plan Of Treatment Medication Medication Name Sig Start Date Stop Date Notes Clopidogrel Bisulfate 75 MG 1 tab(s) ora lly once a day; Duration: 30 days Lisinopril 5 MG 1 tablet Orally Once a day; Duration: 30 days 01/04/2025 metroNIDAZOLE 500 MG 1 tablet Orally twi ce a day; Duration: 10 days 01/04/2025 Macrobid 100 MG 1 capsule with food Orally every 12 hrs; Duration: 5 days 01/04/2025 Treatment Notes Assessment Notes Essential hypertension Not at goal today Next Appt Details Follow Up: 4 Weeks fasting w ith Dr. Wadsworth, Reason: Provider Name:Cherelle georges, 10/21/2025 10:00:00 AM, [address] [facility], [address], [place], [place], [phone], Progress Notes * CANDIS MACKEYB: 2 (74 yo F)Acc No.[id number]:01/04/2025 Progress Notes Patient: DOMINIC HUNTERNDA Provider: Daniel Smith M.D. :1950 A ge:74 Y S ex:Female Date:01/04/2025 Address:[address] [place] [address] [address], [id number] Pcp:Meri Wadsworth Subjective: * Chief Complaints: * 1 . Left hip pain. * HPI: H ip/Thigh: 74 year old female presents with c/o hip pain P t is here today with c/o left hip. Pt sts the pain started a week ago and sts it has gotten worse. Pt sts the pain does go down to her knee. P t sts she thinks it is her kidneys and sts she believes she has blood in her urine. L ower back: c/o Low Back Pain P t sts the pain is in her lower back as well and sts it starts in her lower abdomen. D ermatology: c/o rash P t sts she does have a rash in her vaginal area as well. H PI: c/o Patient is here today for P t sts she needs all of her medications refilled . * ROS: D ERMATOLOGY: no R cristo. n o H maricarmen. G ASTROENTEROLOGY: no N ausea. n o V omiting. U ROLOGY: no D ifficulty urinating. n o B lood in urine. * Medical History: M igraine headache, HTN, Hyperlipidemia, PVD, Arthritis, Tobacco use disorder, Carotids 20-49% bilaterally 01/25/17, EF 55% on echo 01/25/17, Dexa 01/20/17 osteopenia, 3 cm infrarenal AAA 12/28/2019. * Surgical History: D enies Past Surgical History. * Hospitalization/Major Diagno stic Procedure: D enies Past Hospitalization. * Family History: F ather: 71 yrs, [...] is on disability. Past smoking status: yes, [id number]: , years:10 ,determination:. Occup. exposure: none. Recreational drug use: no. Alcohol: no. Sexually active: no.. Travel ouside [place]: no. * Medications: T aking Caltrate 600+D Plus Minerals 600-800 MG-UNIT Tablet 1 tablet Orally once daily , Taking CoQ10 100 MG Capsule 1 cap(s) Orally once a day , Taking Flonase Allergy Relief 50 MCG/ACT Suspension 1 spray in each nostril Nasally Once a day , Taking Loratadine 10 MG Tablet 1 tablet Orally Once a day , Taking Clopidogrel Bisulfate 75 MG Tablet 1 tab(s) orally once a day , Taking Simvastatin 40 MG Tablet 1 tab(s) orally once a day (at bedtime) , Taking Pantoprazole Sodium 40 MG Tablet Delayed Release 1 tab(s) orally once a day , Discontinued Nystatin-Triamcinolone 383920- 0.1 UNIT/GM Cream 1 application Externally tid , Discontinued Ketoconazole 2 % Cream 1 Externally Twice a day , Discontinued Cephalexin 500 MG Tablet 1 tablet Orally Two times a day , Medication List reviewed and reconciled with the patient * Allergies: C ipro: Hallucinations. Objective: * Vitals: W t: 168.6, Temp: 98.6, BP: 150/82, HR: 77, O2 Sat: 93% on RA, Nurse: johnathan, Ht: 63, BMI:29.86. * Examination: G eneral Examination: General Appearance: N AD. H eart: R SR. L ungs:?clear to auscultation. B ack: n o CVA tenderness. Assessment: * Assessment: 1. A cute UTI - N39.0 (Primary) 2 . R ight sided sciatica - M54.31 ? 3 . C hronic vaginitis - N76.1 4 . E ssential hypertension - I10? 5. P eripheral vascular disease - I73.9 6 . B reast cancer screening by mammogram - Z12.31 7 . M ixed hyperlipidemia - E78.2 8 . T obacco abuse - Z72.0 9 . C hronic obstructive pulmonary disease, unspecified COPD type - J44.9 1 0. B UT 29.0-29.9,adult - Z68.29 Plan: * Treatment: Value Reference Range C ulture, Urine See Below - * S pecimen Source Urine - Void - * Beatriz Oreilly 01/07/2025 03:49: 32 PM EDT > Tried to call pt, number is not reachableKing [facility] 01/09/2025 01:07:28 PM EDT > Tried to call pt, number is not reachableKing, [facility] 01/11/2025 01:08:10 PM EDT > Tried to call pt, number is not reachableKing [facility] 01/18/2025 03:26:53 PM EDT > Unable to reach pt after multiple attempts ?LAB: Urinalysis - Inhouse (Collection Date & Time - 01/04/2025)* Value Reference Range C olor/Clarity yellow * L euk 2+ * N itrite neg * U robili 3.2 * P rotein neg * p H 6.0 * B lood 1+ * S p. Gr. 1.015 * K etone neg * B jim neg * G corbin neg * Erica Byrnes 01/04/2025 02:5 0:04 PM EDT > Provider reviewed results while patient in office. 2.?Chronic vaginitis? Start metroNIDAZOLE Tablet, 500 MG, 1 tablet, Orally, twice a day, 10 days, 20 Tablet, Refills 0. ?3.?Essential hypertension? Start Lisinopril Tablet, 5 MG, 1 tablet, Orally, Once a day, 30 days, 30 Tablet, Refills 1.? Notes: Not at goal today??4.?Peripheral vascular disease? Refill Clopidogrel Bisulfate Tablet, 75 MG, 1 tab(s), orally, once a day, 30 days, 30, Refills 0. ?5.?Breast cancer screening by mammogram?Imaging: Mammogram (Performed Date - 01/11/2025)?Negative* Value Reference Range r esult negative * Yelitza Hdz 01/04/2025 03:1 1:34 PM EDT > faxed to [facility] Sandeep Beatriz 01/16/2025 04:06:51 PM EDT > Tried to call pt, call cannot be completed [facility] 01/18/2025 03:27:16 PM EDT > Unable to reach pt after multiple attempts * Procedure Codes: G 2211 Complex e/[place], [address] Urinalysis, no micro, G8420 BMI<30 AND >=22 CALC & DOCU, G8950 PREHTN/HTN BP DOC INDCD F/U DOC, G8753 MOST RECENT SYSTOLIC BP >= 140MM HG, G8754 MOST RECENT DIASTOLIC BP < 90MM HG * Follow Up: [address] Wadsworth * Images: Billing Information: * Visit Code: 17720 Office Visit, Est Pt., Level 4. * Procedure Codes: G2211 Complex e/[place]. [address] Urinalysis, no micro. G8420 BMI<30 AND >=22 CALC & DOCU. G8950 PREHTN/HTN BP DOC INDCD F/U DOC. G8753 MOST RECENT SYSTOLIC BP >= 140MM HG. G8754 MOST RECENT DIASTOLIC BP < 90MM HG. * Electronic signature of Marina Smith MD on 05/13/2025 at 09:42 AM EST Sign off status: Pending * Provider: Daniel Smith M.D. Date: 0 01/04/2025 Generated for Yumiko doran/Meliza/Adryanitting on: 07/13/2024 09:42 AM EST History and Physical Notes * HPI (History of Present Illness) Category Sub-Category Detail Notes Category Not es Dermatology rash Pt sts she does have a rash in her vaginal area as well Lower back Low Back Pain Pt sts the pain is in her lower back as well and sts it starts in her lower abdomen Hip/Thigh hip pain Pt is here today with c/o left hip. Pt sts the pain started a week ago and sts it has gotten worse. Pt sts the pain does go down to her knee. Pt sts she thinks it is her kidneys and sts she believes she has blood in her urine HPI Patient is here today for Pt sts she needs all of her medications refilled Examination Category Sub-Category Detail Notes Category Not es General Examination Heart: RSR Lungs: clear to auscultatio n General Appearance: NAD Back: no CVA tenderness
--- OUTSIDE RECORDS SUMMARY | 2025-02-11 09:00 | XMS_ITS ---
Author Organization [facility] Address [address] [facility] [facility] [address] [place] [id number] Care Team Providers Care Corporate Banking Officer Name Role Phone Meri Wadsworth Primary Care Provider Allergies Allergen (clinical drug ingredient) Drug/Non Drug Allergy documented on EMR Reaction Allergy Type Onset Date Status ciprofloxacin Cipro Hallucinations Drug Allergy Active REASON FOR VISIT 4 week f/u; blood work, due for colonoscopy/cologuard (negative Cologuard 2019) Encounters Encounter Location Date Provider Diagnosis [facility] [address] [facility] [address] [place] [id number] 02/11/2025 Meri Wadsworth Plan Of Treatment Next Appt Details Provider Name:Cherelle georges, 10/21/2025 10:00:00 AM, [address] [facility], [address], [place], [phone], Progress Notes * CANDIS MACKEYB: 2 (74 yo F)Acc No.[id number]:02/11/2025 Progress Notes Patient: DOMINIC HUNTERNDA Provider: Meri Wadsworth M.D. :1950 A ge:74 Y S ex:Female Date:02/11/2025 Address:[address], [id number] Subjective: * Chief Complaints: * 1 . 4 week f/u; blood work. 2. due for colonoscopy/cologuard (negative Cologuard 2019). * ROS: D ERMATOLOGY: no R cristo. [...] is on disability. Past smoking status: yes, URI2inmb: , years:10 ,determination:. Occup. exposure: none. Recreational drug use: no. Alcohol: no. Sexually active: no.. Travel ouside [place]: no. * Allergies: C ipro: Hallucinations. Objective: * Vitals: Assessment: Plan: * Treatment: * Images: Billing Information: * Visit Code: * Procedure Codes: * Electronic signature of Meri Wadsworth MD on 05/13/2025 at 09:43 AM EST Sign off status: Pending * Provider: Meri Wadsworth M.D. Date: 0 02/11/2025 Generated for Yumiko doran/Meliza/Cori on: 07/13/2024 09:43 AM EST
--- OUTSIDE RECORDS SUMMARY | 2025-04-23 05:00 | XMS_ITS ---
Author Organization [facility] Address [address] [place] [id number] Care Team Providers Care Desk Assistant Name Role Phone Meri Wadsworth Primary Care Provider Cherelle Borrego Unavailable [phone] Allergies Allergen (clinical drug ingredient) Drug/Non Drug Allergy documented on EMR Reaction Allergy Type Onset Date Status ciprofloxacin Cipro Hallucinations Drug Allergy Active Results Component Value Reference Range Notes CBC Venipuncture (in house) (Not yet reviewed by provider) Interpretation: Performing Lab: Notes/Report: wbc 7.0 3.5 - 10 lymph 18.7% 15 - 50 mid 6.2% 2 - 15 gran 75.1% 35 - 80 rbc 4.45 3.5 - 5.5 hgb 13.2 11.5 - 16.5 hct 39.6 35 - 55 mcv 89.0 75 - 100 mch 29.8 25 - 35 mchc 33.5 31 - 38 platlet 315 100 - 400 P-Comprehensive Metabolic Pa trina (CMP) (Not yet reviewed by provider) Interpretation:Normal Performing Lab: Notes/Report: Test performed by [employer] [facility] , [address], [place] [address] Sly Pisano MD, Kitchen Operator CLIA: [id number] Sodium 132 135-145 mmol/L Potassium 4.3 3.5-5.3 mmol/L Chloride 97 97-108 mmol/L CO2 25 20-32 mmol/L Glucose 83 65-99 mg/dL BUN 11 8-23 mg/dL Creatinine 0.67 0.50-1.00 mg/dL Calcium 9.2 8.6-10.4 mg/dL eGFR by Creatinine 92 >59 mL/min/1.73m2 Protein 6.4 6.0-8.3 g/dL Albumin 4.2 3.5-5.3 g/dL Alkaline Phosphatase 90 35-121 IU/L ALT (SGPT) 11 <5-47 IU/L AST (SGOT) 14 <5-40 IU/L Bilirubin, Total 0.5 <0.2-1.2 mg/dL A/G Ratio 1.9 1.1-2.5 P-Lipid Panel (Not yet revie wed by provider) Interpretation:LDL81;HDL56;TG 71 Performing Lab: Notes/Report: Test performed by [employer] [address] [place] [address] , [facility], [place] [address] Sly Pisano MD, Kitchen Operator CLIA: [id number] Lipid Panel Footnote See Below *Based on optimal reference values. Please refer to the DOS for additional information regarding diagnostic lipid reference ranges, patient management based on the recently updated lipid guidelines ([place] College [employer] Cardiology/[place] Heart Association Task Force on Clinical Practice Guidelines (2018), and pediatric diagnostic lipid reference values (<18 years old). Total Cholesterol 150 <200 mg/dL Triglycerides 71 <150 mg/dL HDL Cholesterol 55 >50 mg/dL Total Cholesterol / HDL Ratio* 2.73 <3.99 Rati o Non-HDL Cholesterol 95 <130 mg/dL LDL Cholesterol (Calculation) 81 <100 mg/dL LDL / HDL Ratio* 1.47 <1.99 Ratio LDL Cholesterol Patient History Test Date: 08/10/2023 LDL Results: 97 Units: mg/dL % Change: - Test Date: 03/20/2024 LDL Results: 93 Units: mg/dL % Change: -4% Test Date: 04/23/2025 LDL Results: 81 Units: mg/dL % Change: -12% REASON FOR VISIT AWV and knee pain Medications Medication SIG (Take, Route, Frequency, Duration) Notes Start Date End Date Status Lisinopril 5 MG 1 tablet Orally Once a day; Duration: 90 days 01/04/2025 Active Simvastatin 40 MG 1 tab(s) orally once a day (at bedtime); Duration: 90 days Active Loratadine 10 MG 1 tablet Orally Once a day; Duration: 90 days 08/03/2023 Active Pantoprazole Sodium 40 MG 1 tab(s) orall y once a day; Duration: 90 days Active Clopidogrel Bisulfate 75 MG 1 tab(s) ora lly once a day; Duration: 90 days Active CoQ10 100 MG 1 cap(s) Orally once a day; Duration: 90 days Active Flonase Allergy Relief 50 MCG/ACT 1 spray in each nostril Nasally Once a day; Duration: 30 days 08/03/2023 Active Caltrate 600+D Plus Minerals 600-800 MG-UNIT 1 tablet Orally once daily; Duration: 90 days Active Problems Problem Type SNOMED Code ICD Code Onset Dates Problem Status W/U Status Risk Notes Problem Body mass index 30+ - obesity ([id number]) BMI 30.0-30.9,a dult (Z68.30) Active confirmed Vital Signs Weight 169.6 lbs 04/23/2025 Blood pressure systolic 132 mm Hg 04/23/20 25 Blood pressure diastolic 72 mm Hg 025 Heart Rate 74 /min 04/23/2025 Height 63 in 04/23/2025 BMI 30.04 kg/m2 04/23/2025 Encounters Encounter Location Date Provider Diagnosis [facility] [address] [place], [place] [id number] 04/23/2025 Cherelle Borrego Mixed hyperlipidemia E78.2 ; Adult general medical examination Z00.00 ; Peripheral vascular disease I73.9 ; Essential hypertension I10 ; GERD (gastroesophageal reflux disease) K21.9 ; 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, unspecified vessel or lesion type, unspecified whether confederated salish or transplanted heart I25.111 ; Tobacco abuse Z72.0 ; Osteopenia M85.80 ; Chronic obstructive pulmonary disease, unspecified COPD type J44.9 ; Environmental allergies Z91.048 and BMI 30.0-30.9,adult Z68.30 Assessments Encounter Date Diagnosis (ICD Code) Assessment Notes Treatment Notes Treatment Clinical Notes Section Notes 04/23/2025 Mixed hyperlipidemia (ICD-10 - E78.2) 04/23/2025 Adult general medical examination (ICD-10 - Z00.00) Patient instructed to return to office Annually for Annual Wellness Visits to include annual screenings of Pain assessment, Functional Ability assessment, Cognitive Ability assessment, Fall Risk assessment, Depression screening and Bladder control screening. 04/23/2025 Peripheral vascular disease (ICD-10 - I73.9) 04/23/2025 Essential hypertension (ICD-10 - I10) 04/23/2025 GERD (gastroesophageal reflux disease) (ICD-10 - K21.9) 04/23/2025 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, unspecified vessel or lesion type, unspecified whether confederated salish or transplanted heart (ICD-10 - I25.111) 04/23/2025 Tobacco abuse (ICD-10 - Z72.0) 04/23/2025 Osteopenia (ICD-10 - M85.80) 04/23/2025 Chronic obstructive pulmonary disease, unspecified COPD type (ICD-10 - J44.9) 04/23/2025 Environmental allergies (ICD-10 - Z91.048) 04/23/2025 BMI 30.0-30.9,adult (ICD-10 - Z68.30) Plan Of Treatment Medication Medication Name Sig Start Date Stop Date Notes Lisinopril 5 MG 1 tablet Orally Once a day; Duration: 90 days 01/04/2025 Simvastatin 40 MG 1 tab(s) orally once a day (at bedtime); Duration: 90 days Loratadine 10 MG 1 tablet Orally Once a day; Duration: 90 days 08/03/2023 Pantoprazole Sodium 40 MG 1 tab(s) orall y once a day; Duration: 90 days Clopidogrel Bisulfate 75 MG 1 tab(s) ora lly once a day; Duration: 90 days Treatment Notes Assessment Notes Adult general medical examination Patien t instructed to return to office Annually for Annual Wellness Visits to include annual screenings of Pain assessment, Functional Ability assessment, Cognitive Ability assessment, Fall Risk assessment, Depression screening and Bladder control screening. Pending Test Test Name Order Date CBC Venipuncture (in house) 04/23/2025 P-Comprehensive Metabolic Panel (CMP) P-Lipid Panel 04/23/2025 Next Appt Details Follow Up: As directed by , Reason: Provider Name:Cherelle georges, 10/21/2025 10:00:00 AM, [address] [facility] [address] [facility], [address], [place], [place], [phone], Progress Notes * CANDIS MACKEYB: 2 (74 yo F)Acc No.[id number]:04/23/2025 Annual Wellness Visit Patient: Ran ZHANGMAHI JACKSON Provider: MICHELE Saha :1950 A ge:74 Y S ex:Female Date:04/23/2025 Address:[address] [place] [address], [facility] Pcp:Meri Wadsworth Subjective: * Chief Complaints: * 1 . AWV and knee pain. * HPI: H PI: form completed to include Annual Wellness visit Questionnaire, Mclaughlin Index of independence in ADL's, pain rating scale, patient health questionnaire-9 (POH- 9), and preventative services; she forms scanned into EMR. 74 year old female presents with c/o Patient is here today for?a [employer] Annual Wellness Visit. Pt states she fell yesterday and hurt left knee. Pt is fasting except for a cup of black coffee. * ROS: D ERMATOLOGY: no R cristo. n o H maricarmen. G ASTROENTEROLOGY: no N ausea. n o V omiting. n o D iarrhea.? O PTHALMOLOGY: Negative for d enies vision issues. U ROLOGY: no D ifficulty urinating. n [...] is on disability. Past smoking status: yes, [id number]: , years:10 ,determination:. Occup. exposure: none. Recreational [...] tab(s) orally once a day , Taking Lisinopril 5 MG Tablet 1 tablet Orally Once a day , Discontinued Macrobid 100 MG Capsule 1 capsule with food Orally every 12 hrs , Discontinued metroNIDAZOLE 500 MG Tablet 1 tablet Orally twice a day , Medication List reviewed and reconciled with the patient * Allergies: C ipro: Hallucinations. Objective: * Vitals: W t: 169.6, Temp: 98.2, BP: 132/72, HR: 74, O2 Sat: 99% on RA, Nurse: THOMPSON, Ht: 63, BMI:30.04. * Examination: G eneral Examination: General Appearance: N AD, alert, pleasant, well nourished and hydrated. H EENT: s clera and conjunctiva clear, PERRLA, TM's normal, translucent. O ral cavity: m ucosa moist and WNL, no erythema. N fabricio: s upple, no lymphadenopathy, no carotid bruits, no thyromegaly. H eart: R RR. L ungs: C TAB A&P. A bdomen:?bowel sounds present, soft and nontender. N eurologic Exam: a lert and oriented. E xtremities: n o leg edema;. K nee / Zamora: Knee: l eft. I nspection: e ffusion: mild, no ecchymosis. R saturnino of motion: n ormal flexion and extension. * Physical Examination: G ENERAL: Pain Assessment: P ain level: , on a scale of 0-10 (with 10 being extreme pain). F unctional Status Assessment: P atient response to question of how often physical health interferes with daily activities: . Able to perform ADLs-including meal preparation, grocery shopping, housework, laundry, taking medications or handling finances. Cognitive Status: alert and oriented. Ambulation Status: Fully ambulatory . F all Risk Assessment: I ndependant in ambulation, adequate lighting in home. Patient has NOT fallen or had trouble walking within the past 12 months. D epression Screening: Dilan mckeonies depressed mood or anxiety. Describes emotional health as:. B ladder Control Screening: Dilan mckeonies problems. Assessment: * Assessment: 1. A dult general medical examination - Z00.00 (Primary) 2 . M ixed hyperlipidemia - E78.2 3 . P eripheral vascular disease - I73.9 4 .?Essential hypertension - I10 5 . G ERD (gastroesophageal reflux disease) - K21.9 6 . C oronary artery disease with angina pectoris with documented spasm, unspecified vessel or lesion type, unspecified whether confederated salish or transplanted heart - I25.111 7 . T obacco abuse - Z72.0 8 . O steopenia - M85.80 9 . C hronic obstructive pulmonary disease, unspecified COPD type - J44.9 1 0.?Environmental allergies - Z91.048 1 1. B NV 30.0-30.9,adult - Z68.30 ? Plan: * Treatment: 2. M ixed hyperlipidemia Refill Simvastatin Tablet, 40 MG, 1 tab(s), orally, once a day (at bedtime), 90 days, 90, Refills 1. L AB: P-Lipid Panel (Collection Date & Time - 04/23/2025 10:07 AM) L DL81;HDL56;TG 71 Value Reference Range C holesterol / HDL Ratio 2.73 <3.99 - Ratio * C holesterol 150 <200 - mg/dL * H DL Cholesterol 55 >50 - mg/dL * L DL Cholesterol (Calculation) 81 <100 - mg/d L * L DL/HDL Ratio 1.47 <1.99 - Ratio * N on-HDL Cholesterol 95 <130 - mg/dL * T riglycerides 71 <150 - mg/dL * L ipid Panel Footnote See Below - 3.?Peripheral vascular disease? Refill Clopidogrel Bisulfate Tablet, 75 MG, 1 tab(s), orally, once a day, 90 days, 90 Tablet, Refills 1.??4.?Essential hypertension? Refill Lisinopril Tablet, 5 MG, 1 tablet, Orally, Once a day, 90 days, 90 Tablet, Refills 1.?LAB: P-Comprehensive Metabolic Panel (CMP) (Collection Date & Time - 04/23/2025 10:07 AM)?Normal* Value Reference Range A /G Ratio 1.9 1.1-2.5 - * A lbumin 4.2 3.5-5.3 - g/dL * A lkaline Phosphatase 90 35-121 - IU/L * A LT (SGPT) 11 <5-47 - IU/L * A ST (SGOT) 14 <5-40 - IU/L * B ilirubin, Total 0.5 <0.2-1.2 - mg/dL * B UN 11 8-23 - mg/dL * C alcium 9.2 8.6-10.4 - mg/dL * C hloride 97 97-108 - mmol/L * C O2 25 20-32 - mmol/L * C reatinine 0.67 0.50-1.00 - mg/dL * G lucose 83 65-99 - mg/dL * P otassium 4.3 3.5-5.3 - mmol/L * S odium 132 L 135-145 - mmol/L * P rotein 6.4 6.0-8.3 - g/dL * e GFR by Creatinine 92 >59 - mL/min/1.73m2 5.?GERD (gastroesophageal reflux disease)? Refill Pantoprazole Sodium Tablet Delayed Release, 40 MG, 1 tab(s), orally, once a day, 90 days, 90Tablet, Refills 1.?LAB: CBC Venipuncture (in house) (Collection Date & Time - 04/23/2025)* Value Reference Range w bc 7.0 3.5 - 10 * l ymph 18.7% 15 - 50 * m id 6.2% 2 - 15 * g ran 75.1% 35 - 80 * r bc 4.45 3.5 - 5.5 * h gb 13.2 11.5 - 16.5 * h ct 39.6 35 - 55 * m cv 89.0 75 - 100 * m ch 29.8 25 - 35 * m chc 33.5 31 - 38 * p latlet 315 100 - 400 * Flaca Estrada 04/23/2025 12: 05:05 PM EST >Cherelle Borrego 04/24/2025 02:05:10 PM EST -wrong phone #Cherelle Borrego 04/29/2025 08:51:20 AM EST >called daughter Miriam with no answer or VM; [phone], Katharine 04/29/2025 04:01:26 PM EST >no answer when phoned 6.?Environmental allergies? Refill Loratadine Tablet, 10 MG, 1 tablet, Orally, Once a day, 90 days, 90 Tablet, Refills 1.? * Procedure Codes: G 0439 ANNUAL WELLNESS VST; PPS SUBSQT VST, G2211 Complex [place], [address] CBC WITH AUTO DIFF, 1090F PRES/ABSN URINE INCON ASSESS, 3288F FALL RISK ASSESSMENT DOCD, 1170F FXNL STATUS ASSESSED, 1126F AMNT PAIN NOTED NONE PRSNT, 1159F MED LIST DOCD IN RCRD, 1003F LEVEL OF ACTIVITY ASSESS, G8510 NEG SCR Depression PT NOT ELIG F/U/PLN DOC, G8950 PREHTN/HTN BP DOC INDCD F/U DOC, G8752 MOST RECENT SYSTOLIC BP < 140MM HG, G8754 MOST RECENT DIASTOLIC BP < 90MM HG, 3075F SYST BP GE 130 - 139MM HG, 3078F DIAST BP < 80 MM HG, 3017F COLORECTAL CA SCREEN DOC REV, G9899 Scrn tae perf rslts doc * Preventive Medicine: Counseling: E motional health: P atient encouraged to try connecting with family or friends to boost mood. B ladder control: M ethods of controlling or managing leakage of urine discussed. E xercise: P atient advised to start, increase or maintain level of exercise/physical activity. I njury prevention: F all prevention discussed. Discussed need for cane/walker. Potential trip hazards discussed. Immunizations: T etanus u p to date. Screening / Special Tests: M ammogram , Recent history: 01/11/2025, negative. C olonoscopy u e-ov-rvho-2023, Recent history: 07/[address] Mccauley, polyps, repeat 3 years. B one mineral Density R ecent history: 10/27/2021, osteopenia. L charles cancer screening 1 08/04/2022, ordered. * Follow Up: A s directed by * Images: Billing Information: * Visit Code: 01144 Office Visit, Est Pt., Level 3. Modifiers: 25 * Procedure Codes: G0439 ANNUAL WELLNESS VST; PPS SUBSQT VST. G2211 Complex e/[place]. [address] CBC WITH AUTO DIFF. 1090F PRES/ABSN URINE INCON ASSESS. 3288F FALL RISK ASSESSMENT DOCD. 1170F FXNL STATUS ASSESSED. 1126F AMNT PAIN NOTED NONE PRSNT. 1159F MED LIST DOCD IN RCRD. 1003F LEVEL OF ACTIVITY ASSESS. G8510 NEG SCR Depression PT NOT ELIG F/U/PLN DOC. G8950 PREHTN/HTN BP DOC INDCD F/U DOC. G8752 MOST RECENT SYSTOLIC BP < 140MM HG. G8754 MOST RECENT DIASTOLIC BP < 90MM HG. 3075F SYST BP GE 130 - 139MM HG. 3078F DIAST BP < 80 MM HG. 3017F COLORECTAL CA SCREEN DOC REV. G9899 Scrn tae perf rslts doc. * Electronic signature of Dawna Borrego APRN on 05/13/2025 at 09:43 AM EST Sign off status: Pending * Provider: MICHELE Saha Date: 06/23/2024 Generated for Yumiko doran/Meliza/Adryanitting on: 07/13/2024 09:43 AM EST History and Physical Notes * HPI (History of Present Illness) Category Sub-Category Detail Notes Category Not es HPI Patient is here today for a [employer] Annual Wellness Visit. Pt states she fell yesterday and hurt left knee. Pt is fasting except for a cup of black coffee Physical Examination Category Sub-Category Detail Notes Section Note s GENERAL Pain Assessment: Pain level: , o n a scale of 0-10 (with 10 being extreme pain) Functional Status Assessment: Patient response to question of how often physical health interferes with daily activities: . Able to perform ADLs-including meal preparation, grocery shopping, housework, laundry, taking medications or handling finances. Cognitive Status: alert and oriented. Ambulation Status: Fully ambulatory Fall Risk Assessment: Independant in amb ulation, adequate lighting in home. Patient has NOT fallen or had trouble walking within the past 12 months Depression Screening: Denies depressed m ood or anxiety. Describes emotional health as: Bladder Control Screening: Denies proble ms Examination Category Sub-Category Detail Notes Category Not es General Examination HEENT: sclera and c onjunctiva clear, PERRLA, TM's normal, translucent Heart: RRR Lungs: CTAB A&P Abdomen: bowel sounds present , soft and nontender Extremities: no leg edema; General Appearance: NAD, alert, pleasant , well nourished and hydrated Neurologic Exam: alert and oriented Neck: supple, no lymphaden opathy, no carotid bruits, no thyromegaly Oral cavity: mucosa moist and WNL , no erythema Knee / Zamora Knee: left Inspection: effusion: mild, no e cchymosis Range of motion: normal flexion and e xtension
--- NOTE | 2025-05-13 09:40 | CT_ITS ---
FINAL REPORT TECHNIQUE: Thin section axial images were obtained through the lungs using a low-dose technique per lung cancer screening protocol. Reconstruction images were obtained using the axial data. Exam was performed using dose reduction technique. This study was performed with techniques to keep radiation doses as low as reasonably achievable (ALARA). Individualized dose reduction techniques using automated exposure control or adjustment of mA and/or kV according to the patient's size were employed. CLINICAL HISTORY: SCREENING current smoker 1ppd x49 years COMPARISON: 06/03/2023 FINDINGS: CTDLvol: 2.90 DLP: 96.38 Current smoker 49 pack year history Lungs: No acute pulmonary abnormality. There is a right lower lobe 4 mm nodule, best seen on image #55 of series 4, stable. There is a 9 mm pleural-based ground glass appearing nodule in the right, also stable, best seen on image #41 of series 4. There is a 3 mm right upper lobe nodule best seen on image #19 of series 4, which may be calcified, also stable. No new areas of consolidation or nodularity are seen. Lymph nodes: No thoracic lymphadenopathy. Mediastinum: Heart size is normal. Prominent coronary artery calcifications are again noted, stable. Pleura/pericardium: No pleural or pericardial effusion. Other: No acute abnormality in the upper abdomen. IMPRESSION: Stable nodules when compared to the prior exam of 06/03/2023. Lung RADS: 2S, the S specification for coronary artery calcifications. Recommendation: 12-month follow-up LDCT Reviewed, Interpreted and Dictated by Veronica Capone MD Transcribed by Emmy Fry Authenticated and [facility]
--- OUTSIDE RECORDS SUMMARY | 2025-05-13 09:43 | XMS_ITS | Clinical Summary ---
Author Organization [facility] Address [address], [address] [place] [address] Care Team Providers Care Continuous Weld Pipe Mill Supervisor Name Role Phone System, Referring Not In [...] of Treatment Not on file Care Teams Continuous Weld Pipe Mill Supervisor Relationship Specialty Start Date End Date System, Referring Not In PCP - General 07/01/10
--- OUTSIDE RECORDS SUMMARY | 2025-05-13 09:43 | XMS_ITS | Clinical Summary ---
Author Organization [facility] Address [address] [place] [address] Care Team Providers Care Timekeeping Supervisor Name Role Phone Thai Wadsworth MD Primary Care Provider [phone] Family History Medical History Relation Name Comments [...] Screening 1950 [facility]-Medicare Annual Wellness (AWV) 1950 [facility]-/Child/Adol SDOH Screenings 1950 [facility]- SDOH Screenings 12/03/1969 [facility]-Adult SDOH Screenings 12/03/1969 CT Colonography 12/03/1996 Colonoscopy 12/03/1996 FIT-DNA 12/03/1996 FIT 12/03/1996 FOBT 12/03/1996 Sigmoidoscopy 12/03/1996 [facility]-Colorectal Cancer Screening 12/03/1996 [facility]-Breast Cancer Screening 12/03/2001 [facility]-Zoster Vaccines (1 of 2) 12/03/2001 [id number] Vaccine (1 - 2024- season) 2025 [facility]-Influenza Vaccine (#1) 2025 [facility]-RSV Vaccine: 60+ [...] this topic Insurance [employer] MED[employer] Care Teams Timekeeping Supervisor Relationship Specialty Start Date End Date Thai Wadsworth MD [address] [place] [address] PCP - General 10/31/20
--- OUTSIDE RECORDS SUMMARY | 2025-05-13 09:43 | XMS_ITS | Clinical Summary ---
Author Organization [facility] Address [facility] [place] [address] Care Team Providers Care Fire Tower Keeper Name Role Phone Unavailable Primary Care Provider [...] therelease of HIV test results or diagnoses. [id number] Social History Tobacco Use Types Packs/Day Years Used Date Smoking Tobacco: Never Assessed Comments Unknown Sex and Gender Information Value Date Recorded Sex Assigned at Not on file Legal Sex Female 10:53 PM EST Gender Identity Not on file Sexual Orientation Not on file Plan of Treatment Not on file
--- OUTSIDE RECORDS SUMMARY | 2025-05-13 09:43 | XMS_ITS | Patient Health Record ---
Author Organization [facility] Address [address] [facility] [address] [place] [id number] Care Team Providers Care Mica Paster Name Role Phone Meri Wadsworth Primary Care Provider LuisChivo Unavailable [phone] Salima Cherelle Unavailable [phone] Leslie Delvalle Unavailable [phone] Allergies Allergen (clinical drug ingredient) Drug/Non Drug [...] date:03/05/2025 12:31:02 PM Interpretation:Negative Performing Lab: Notes/Report: Test performed by [facility] [address] [place] [address] , [address], [place] [address] Sly Pisano MD, [employer] CLIA: [id number] Specimen Source Urine - Void Culture, Urine See Below Final Report : No Significant Growth Mammogram Reviewed date:03/05/2025 12:31:08 PM Interpretation:Negative Performing Lab: Notes/Report: Negative result negative CBC Venipuncture (in house) (Not yet reviewed [...] Interpretation:Normal Performing Lab: Notes/Report: Test performed by [facility] [address] [place] [address] , [address], [place] [address] Sly Pisano MD, [employer] CLIA: [id number] Sodium 132 135-145 mmol/L Potassium 4.3 3.5-5.3 [...] 71 Performing Lab: Notes/Report: Test performed by [facility] [address] [place] [address] , [address], [place] [address] Sly Pisano MD, [employer] CLIA: [id number] Lipid Panel Footnote See Below *Based on optimal reference values. Please refer to the DOS for additional information regarding diagnostic lipid reference ranges, patient management based on the recently updated lipid guidelines ([place] [employer]/[place] [employer] Task Force on Clinical Practice Guidelines (2018), and pediatric diagnostic lipid reference values (<18 years old). Total Cholesterol 150 <200 mg/dL Triglycerides 71 <150 mg/dL HDL Cholesterol 55 >50 mg/dL Total Cholesterol / HDL Ratio* 2.73 <3.99 Ratio Non-HDL Cholesterol 95 <130 mg/dL LDL Cholesterol (Calculation) 81 <100 mg/dL LDL / HDL Ratio* 1.47 <1.99 Ratio LDL Cholesterol Patient History Test Date: 08/10/2023 LDL Results: 97 Units: mg/dL % Change: - Test Date: 03/20/2024 LDL Results: 93 Units: mg/dL % Change: -4% Test Date: 04/23/2025 LDL Results: 81 Units: mg/dL % Change: -12% Medications Medication SIG (Take, Route, Frequency, Duration) Notes Start Date End Date Status Lisinopril 5 MG 1 tablet Orally Once a day; Duration: 90 days 01/04/2025 Active CoQ10 100 MG 1 cap(s) Orally once a day; Duration: 90 days Active Flonase Allergy Relief 50 MCG/ACT 1 spray in each nostril Nasally Once a day; Duration: 30 days 08/03/2023 Active Simvastatin 40 MG 1 tab(s) orally [...] Orally once daily; Duration: 90 days Active Immunizations Vaccine Route Administration Date Status Comme nts Tetanus Tdap-Adacel (over 7yrs) IM Intramuscular 01/11/2017 Administered Prevnar (PCV13) IM Intramuscular 01/11/2017 Administered PNEUMOVAX 23 VACCINE IM Intramuscular 01/29/2020 Administe red Fluzone Quad (6months&older) IM Intramuscular 07/12/2016 Administered Fluzone High Dose (65yr and older) IM Intramuscular 07/17/2018 Administered Fluzone High Dose (65yr and older) IM Intramuscular 03/25/2020 Administered Problems Problem Type SNOMED Code ICD Code Onset Dates Problem Status W/U Status Risk Notes Problem Gastroesophageal reflux disease (772248683) GERD (gastroesophageal reflux disease) (K21.9) Active confirmed Problem Tobacco abuse (1326855152) Tobacco abuse (Z72.0) Active confirmed Problem Essential hypertension (11559991) Essential hypertension (I10) Active confirmed Problem Constipation (90032164) Constipation (K59.00) Active confirmed Problem Arthritis (0929444) Arthritis (M19.90) Active c onfirmed Problem Environmental allergy (349299597) Environmental allergies (Z91.048) Active confirmed Problem Body mass index 30+ - obesity (354335730) BMI 30.0-30.9,adult (Z68.30) Active confirmed Problem Lichen simplex chronicus (disorder) (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 (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) Active confirmed Problem Mixed hyperlipidemia (008766823) Mixed hyperlipidemia (E78.2) Active confirmed Problem Tobacco user (207063537) Nicotine dependence, cigarettes, uncomplicated (F17.210) Active confirmed Problem Migraine without aura, not refractory (disorder) (708012051) Migraine, unspecified, not intractable, without status migrainosus (G43.909) Active confirmed Problem Fibrocystic breast changes (84897188) Diffuse cystic mastopathy of right breast (N60.11) Active confirmed Problem Fibrocystic breast changes (85621494) Diffuse cystic mastopathy of left breast (N60.12) Active confirmed Problem Malignant tumor of colon (858391516) Colon cancer (C18.9) Active confirmed Problem Arteriosclerotic vascular disease (81004336) Arteriosclerotic cardiovascular disease (I25.10) Active confirmed Problem Peripheral vascular disease (839154645) Peripheral vascular disease (I73.9) Active confirmed Problem Mammography abnormal (668015132) Abnormal mammogram of left breast (R92.8) Active confirmed Problem COPD - Chronic obstructive pulmonary disease (22186116) Chronic obstructive pulmonary disease, unspecified COPD type (J44.9) Active confirmed Problem Disorder of breast (18956251) Breast disorder (N64.9) Active confirmed Problem Lower abdominal pain (33832751) Lower abdominal pain (R10.30) Active confirmed Problem Dermatitis (275924882) Dermatitis (L30.9) Active confirmed Problem Chronic vaginitis (97315096) Chronic vaginitis (N76.1) Active confirmed Problem Ataxia (38481307) Ataxia (R27.0) Active confirm ed Problem Sciatica (01320371) Right sided sciatica (M54.31) Active confirmed Problem Body mass index 30.00 to 34.99 (015679544012722) BMI 31.0-31.9,adult (Z68.31) Active confirmed Problem Chronic pain (71371701) Chronic pain (G89.29) Active confirmed Problem Atherosclerotic heart disease of [place] coronary artery without angina pectoris (125709496402664) Atherosclerosis of [place] coronary artery without angina pectoris, unspecified whether [place] or transplanted heart (I25.10) Active confirmed Problem Occlusion and stenosis of multiple and bilateral cerebral arteries (514949282) Bilateral carotid artery stenosis (I65.23) Active confirmed Problem Disorder of carotid artery (disorder) (467268002) Carotid artery disease, unspecified laterality (I77.9) Active confirmed Problem Hearing loss (35597712) Hearing loss, unspecified hearing loss type, unspecified laterality (H91.90) Active confirmed Problem Osteopenia (230435870) Osteopenia, unspecified location (M85.80) Active confirmed Problem 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, unspecified vessel or lesion type, unspecified whether [place] or transplanted heart (I25.111) Active confirmed Problem Fibrocystic breast changes (04418653) Fibrocystic breast disease (FCBD), unspecified laterality (N60.19) Active confirmed Vital Signs Heart Rate 74 /min 04/23/2025 Blood pressure diastolic 72 mm Hg 04/23/2025 Height 63 in 04/23/2025 Blood pressure systolic 132 mm Hg 04/23/2025 Weight 169.6 lbs 04/23/2025 BMI 30.04 kg/m2 04/23/2025 Encounters Encounter Location Date Provider Diagnosis [facility] [address] [facility] [address] [place], [place] [id number] 06/04/2024 Cherelle Borrego Environmental allerg ies Z91.048 and Dermatitis fungal B36.9 [facility] [address] [place], [place] [id number] 08/24/2024 Leslie Crowdy Abdominal wall herni a K43.9 and Folliculitis L73.9 [facility] [address] [place], [place] [id number] 01/04/2025 Chivo [place] Acute UTI N39.0 ; Ri ght sided sciatica M54.31 ; Chronic vaginitis N76.1 ; Essential hypertension I10 ; Peripheral vascular disease I73.9 ; Breast cancer screening by mammogram Z12.31 ; Mixed hyperlipidemia E78.2 ; Tobacco abuse Z72.0 ; Chronic obstructive pulmonary disease, unspecified COPD type J44.9 and BMI 29.0-29.9,adult Z68.29 [facility] [address] [facility] [address] [place], [place] [id number] 04/23/2025 Cherelle Borrego Mixed hyperlipidemia E78.2 ; Adult general medical examination Z00.00 ; Peripheral vascular disease I73.9 ; Essential hypertension I10 ; GERD (gastroesophageal reflux disease) K21.9 ; 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, unspecified vessel or lesion type, unspecified whether [place] or transplanted heart I25.111 ; Tobacco abuse Z72.0 ; Osteopenia M85.80 ; Chronic obstructive pulmonary disease, unspecified COPD type J44.9 ; Environmental allergies Z91.048 and BMI 30.0-30.9,adult Z68.30 [facility] [address] [facility] [address] [place], [place] [id number] 07/10/2024 Meri Wadsworth GERD (gastroesophage al reflux disease) K21.9 [facility] [address] [place], [place] [id number] 09/26/2024 Meri Wadsworth Peripheral vascular disease I73.9 ; Mixed hyperlipidemia E78.2 and GERD (gastroesophageal reflux disease) K21.9 [facility] [address] [place], [place] [id number] 01/15/2025 [facility] [address] [place], [place] [id number] 02/26/2025 Meri Wadsworth Essential hypertensi on I10 Assessments Encounter Date Diagnosis (ICD Code) Assessment Notes Treatment Notes Treatment Clinical Notes Section Notes 07/10/2024 GERD (gastroesophageal reflux disease) (ICD-10 - K21.9) 08/24/2024 Folliculitis (ICD-10 - L73.9) 08/24/2024 Abdominal wall hernia (ICD-10 - K43.9) 09/26/2024 Peripheral vascular disease (ICD-10 - I73.9) 02/26/2025 Essential hypertension (ICD-10 - I10) 04/23/2025 Mixed hyperlipidemia (ICD-10 - E78.2) 04/23/2025 Adult general medical examination (ICD-10 - Z00.00) Patient instructed to return to office Annually for Annual Wellness Visits to include annual screenings of Pain assessment, Functional Ability assessment, Cognitive Ability assessment, Fall Risk assessment, Depression screening and Bladder control screening. 01/04/2025 Right sided sciatica (ICD-10 - M54.31) 01/04/2025 Acute UTI (ICD-10 - N39.0) 06/04/2024 Environmental allergies (ICD-10 - Z91.048) to restart allergy meds 06/04/2024 Dermatitis fungal (ICD-10 - B36.9) will try this antifungal cream ; to keep clean nd dry 01/04/2025 Chronic vaginitis (ICD-10 - N76.1) 09/26/2024 Mixed hyperlipidemia (ICD-10 - E78.2) 04/23/2025 Peripheral vascular disease (ICD-10 - I73.9) 09/26/2024 GERD (gastroesophageal reflux disease) (ICD-10 - K21.9) 04/23/2025 Essential hypertension (ICD-10 - I10) 01/04/2025 Essential hypertension (ICD-10 - I10) Not at goal today 01/04/2025 Peripheral vascular disease (ICD-10 - I73.9) 04/23/2025 GERD (gastroesophageal reflux disease) (ICD-10 - K21.9) 04/23/2025 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, unspecified vessel or lesion type, unspecified whether [place] or transplanted heart (ICD-10 - I25.111) 01/04/2025 Breast cancer screening by mammogram (ICD-10 - Z12.31) 01/04/2025 Mixed hyperlipidemia (ICD-10 - E78.2) 04/23/2025 Tobacco abuse (ICD-10 - Z72.0) 04/23/2025 Osteopenia (ICD-10 - M85.80) 01/04/2025 Tobacco abuse (ICD-10 - Z72.0) 01/04/2025 Chronic obstructive pulmonary disease, unspecified COPD type (ICD-10 - J44.9) 04/23/2025 Chronic obstructive pulmonary disease, unspecified COPD type (ICD-10 - J44.9) 04/23/2025 Environmental allergies (ICD-10 - Z91.048) 01/04/2025 BMI 29.0-29.9,adult (ICD-10 - Z68.29) 04/23/2025 BMI 30.0-30.9,adult (ICD-10 - Z68.30) Plan Of Treatment Pending Test Test Name Order Date CBC Venipuncture (in house) 04/23/2025 CT SCAN : CHEST, LUNG CANCER SCREENING L OW DOSE 04/29/2025 P-Comprehensive Metabolic Panel (CMP) P-Lipid Panel 04/23/2025 Next Appt Details Provider Name:Cherelle georges, 10/21/2025 10:00:00 AM, [address], [address], [place], [place], [id number], Insurance Providers Payer Name Payer Address Payer Phone Subscriber Number Group Number Insured Name Patient Relationship to Insured Coverage Start Date Coverage End Date [employer] (MEDICAR E) [address] [address] [place] [address] [id number] MAHI MACKEY Self - patient is the [...]
== END 2025-05-13 23:59 | disposition home or self-care (01) ==
LOC: RAD 09:39
PROVIDERS: PCP Family Medicine; Visit Provider Nurse Practitioner Family
DX: Z12.2 Encounter for screening for malignant neoplasm of respiratory organs (principal); F17.210 Nicotine dependence, cigarettes, uncomplicated; R91.8 Other nonspecific abnormal finding of lung field; I25.10 Atherosclerotic heart disease of native coronary artery without angina pectoris
CPT/HCPCS: 71271